=== PATIENT | female | born 1935 | race Caucasian/White ===

== ENCOUNTER → 2016-08-29 | Outpatient (CLI) | payer MEDICARE, MEDICAID ==
[2016-08-29 11:18] LABS: APPEARANCE,URINE CLEAR; BILIRUBIN,URINE NEGATIVE (NEGATIVE); GLUCOSE, URINE NEGATIVE (NEGATIVE); KETONES,URINE NEGATIVE (NEGATIVE); LEUKOCYTE ESTERASE,URINE SMALL (NEGATIVE); NITRITE,URINE NEGATIVE (NEGATIVE); PROTEIN,URINE NEGATIVE (NEGATIVE); UROBILINOGEN,URINE NEGATIVE mg/dL (<2.0)
[2016-08-29 11:24] LABS: ABSOLUTE EOSINOPHILS # (AUTO) 0.2 10^3/uL (0.0-0.6); ABSOLUTE LYMPHOCYTES (AUTO) 1.3 10^3/uL (0.5-4.7); ABSOLUTE MONOCYTES (AUTO) 0.6 10^3/uL (0.1-1.4); ABSOLUTE NEUT (AUTO) 4.8 10^3/uL (1.7-8.2); BASOPHILS % (AUTO) 0.7 % (0-2); EOSINOPHILS % (AUTO) 3.4 % (0-6); HEMOGLOBIN 12.9 g/dL (12.0-15.5); HGB HCT DIFFERENCE -1.3; LYMPHOCYTES % (AUTO) 18.9 % (13-45); MEAN CORPUSCULAR HEMOGLOBIN 29.6 pg (27.0-33.4); MEAN CORPUSCULAR HGB CONC 32.3 g/dL (32.0-36.0); MEAN CORPUSCULAR VOLUME 92 fl (80-97); RED BLOOD COUNT 4.36 10^6/uL (3.72-5.28); RED CELL DISTRIBUTION WIDTH 14.8 % (11.5-14.0)
[2016-08-29 11:52] LABS: ALANINE AMINOTRANSFERASE 32 U/L (9-52); ALBUMIN 3.5 g/dL (3.5-5.0); ALKALINE PHOSPHATASE 89 U/L (38-126); ANION GAP 10 (5-19); ASPARTATE AMINO TRANSFERASE 29 U/L (14-36); BILIRUBIN,TOTAL 0.5 mg/dL (0.2-1.3); BLOOD UREA NITROGEN 26 mg/dL (7-20); CALCIUM 10.7 mg/dL (8.4-10.2); CARBON DIOXIDE 25 mmol/L (22-30); CHLORIDE 109 mmol/L (98-107); CHOLESTEROL 181.67 mg/dL (0-200); CREATININE RESULT 1.09 mg/dL (0.52-1.25); Direct HDL 44 mg/dL (>40); GLUCOSE 88 mg/dL (75-110); POTASSIUM 5.4 mmol/L (3.6-5.0); SODIUM 144.3 mmol/L (137-145); TOTAL PROTEIN 6.8 g/dL (6.3-8.2); TRIGLYCERIDES 89 mg/dL (<150)
[2016-08-29 12:03] LABS: DIRECT LDL 112 mg/dL (<100)
== END ==
LOC: OD 10:23
DX: J44.9 Chronic obstructive pulmonary disease, unspecified (principal); G89.29 Other chronic pain; F41.9 Anxiety disorder, unspecified; I48.91 Unspecified atrial fibrillation; K21.9 Gastro-esophageal reflux disease without esophagitis; R53.83 Other fatigue; Z79.899 Other long term (current) drug therapy
CPT/HCPCS: 36415; 71020; 80053; 80061; 81001; 83036; 84443; 85025

== ENCOUNTER → 2016-09-01 | Outpatient (CLI) | payer MEDICARE, MEDICAID ==
--- NOTE | 2016-09-01 13:47 | WOMENS IMAGING REPORT ---
EXAM DESCRIPTION: BONE DENSITY HIP/SPINE COMPLETED DATE/TIME: 09/01/2016 1:33 pm REASON FOR STUDY: Z78.0 Z79.899 OTHER GROUP HOME (CURRENT) DRUG THERAPY COMPARISON: December 2014 TECHNIQUE: Dual-Energy X-ray Absorptiometry (DEXA) of the AP Spine and Hip. LIMITATIONS: None. FINDINGS: LUMBAR SPINE: The bone mineral density (BMD) measured from L1-L4 in the AP projection correlates with a T-score of -0.7, which is normal as defined by the World Health Organization. 0.9% increase as compared to the previous HIP: The bone mineral density (BMD) measured in the left hip correlates with a T-score of -1.8, which is o steopenia as defined by the World Health Organization. 3.9% increase as compared to the previous liza dy COMMENT: The World Health Organization defines low BMD as follows: T-score: Normal: Greater than -1.0 Osteopenia: Between -1.0 and -2.5 Osteoporosis: Less than -2.5 without fractures Established osteoporosis: Less than -2.5 with fractures In general, you may wish to consider: Diagnosis Treatment Follow-up DEXA Normal BMD Prevention 2-3 years Osteopenia Prevention/Therapy 1-2 years Osteoporosis Therapy Yearly TECHNICAL DOCUMENTATION: JOB ID: [id number] [employer]- All Rights Reserved
== END ==
LOC: WI 09:48
DX: J44.9 Chronic obstructive pulmonary disease, unspecified (principal); G89.29 Other chronic pain; F41.9 Anxiety disorder, unspecified; I48.91 Unspecified atrial fibrillation; K21.9 Gastro-esophageal reflux disease without esophagitis; Z78.0 Asymptomatic menopausal state; R53.83 Other fatigue; Z79.899 Other long term (current) drug therapy
CPT/HCPCS: 77080

== ENCOUNTER → 2016-10-10 | Outpatient (CLI) | payer MEDICARE, MEDICAID | LOC: OD 10:18 | DX: S83.512A Sprain of anterior cruciate ligament of left knee, initial encounter (principal); X58.XXXA Exposure to other specified factors, initial encounter; R05 Cough | CPT/HCPCS: 87205 ==

== ENCOUNTER → 2016-10-10 | Outpatient (CLI) | payer MEDICARE, MEDICAID | LOC: WI 10:52 | DX: Z12.31 Encounter for screening mammogram for malignant neoplasm of breast (principal) | CPT/HCPCS: 77063; G0202; 77067 ==

== ENCOUNTER → 2016-10-13 | Outpatient (CLI) | payer MEDICARE, MEDICAID ==
[2016-10-13 15:18] LABS: CALCIUM 11.2 mg/dL (8.4-10.2); PHOSPHORUS 4.3 mg/dL (2.5-4.5); POTASSIUM 4.9 mmol/L (3.6-5.0)
== END ==
LOC: OD 14:24
DX: E87.5 Hyperkalemia (principal)
CPT/HCPCS: 36415; 82310; 83970; 84100; 84132

== ENCOUNTER → 2016-11-21 | Outpatient (CLI) | payer MEDICARE, MEDICAID | LOC: OD 12:02 | DX: E55.9 Vitamin D deficiency, unspecified (principal); E83.52 Hypercalcemia | CPT/HCPCS: 36415; 82310 ==

== ENCOUNTER 2016-12-04 12:06 | Emergency (ER) | payer MEDICARE, MEDICAID ==
--- NOTE | 2016-12-04 13:01 | ER Document Report ---
ED Medical Screen (RME) - General Chief Complaint: Weakness Stated Complaint: WEAKNESS Mode of Arrival: Wheelchair Information source: Patient, Relative TRAVEL OUTSIDE OF THE [place] IN LAST 30 DAYS: No - HPI Onset: Other - 2 WEEKS Onset/Duration: Gradual Quality of pain: Achy, Dull Severity: Moderate Associated Symptoms: Weakness. denies: Chills, Dizzy/lightheaded, Fever, Shortness of breath Exacerbated by: Other - ANY ACTIVITY Relieved by: Denies Similar symptoms previously: No Recently seen / treated by doctor: Yes - PCP 11/20, SCHEDULED FOR F/U TODAY BUT WAS CANCELLED - Related Data Smoking: Non-smoker Frequency of alcohol use: None Drug Abuse: None Allergies/Adverse Reactions: ampicillin [Ampicillin] Allergy (Verified 12/04/16 12:30) codeine [Codeine] Allergy (Verified 12/04/16 12:30) Sulfa (Sulfonamide Antibiotics) Allergy (Verified 12/04/16 12:30) Past Medical History - General Information source: Patient, Relative - Social History Cigarette use (# per day): No Chew tobacco use (# tins/day): No Frequency of alcohol use: None Drug Abuse: None Lives with: Family Family history: Reviewed & Not Pertinent - Past Medical History Cardiac Medical History: Reports: Hx Atrial Fibrillation, Hx DVT, Hx Heart Attack, Hx Hypertension, Hx Pulmonary Embolism Pulmonary Medical History: Reports: Hx Bronchitis, Hx COPD, Hx Pneumonia Denies: Hx Tuberculosis Endocrine Medical History: Reports: Hx Hypothyroidism. Denies: Hx Diabetes Mellitus Type 1 Renal/ Medical History: Denies: Hx Peritoneal Dialysis GI Medical History: Reports: Hx Gastroesophageal Reflux Disease Musculoskeltal Medical History: Reports Hx Arthritis Psychiatric Medical History: Denies: Hx Depression Past Surgical History: Reports: Hx Appendectomy, Hx Cholecystectomy - Immunizations Hx Diphtheria, Pertussis, Tetanus Vaccination: Yes - unknown Review of Systems - Review of Systems Constitutional: Malaise, Weakness, Weight loss. denies: Chills, Fever EENT: No symptoms reported Cardiovascular: No symptoms reported Respiratory: No symptoms reported Gastrointestinal: Poor appetite Genitourinary: No symptoms reported Female Genitourinary: No symptoms reported Musculoskeletal: Back pain Neurological/Psychological: No symptoms reported Physical Exam - Vital signs Vitals: Pulse Resp BP Pulse Ox 73 20 169/92 H 97 12/04/16 12:31 12/04/16 12:31 12/04/16 12:31 12/04/16 12:31 Interpretation: Hypertensive - General General appearance: Appears well - HEENT Head: Normocephalic Eyes: Normal - Respiratory Respiratory status: No respiratory distress - Cardiovascular Rhythm: Regular - Extremities General upper extremity: Normal inspection General lower extremity: Normal inspection. No: Edema - Skin Skin Temperature: Warm Skin Moisture: Dry Skin Color: Normal Skin Turgor: Elastic Course - Vital Signs Vital signs: Temp Pulse Resp BP Pulse Ox 73 20 169/92 H 97 12/04/16 12:31 12/04/16 12:31 12/04/16 12:31 12/04/16 12:31
[2016-12-04 13:28] LABS: ABSOLUTE BASOPHILS # (AUTO) 0.1 10^3/uL (0.0-0.2); ABSOLUTE EOSINOPHILS # (AUTO) 0.4 10^3/uL (0.0-0.6); ABSOLUTE LYMPHOCYTES (AUTO) 1.5 10^3/uL (0.5-4.7); ABSOLUTE MONOCYTES (AUTO) 0.6 10^3/uL (0.1-1.4); ABSOLUTE NEUT (AUTO) 3.2 10^3/uL (1.7-8.2); EOSINOPHILS % (AUTO) 6.4 % (0-6); HEMATOCRIT 37.4 % (36.0-47.0); HEMOGLOBIN 12.6 g/dL (12.0-15.5); HGB HCT DIFFERENCE 0.4; MEAN CORPUSCULAR HEMOGLOBIN 30.5 pg (27.0-33.4); MEAN CORPUSCULAR HGB CONC 33.5 g/dL (32.0-36.0); MEAN CORPUSCULAR VOLUME 91 fl (80-97); MONOCYTES % (AUTO) 9.9 % (3-13); RED BLOOD COUNT 4.12 10^6/uL (3.72-5.28); RED CELL DISTRIBUTION WIDTH 13.9 % (11.5-14.0); SEGMENTED NEUTROPHILS % (AUTO) 56.7 % (42-78); WHITE BLOOD COUNT 5.7 10^3/uL (4.0-10.5)
--- NOTE | 2016-12-04 13:32 | EKG REPORT ---
SEVERITY:- ABNORMAL ECG - SINUS OR ECTOPIC ATRIAL RHYTHM RBBB AND LAFB : Confirmed by: Cyril Magdaleno MD 04-Dec-2016 13:31:26
[2016-12-04 13:59] LABS: ALANINE AMINOTRANSFERASE 29 U/L (9-52); ALBUMIN 3.6 g/dL (3.5-5.0); ALKALINE PHOSPHATASE 97 U/L (38-126); ANION GAP 11 (5-19); ASPARTATE AMINO TRANSFERASE 27 U/L (14-36); BILIRUBIN,DIRECT 0.2 mg/dL (0.0-0.4); BILIRUBIN,TOTAL 0.4 mg/dL (0.2-1.3); BLOOD UREA NITROGEN 21 mg/dL (7-20); CALCIUM 10.8 mg/dL (8.4-10.2); CARBON DIOXIDE 27 mmol/L (22-30); CHLORIDE 107 mmol/L (98-107); CREATININE RESULT 0.93 mg/dL (0.52-1.25); GLUCOSE 84 mg/dL (75-110); SODIUM 144.6 mmol/L (137-145); TOTAL PROTEIN 6.8 g/dL (6.3-8.2); URIC ACID 5.1 mg/dL (2.5-7.5)
[2016-12-04 14:10] LABS: APPEARANCE,URINE CLEAR; BILIRUBIN,URINE NEGATIVE (NEGATIVE); GLUCOSE, URINE NEGATIVE (NEGATIVE); KETONES,URINE NEGATIVE (NEGATIVE); LEUKOCYTE ESTERASE,URINE LARGE (NEGATIVE); NITRITE,URINE NEGATIVE (NEGATIVE); PROTEIN,URINE 30 mg/dL (NEGATIVE); URINE SPECIFIC GRAVITY 1.011; UROBILINOGEN,URINE NEGATIVE mg/dL (<2.0)
[2016-12-04 14:16] LABS: ERYTHROCYTE SEDIMENTATION RATE 39 mm/hr (0-30)
[2016-12-04 15:31] VITALS: BP 180/99
== END 2016-12-04 15:40 | disposition home or self-care (01) ==
LOC: ER 12:06
DX: E83.52 Hypercalcemia (principal); N39.0 Urinary tract infection, site not specified; R53.1 Weakness; M54.9 Dorsalgia, unspecified; I25.2 Old myocardial infarction; I10 Essential (primary) hypertension; J44.9 Chronic obstructive pulmonary disease, unspecified; R63.0 Anorexia; R63.4 Abnormal weight loss; Z68.26 Body mass index [BMI] 26.0-26.9, adult; Z88.0 Allergy status to penicillin; Z88.5 Allergy status to narcotic agent; Z88.2 Allergy status to sulfonamides; Z86.718 Personal history of other venous thrombosis and embolism; Z86.711 Personal history of pulmonary embolism; R53.81 Other malaise
CPT/HCPCS: 36415; 80053; 81001; 84443; 84550; 85025; 85652; 93005; 93010; 99285

== ENCOUNTER 2016-12-29 12:56 | Outpatient (CLI) | payer MEDICARE, MEDICAID ==
[~2016-12-29 12:56] MED LIST: FERUMOXYTOL (NON-ESRD) 510 MG/NS 100 ML IV PRN; NORMAL SALINE 250 ML IV PRN
== END 2016-12-29 14:14 | disposition home or self-care (01) ==
LOC: II 12:56 → 5TH 12:57 → II 14:14
PROVIDERS: ATTEND Internal Medicine
PROC: 3E033GC Introduction of Other Therapeutic Substance into Peripheral Vein, Percutaneous Approach (ICD-10-PCS; principal; 2016-12-29)
DX: D50.9 Iron deficiency anemia, unspecified (principal); N18.2 Chronic kidney disease, stage 2 (mild)
CPT/HCPCS: 96365; Q0138

== ENCOUNTER → 2017-01-03 | Outpatient (CLI) | payer MEDICARE, MEDICAID ==
--- NOTE | 2017-01-03 12:52 | RADIOLOGY REPORT (SQ) ---
EXAM DESCRIPTION: CHEST PA/LATERAL COMPLETED DATE/TIME: 01/03/2017 12:35 pm REASON FOR STUDY: COUGH R05 COUGH COMPARISON: 08/29/2016. NUMBER OF VIEWS: Two view. TECHNIQUE: Frontal and lateral radiographic views of the chest acquired. LIMITATIONS: None. FINDINGS: LUNGS AND PLEURA: Chronic interstitial changes and pleural thickening in the apices. Few calcified granulomas. No infiltrates, masses or pneumothorax. No pleural effusion. Attenuated blood vessels and flattened sung-diaphragms. MEDIASTINUM AND HILAR STRUCTURES: No masses. No contour abnormalities. HEART AND VASCULAR STRUCTURES: Heart normal in size and contour. No evidence for failure. BONES: No acute findings. HARDWARE: None in the chest. OTHER: No other significant finding. IMPRESSION: COPD. CHRONIC SCARRING. NO ACUTE RADIOGRAPHIC FINDING IN THE CHEST. TECHNICAL DOCUMENTATION: JOB ID: [id number] [employer]- All Rights Reserved
== END ==
LOC: OD 12:25
PROVIDERS: ATTEND Physician Assistant
DX: R05 Cough (principal); J44.9 Chronic obstructive pulmonary disease, unspecified
CPT/HCPCS: 71020

== ENCOUNTER 2017-01-05 09:52 | Outpatient (CLI) | payer MEDICARE, MEDICAID ==
[2017-01-05 11:09] VITALS: BP 183/80
== END 2017-01-05 11:10 | disposition home or self-care (01) ==
LOC: II 09:52 → 5TH 09:53 → II 11:10
PROVIDERS: ATTEND Internal Medicine
PROC: 3E033GC Introduction of Other Therapeutic Substance into Peripheral Vein, Percutaneous Approach (ICD-10-PCS; principal; 2017-01-05)
DX: D50.9 Iron deficiency anemia, unspecified (principal); N18.2 Chronic kidney disease, stage 2 (mild)
CPT/HCPCS: 96365; Q0138

== ENCOUNTER → 2017-04-23 | Outpatient (CLI) | payer MEDICARE, MEDICAID ==
--- NOTE | 2017-04-23 12:54 | RADIOLOGY REPORT (SQ) ---
EXAM DESCRIPTION: LUMBAR SPINE COMPLETE COMPLETED DATE/TIME: 04/23/2017 12:38 pm REASON FOR STUDY: LOW BACK PAIN M54.5 LOW BACK PAIN COMPARISON: 02/26/2014 NUMBER OF VIEWS: Five views including obliques. TECHNIQUE: AP, lateral, oblique, and sacral radiographic images acquired of the lumbar spine. LIMITATIONS: None. FINDINGS: MINERALIZATION: Normal. SEGMENTATION: Normal. No transitional anatomy. ALIGNMENT: There is a rotatory levoscoliosis centered at L3. There is lateral listhesis of L4 relati on to L5. VERTEBRAE: Maintained height. No fracture or worrisome bone lesion. DISCS: Degenerative disc disease is present at L3-4, L4-5, and L5-S1 to lesser degree. Marginal oste ophytes are present. POSTERIOR ELEMENTS: Hypertrophic facet changes are present from L3-S1. HARDWARE: None in the spine. PARASPINAL SOFT TISSUES: Normal. PELVIS: Intact as visualized. No fractures or worrisome bone lesions. SI joints intact. OTHER: No other significant finding. IMPRESSION: 1. Scoliosis with left lateral listhesis of L4 on L5. 2. 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
== END ==
LOC: OD 12:05
PROVIDERS: ATTEND Physician Assistant
DX: M54.5 Low back pain (principal)
CPT/HCPCS: 72110

== ENCOUNTER → 2017-05-25 | Outpatient (CLI) | payer MEDICARE, MEDICAID ==
--- NOTE | 2017-05-25 12:23 | RADIOLOGY REPORT (SQ) ---
EXAM DESCRIPTION: CHEST PA/LATERAL COMPLETED DATE/TIME: 05/25/2017 11:36 am REASON FOR STUDY: COUGH COMPARISON: 01/03/2017 EXAM PARAMETERS: NUMBER OF VIEWS: two views TECHNIQUE: Digital Frontal and Lateral radiographic views of the chest acquired. RADIATION DOSE: NA LIMITATIONS: none FINDINGS: LUNGS AND PLEURA: No opacities, masses or pneumothorax. No pleural effusion. Chronic appe aring changes are again identified. Calcified granuloma appears stable. Again there is evidence for obstructive lung disease. MEDIASTINUM AND HILAR STRUCTURES: No masses or contour abnormalities. HEART AND VASCULAR STRUCTURES: Heart normal size. No evidence for failure. BONES: Bony structures are osteopenic with an exaggerated thoracic kyphosis. There is mild compressi on of 1 of the lower thoracic vertebra unchanged from the previous study. HARDWARE: None in the chest. OTHER: No other significant finding. IMPRESSION: No significant interval change. No acute findings. Other findings as noted above TECHNICAL DOCUMENTATION: JOB ID: [id number] [employer]- All Rights Reserved
== END ==
LOC: OD 11:06
PROVIDERS: ATTEND Physician Assistant
DX: R05 Cough (principal)
CPT/HCPCS: 71020

== ENCOUNTER → 2017-10-23 | Outpatient (CLI) | payer MEDICARE, MEDICAID ==
--- NOTE | 2017-10-23 11:35 | RADIOLOGY REPORT (SQ) ---
EXAM DESCRIPTION: CHEST PA/LATERAL COMPLETED DATE/TIME: 10/23/2017 11:09 am REASON FOR STUDY: WHEEZING COMPARISON: Chest films 08/24/2015, 08/29/2016, 01/03/2017, 05/25/2017 EXAM PARAMETERS: NUMBER OF VIEWS: two views TECHNIQUE: Digital Frontal and Lateral radiographic views of the chest acquired. RADIATION DOSE: NA LIMITATIONS: none FINDINGS: LUNGS AND PLEURA: Lungs are hyperlucent from obstructive disease. Stable biapical mild pl europarenchymal scarring. Old right mid lung calcified granuloma. No acute infiltrates. No pleural effusion. No pneumothorax. MEDIASTINUM AND HILAR STRUCTURES: No masses or contour abnormalities. HEART AND VASCULAR STRUCTURES: Heart normal size. No evidence for failure. BONES: Osteoporotic HARDWARE: Clips right upper quadrant post cholecystectomy OTHER: No other significant finding. IMPRESSION: Obstructive lung disease No acute changes TECHNICAL DOCUMENTATION: JOB ID: [id number] [employer]- All Rights Reserved Reading location - IP/workstation name: [email or web address]
== END ==
LOC: OD 10:47
PROVIDERS: ATTEND Physician Assistant
DX: J44.9 Chronic obstructive pulmonary disease, unspecified (principal); R06.2 Wheezing
CPT/HCPCS: 71046

== ENCOUNTER 2017-12-25 17:09 | Emergency (ER) | payer MEDICARE, MEDICAID ==
--- NOTE | 2017-12-25 17:43 | ER Document Report ---
ED Medical Screen (RME) - General Chief Complaint: Productive Cough Stated Complaint: COUGH, BLOOD IN SPUTUM Time Seen by Provider: 12/25/17 17:36 Notes: RAPID MEDICAL EVALUATION DISCLOSURE I have seen this patient as part of a Rapid Medical Evaluation and, if applicable, placed any initially appropriate orders. The patient will be seen and fully evaluated, including a full history and physical exam, by a provider ( in Main ED or Fast Track) when a room becomes available. 82-year-old female sent here by her PCP office for spitting up blood. She states that this morning she started to spit up some blood but has not had any new cough or vomiting. She has had some new midsternal nonradiating intermittent chest pain over the past few days but cannot tell me if this is worse with exertion because she reports that she does not walk much due to generalized weakness (chronic). She has shortness of breath at baseline and it is unchanged from her baseline. She does take Xarelto. EXAM CTAB RRR TRAVEL OUTSIDE OF THE [place] IN LAST 30 DAYS: No - Related Data Allergies/Adverse Reactions: ampicillin [Ampicillin] Allergy (Verified 12/04/16 12:30) codeine [Codeine] Allergy (Verified 12/04/16 12:30) Sulfa (Sulfonamide Antibiotics) Allergy (Verified 12/04/16 12:30) Past Medical History - Social History Family history: Reviewed & Not Pertinent - Past Medical History Cardiac Medical History: Reports: Hx Atrial Fibrillation, Hx DVT, Hx Heart Attack, Hx Hypertension, Hx Pulmonary Embolism Pulmonary Medical History: Reports: Hx Bronchitis, Hx COPD, Hx Pneumonia Denies: Hx Tuberculosis Endocrine Medical History: Reports: Hx Hypothyroidism. Denies: Hx Diabetes Mellitus Type 1 Renal/ Medical History: Denies: Hx Peritoneal Dialysis GI Medical History: Reports: Hx Gastroesophageal Reflux Disease Musculoskeltal Medical History: Reports Hx Arthritis Psychiatric Medical History: Denies: Hx Depression Past Surgical History: Reports: Hx Appendectomy, Hx Cholecystectomy - Immunizations Hx Diphtheria, Pertussis, Tetanus Vaccination: Yes - unknown Physical Exam - Vital signs Vitals: Temp Pulse Resp BP Pulse Ox 98.8 F 84 20 199/103 H 96 12/25/17 17:19 12/25/17 17:19 12/25/17 17:19 12/25/17 17:19 12/25/17 17:19 Course - Vital Signs Vital signs: Temp Pulse Resp BP Pulse Ox 98.8 F 84 20 199/103 H 96 12/25/17 17:19 12/25/17 17:19 12/25/17 17:19 12/25/17 17:19 12/25/17 17:19
--- NOTE | 2017-12-25 18:07 | RADIOLOGY REPORT (SQ) ---
EXAM DESCRIPTION: CHEST 2 VIEWS COMPLETED DATE/TIME: 12/25/2017 5:59 pm REASON FOR STUDY: 'spitting up blood' COMPARISON: 08/24/2015 EXAM PARAMETERS: NUMBER OF VIEWS: two views TECHNIQUE: Digital Frontal and Lateral radiographic views of the chest acquired. RADIATION DOSE: NA LIMITATIONS: none FINDINGS: LUNGS AND PLEURA: Stable chronic lung change without new opacities, masses or pneumothorax . No pleural effusion. MEDIASTINUM AND HILAR STRUCTURES: No masses or contour abnormalities. HEART AND VASCULAR STRUCTURES: Heart stable in size. No evidence for failure. BONES: No acute findings. HARDWARE: None in the chest. OTHER: No other significant finding. IMPRESSION: NO ACUTE RADIOGRAPHIC FINDING IN THE CHEST. NO SIGNIFICANT CHANGE FROM PRIOR STUDY. TECHNICAL DOCUMENTATION: JOB ID: [id number] [employer]- All Rights Reserved Reading location - IP/workstation name: [email or web address]
[2017-12-25 19:02] LABS: ABSOLUTE BASOPHILS # (AUTO) 0.1 10^3/uL (0.0-0.2); ABSOLUTE EOSINOPHILS # (AUTO) 0.3 10^3/uL (0.0-0.6); ABSOLUTE MONOCYTES (AUTO) 0.7 10^3/uL (0.1-1.4); ABSOLUTE NEUT (AUTO) 4.5 10^3/uL (1.7-8.2); BASOPHILS % (AUTO) 0.9 % (0-2); EOSINOPHILS % (AUTO) 3.3 % (0-6); HEMATOCRIT 40.8 % (36.0-47.0); HEMOGLOBIN 13.7 g/dL (12.0-15.5); LYMPHOCYTES % (AUTO) 26.8 % (13-45); MEAN CORPUSCULAR HEMOGLOBIN 31.3 pg (27.0-33.4); MEAN CORPUSCULAR HGB CONC 33.7 g/dL (32.0-36.0); MEAN CORPUSCULAR VOLUME 93 fl (80-97); MONOCYTES % (AUTO) 9.1 % (3-13); PLATELET COUNT 200 10^3/uL (150-450); RED BLOOD COUNT 4.38 10^6/uL (3.72-5.28); RED CELL DISTRIBUTION WIDTH 14.6 % (11.5-14.0); SEGMENTED NEUTROPHILS % (AUTO) 59.9 % (42-78); TOTAL CELLS COUNTED % (AUTO) 100 %; WHITE BLOOD COUNT 7.5 10^3/uL (4.0-10.5)
[2017-12-25 19:19] LABS: ALANINE AMINOTRANSFERASE 35 U/L (9-52); ALBUMIN 3.9 g/dL (3.5-5.0); ALKALINE PHOSPHATASE 76 U/L (38-126); ANION GAP 12 (5-19); ASPARTATE AMINO TRANSFERASE 31 U/L (14-36); BILIRUBIN,DIRECT 0.2 mg/dL (0.0-0.4); BILIRUBIN,TOTAL 0.2 mg/dL (0.2-1.3); BLOOD UREA NITROGEN 28 mg/dL (7-20); CALCIUM 10.7 mg/dL (8.4-10.2); CARBON DIOXIDE 25 mmol/L (22-30); CHLORIDE 108 mmol/L (98-107); GLUCOSE 92 mg/dL (75-110); POTASSIUM 4.5 mmol/L (3.6-5.0); SODIUM 144.6 mmol/L (137-145)
[2017-12-25 19:25] LABS: INTERNATIONAL RATION (INR) 0.95; PARTIAL THROMBOPLASTIN TIME 26.1 SEC (23.5-35.8); PROTHROMBIN TIME 13.2 SEC (11.4-15.4)
--- NOTE | 2017-12-25 20:28 | RADIOLOGY REPORT (SQ) ---
EXAM DESCRIPTION: CTA CHEST COMPLETED DATE/TIME: 12/25/2017 8:15 pm REASON FOR STUDY: spitting up blood, on xarelto COMPARISON: 05/14/2013 TECHNIQUE: CT scan of the chest performed using helical scanning technique with dynamic intravenous contrast injection. Images reviewed with lung, soft tissue and bone windows. Reconstructed coronal and sagittal MPR images reviewed. Additional 3 dimensional post-processing performed to develop Maximal Intensity Projection images (AR P). All images stored on PACS. All CT scanners at this facility use dose modulation, iterative reconstruction, and/or weight based d osing when appropriate to reduce radiation dose to as low as reasonably achievable (ALARA). [facility]: Dose Right [facility]: CareDose [facility]: Dose Right [facility]: Teradose 4D [facility]: Smart [employer] CONTRAST TYPE AND DOSE: contrast/concentration: Isovue 370.00 mg/ml; Total Contrast Delivered: 66.0 ml; Total Saline Delivered: 106.0 ml Contrast bolus optimized for the pulmonary arteries. Not diagnostic for the aorta. RENAL FUNCTION: GFR > 60. RADIATION DOSE: CT Rad equipment meets quality standard of care and radiation dose reduction techniq ues were employed. CTDIvol: 14.3 - 16.5 mGy. DLP: 537 mGy-cm. . LIMITATIONS: None. FINDINGS: LUNGS AND PLEURA: No consolidation or pleural effusion. Similar bronchiectasis and chroni c interstitial changes-nodularity. AORTA AND GREAT VESSELS: No aneurysm. Contrast bolus not optimized for the aorta. HEART: No pericardial effusion. Mild coronary artery calcifications. PULMONARY ARTERIES: No emboli visualized in the main pulmonary arteries or the segmental branches. HILAR AND MEDIASTINAL STRUCTURES: Similar mediastinal-hilar nodes. HARDWARE: None in the chest. UPPER ABDOMEN: No significant findings. Limited exam. THYROID AND OTHER SOFT TISSUES: No masses. No adenopathy. BONES: No acute finding. 3D MIPS: Confirm above findings. OTHER: No other significant finding. IMPRESSION: No emboli visualized in the main pulmonary arteries or the segmental branches. No consolidation or pleural effusion. Similar bronchiectasis and chronic interstitial changes-nodula rity. COMMENT: Quality ID # [id number]: Final reports with documentation of one or more dose reduction techniques (e.g., Automated exposure control, adjustment of the mA and/or kV according to patient size, use of iterative reconstruction technique) TECHNICAL DOCUMENTATION: JOB ID: [id number] [place]-72 2010 [employer]- All Rights Reserved Reading location - IP/workstation name: [email or web address]
--- NOTE | 2017-12-25 20:37 | EKG REPORT ---
SEVERITY:- ABNORMAL ECG - SINUS RHYTHM RBBB AND LAFB : Confirmed by: Cyril Magdaleno MD 25-Dec-2017 20:35:45
--- NOTE | 2017-12-25 21:25 | ER Document Report ---
ED General - General Chief Complaint: Productive Cough Stated Complaint: COUGH, BLOOD IN SPUTUM Time Seen by Provider: 12/25/17 17:36 Mode of Arrival: Ambulatory Information source: Patient Notes: 82-year-old female previous patient who presents the emergency department with complaint of coughing up blood this morning. Patient reports that she had an episode of coughing up bright red blood clots which she called her primary care doctor and had an appointment with at 430pm today. Patient reports that Dr. Padilla referred her to the emergency department for possible workup for a PE. Patient reports that while Dr. Padilla was assessing her he was able to elicit some chest pain that is only present with palpation to the right side of her chest. Patient denies any other symptoms or any other recent illness. Patient reports that she takes Xarelto for a history of DVTs, PEs as well as atrial fibrillation. TRAVEL OUTSIDE OF THE [place] IN LAST 30 DAYS: No - Related Data Allergies/Adverse Reactions: ampicillin [Ampicillin] Allergy (Verified 12/04/16 12:30) codeine [Codeine] Allergy (Verified 12/04/16 12:30) Sulfa (Sulfonamide Antibiotics) Allergy (Verified 12/04/16 12:30) Past Medical History - General Information source: Patient - Social History Smoking Status: Never Smoker Frequency of alcohol use: None Lives with: Alone Family History: Reviewed & Not Pertinent, Other Patient has suicidal ideation: No Patient has homicidal ideation: No - Past Medical History Cardiac Medical History: Reports: Hx Atrial Fibrillation, Hx DVT, Hx Heart Attack, Hx Hypertension, Hx Pulmonary Embolism Pulmonary Medical History: Reports: Hx Bronchitis, Hx COPD, Hx Pneumonia Denies: Hx Tuberculosis Endocrine Medical History: Reports: Hx Hypothyroidism. Denies: Hx Diabetes Mellitus Type 1 Renal/ Medical History: Denies: Hx Peritoneal Dialysis GI Medical History: Reports: Hx Gastroesophageal Reflux Disease Musculoskeltal Medical History: Reports Hx Arthritis Psychiatric Medical History: Denies: Hx Depression Past Surgical History: Reports: Hx Appendectomy, Hx Cholecystectomy - Immunizations Hx Diphtheria, Pertussis, Tetanus Vaccination: Yes - unknown Hx Pneumococcal Vaccination: 08/06/06 Review of Systems - Review of Systems Constitutional: No symptoms reported EENT: No symptoms reported Cardiovascular: See HPI Respiratory: See HPI Gastrointestinal: No symptoms reported Genitourinary: No symptoms reported Female Genitourinary: No symptoms reported Musculoskeletal: No symptoms reported Skin: No symptoms reported Hematologic/Lymphatic: No symptoms reported Neurological/Psychological: No symptoms reported Physical Exam - Vital signs Vitals: Temp Pulse Resp BP Pulse Ox 98.8 F 84 20 199/103 H 96 12/25/17 17:19 12/25/17 17:19 12/25/17 17:19 12/25/17 17:19 12/25/17 17:19 - Notes Notes: PHYSICAL EXAMINATION: GENERAL: Well-appearing, well-nourished and in no acute distress. HEAD: Atraumatic, normocephalic. EYES: Pupils equal round and reactive to light, extraocular movements intact, conjunctiva are normal. ENT: Nares patent, oropharynx clear without exudates. Moist mucous membranes. NECK: Normal range of motion, supple without lymphadenopathy LUNGS: Breath sounds clear to auscultation bilaterally and equal. No wheezes rales or rhonchi. HEART: Regular rate and rhythm without murmurs ABDOMEN: Soft, nontender, nondistended abdomen. No guarding, no rebound. No masses appreciated. Female : deferred Musculoskeletal: Normal range of motion, no pitting or edema. No cyanosis. NEUROLOGICAL: Cranial nerves grossly intact. Normal speech, normal gait. Normal sensory, motor exams PSYCH: Normal mood, normal affect. SKIN: Warm, Dry, normal turgor, no rashes or lesions noted. Course - Re-evaluation Re-evalutation: 82-year-old female patient presenting with hemoptysis and right-sided chest pain only with palpation. Patient has a history of pulmonary embolism and DVT. Patient was sent over by her primary care provider, Dr. Padilla for evaluation of possible pulmonary embolism. Patient was initially seen up from triage and orders were initiated. CBC, comprehensive metabolic panel and coagulation panel are all unremarkable. Chest x-ray is unremarkable. EKG is unchanged from previous, no ST segment elevations or depressions and no other acute findings. Currently pending CTA. Patient denies any chest pain or shortness of breath and denies any additional hemoptysis since her one episode this morning. Patient is hypertensive, however patient denies taking her blood pressure medications evening. Patient has no tachycardia, no shortness of breath and no dyspnea. CTA negative for any acute findings to include pulmonary embolism or pneumonia. Consult to Dr. Padilla via telephone who recommends patient to hold her Xarelto today and follow-up with him in his office first thing in the morning. Patient given strict ED return precautions. Patient does verbalize understanding and will see Dr. Padilla in the office in the morning. - Vital Signs Vital signs: Temp Pulse Resp BP Pulse Ox 98.2 F 84 17 178/88 H 100 12/25/17 21:15 12/25/17 17:19 12/25/17 21:15 12/25/17 21:20 12/25/17 21:15 - Laboratory Result Diagrams: 12/25/17 18:55 12/25/17 18:55 Laboratory results interpreted by me: 12/25/17 12/25/17 18:55 18:55 RDW 14.6 H Chloride 108 H BUN 28 H Est GFR (Non-Af Amer) 50 L Calcium 10.7 H Discharge - Discharge Clinical Impression: Hemoptysis Condition: Stable Disposition: HOME, SELF-CARE Admitting Provider: Hans Additional Instructions: Hemoptysis Hemoptysis (coughing up blood) can occur with many different diseases. The physician has evaluated you to see if there is evidence of an underlying problem requiring further evaluation. If he has recommended further tests, you should follow up as instructed. Hemoptysis without an identifiable cause can be due to tumors or hidden infections. The CT scan of your chest was normal. I spoke with Dr. Padilla who recommends to hold the dose of Xarelto for today if you have not taken it yet. Please follow up with him in the morning. Return for a recheck if the blood increases greatly in amount, or if you develop shortness of breath, high fever, severe chest pain, or other alarming new symptoms. Referrals: RALPH PADILLA MD [Primary Care Provider] - Follow up as needed
[2017-12-25 21:44] VITALS: BP 178/88
== END 2017-12-25 21:35 | disposition home or self-care (01) ==
LOC: ER 17:09
DX: R04.2 Hemoptysis (principal); I48.91 Unspecified atrial fibrillation; I10 Essential (primary) hypertension; Z86.718 Personal history of other venous thrombosis and embolism; I25.2 Old myocardial infarction; Z88.2 Allergy status to sulfonamides; Z88.6 Allergy status to analgesic agent; Z90.49 Acquired absence of other specified parts of digestive tract
CPT/HCPCS: 36415; 71046; 71275; 80053; 84484; 85025; 85610; 85730; 93005; 93010; 99284

== ENCOUNTER 2018-02-24 09:00 | Inpatient (IN) | payer MEDICARE, MEDICAID ==
[2018-02-24] MEDS ORDERED: ONDANSETRON 4 MG TAB.RAPDIS PO ONE (09:28)
[2018-02-24] MEDS ORDERED: IPRATROPIUM/ALBUTEROL 0.5-2.5 MG/3 ML AMPUL NEB ONE (09:29)
[2018-02-24] MEDS ORDERED: DILTIAZEM HCL 120 MG CAP.SR.24H PO ONE (09:29)
--- NOTE | 2018-02-24 09:31 | ER Document Report ---
ED Medical Screen (RME) - General Chief Complaint: Vomiting Stated Complaint: HEAD PAIN Time Seen by Provider: 02/24/18 09:21 TRAVEL OUTSIDE OF THE [place] IN LAST 30 DAYS: No - HPI Notes: 02/24/18 09:29 Patient coming in complaining of pain everywhere is ear pain and throat pain pain diffusely through her whole body specific area with nausea vomiting shortness of breath coughing yellow-green sputum history COPD. Patient also has history of atrial fibrillation on Xarelto. Patient requiring oxygen here in triage. - Related Data Allergies/Adverse Reactions: ampicillin [Ampicillin] Allergy (Verified 02/24/18 09:01) codeine [Codeine] Allergy (Verified 02/24/18 09:01) Sulfa (Sulfonamide Antibiotics) Allergy (Verified 02/24/18 09:01) Past Medical History - Social History Chew tobacco use (# tins/day): No Frequency of alcohol use: None Drug Abuse: None Family history: Reviewed & Not Pertinent - Past Medical History Cardiac Medical History: Reports: Hx Atrial Fibrillation, Hx DVT, Hx Heart Attack, Hx Hypertension, Hx Pulmonary Embolism Pulmonary Medical History: Reports: Hx Bronchitis, Hx COPD, Hx Pneumonia Denies: Hx Tuberculosis Endocrine Medical History: Reports: Hx Hypothyroidism. Denies: Hx Diabetes Mellitus Type 1 Renal/ Medical History: Denies: Hx Peritoneal Dialysis GI Medical History: Reports: Hx Gastroesophageal Reflux Disease Musculoskeltal Medical History: Reports Hx Arthritis Psychiatric Medical History: Denies: Hx Depression Past Surgical History: Reports: Hx Appendectomy, Hx Cholecystectomy - Immunizations Hx Diphtheria, Pertussis, Tetanus Vaccination: Yes - unknown Review of Systems - Review of Systems Respiratory: Cough, Sputum, Wheezing Gastrointestinal: Nausea, Vomiting Physical Exam - Vital signs Vitals: Temp Pulse Resp BP Pulse Ox 99.2 F 76 24 H 142/72 H 91 L 02/24/18 09:11 02/24/18 09:11 02/24/18 09:11 02/24/18 09:11 02/24/18 09:11 - Respiratory Respiratory status: No respiratory distress Chest status: Nontender Breath sounds: Wheezing Chest palpation: Other Course - Vital Signs Vital signs: Temp Pulse Resp BP Pulse Ox 99.2 F 76 24 H 142/72 H 91 L 02/24/18 09:11 02/24/18 09:11 02/24/18 09:11 02/24/18 09:11 02/24/18 09:11 Doctor's Discharge - Discharge Referrals: RALPH PADILLA MD [Primary Care Provider] - Follow up as needed
--- NOTE | 2018-02-24 10:13 | ER Document Report ---
ED Respiratory Problem - General Chief Complaint: Vomiting Stated Complaint: HEAD PAIN Time Seen by Provider: 02/24/18 09:21 Mode of Arrival: Ambulatory Information source: Patient Notes: 82-year-old female has been feeling ill since with body aches chills and cough. She is coughing up some mucus. Today she seemed more short of breath than yesterday. She does have a history of COPD. No chest pain. She did vomit but has no abdominal pain or dysuria. No flank pain. Her daughter is here with her. TRAVEL OUTSIDE OF THE [place] IN LAST 30 DAYS: No - Related Data Allergies/Adverse Reactions: ampicillin [Ampicillin] Allergy (Verified 02/24/18 09:01) codeine [Codeine] Allergy (Verified 02/24/18 09:01) Sulfa (Sulfonamide Antibiotics) Allergy (Verified 02/24/18 09:01) Past Medical History - General Information source: Patient - Social History Smoking Status: Former Smoker Chew tobacco use (# tins/day): No Frequency of alcohol use: None Drug Abuse: None Lives with: Family Family History: Reviewed & Not Pertinent, Other Patient has suicidal ideation: No Patient has homicidal ideation: No - Past Medical History Cardiac Medical History: Reports: Hx Atrial Fibrillation, Hx DVT, Hx Heart Attack, Hx Hypertension, Hx Pulmonary Embolism Pulmonary Medical History: Reports: Hx Bronchitis, Hx COPD, Hx Pneumonia Denies: Hx Tuberculosis Endocrine Medical History: Reports: Hx Hypothyroidism Renal/ Medical History: Denies: Hx Peritoneal Dialysis GI Medical History: Reports: Hx Gastroesophageal Reflux Disease Musculoskeletal Medical History: Reports Hx Arthritis Psychiatric Medical History: Denies: Hx Depression Past Surgical History: Reports: Hx Appendectomy, Hx Cholecystectomy - Immunizations Hx Diphtheria, Pertussis, Tetanus Vaccination: Yes - unknown Hx Pneumococcal Vaccination: 08/06/06 Review of Systems - Review of Systems Constitutional: See HPI EENT: See HPI Cardiovascular: No symptoms reported Respiratory: See HPI Gastrointestinal: No symptoms reported Genitourinary: No symptoms reported Female Genitourinary: No symptoms reported Musculoskeletal: No symptoms reported Skin: No symptoms reported Hematologic/Lymphatic: No symptoms reported Neurological/Psychological: No symptoms reported Physical Exam - Vital signs Vitals: Temp Pulse Resp BP Pulse Ox 99.2 F 76 24 H 142/72 H 91 L 02/24/18 09:11 02/24/18 09:11 02/24/18 09:11 02/24/18 09:11 02/24/18 09:11 Interpretation: Tachycardic, Hypoxic, Tachypneic - General General appearance: Alert, Other - HEENT Head: Normocephalic, Atraumatic Eyes: Normal Conjunctiva: Normal Pupils: PERRL Tympanic membrane: Normal Mucous membranes: Dry Pharynx: Normal Neck: Supple. No: Lymphadenopathy - Respiratory Respiratory status: No respiratory distress Chest status: Nontender Breath sounds: Rales - right, Wheezing - Inspiratory and expiratory bilaterally Chest palpation: Normal - Cardiovascular Rhythm: Regular Heart sounds: Normal auscultation Murmur: No - Abdominal Inspection: Normal Distension: No distension Bowel sounds: Normal Tenderness: Nontender Organomegaly: No organomegaly - Back Back: Normal, Nontender. No: CVA tenderness - Extremities General upper extremity: Normal inspection, Nontender, Normal color, Normal ROM , Normal temperature General lower extremity: Normal inspection, Nontender, Normal color, Normal ROM , Normal temperature, Normal weight bearing. No: Shreya's sign - Neurological Neuro grossly intact: Yes Cognition: Normal Orientation: AAOx4 Camelia Coma Scale Eye Opening: Spontaneous Camelia Coma Scale Verbal: Oriented Camelia Coma Scale Motor: Obeys Commands Camelia Coma Scale Total: 15 Speech: Normal Motor strength normal: LUE, RUE, LLE, RLE Sensory: Normal - Psychological Associated symptoms: Normal affect, Normal mood - Skin Skin Temperature: Warm Skin Moisture: Dry Skin Color: Normal Skin irregularity: negative: Rash Course - Re-evaluation Re-evalutation: 02/24/18 11:[address] aCrlisle give her Levaquin 750 mg IV, 500 mL bolus do not want to initiate more fluid than that since the chest x-ray shows possible edema per the radiologist. Her white count is 19,000. O2 is 4 L/min nasal cannula at this time. Her pulse initially was 120s-130s A. fib with RVR and she was given diltiazem 120 mg p.o. and it is trending down at this time. She is still mildly tachypneic. BMP is 3460. EKG shows atrial fibrillation with RVR and right bundle branch block. Signed by Dr. Carlisle who evaluated the EKG as well. 02/24/18 11:49 Lactic acid is 2.6. 02/24/18 11:[address] huff. 02/24/18 11:[address] Huff will admit for Dr. Maxwell to [facility] for pneumonia. I also added a d- dimer if she has a history of PE. Her pulse ox is 93 while getting a albuterol 5 mg.She is hungry so I will order a tray and she is willing to be admitted. - Vital Signs Vital signs: Temp Pulse Resp BP Pulse Ox 102.6 F H 46 L 19 124/94 H 95 02/24/18 14:55 02/24/18 09:12 02/24/18 14:00 02/24/18 12:00 02/24/18 14:00 - Laboratory Result Diagrams: 02/24/18 10:26 02/24/18 10:26 Laboratory results interpreted by me: 02/24/18 02/24/18 02/24/18 10:26 10:26 10:26 WBC 19.6 H Seg Neutrophils % 85.0 H Lymphocytes % 7.6 L Absolute Neutrophils 16.7 H D-Dimer Carbon Dioxide 21 L BUN 28 H Creatinine 1.42 H Est GFR ( Amer) 43 L Est GFR (Non-Af Amer) 35 L Lactic Acid 2.6 H Direct Bilirubin 0.5 H NT-Pro-B Natriuret Pep Urine Protein Urine Urobilinogen 02/24/18 02/24/18 02/24/18 10:26 10:26 11:22 WBC Seg Neutrophils % Lymphocytes % Absolute Neutrophils D-Dimer 0.60 H Carbon Dioxide BUN Creatinine Est GFR ( Amer) Est GFR (Non-Af Amer) Lactic Acid Direct Bilirubin NT-Pro-B Natriuret Pep 3180 H Urine Protein 100 H Urine Urobilinogen 2.0 H Discharge - Discharge Clinical Impression: Hypoxia Right lower lobe pneumonia Qualifiers: Pneumonia type: due to unspecified organism Qualified Code(s): J18.1 - Lobar pneumonia, unspecified organism Atrial fibrillation Qualifiers: Atrial fibrillation type: chronic Qualified Code(s): I48.2 - Chronic atrial fibrillation Condition: Stable Disposition: ADMITTED INPATIENT Admitting Provider: Hans Unit Admitted: [facility]
[2018-02-24] MEDS ORDERED: ALBUTEROL SULFATE 0.083% NEB 2.5 MG/3 ML AMPUL NEB ONE (10:24)
--- NOTE | 2018-02-24 10:31 | RADIOLOGY REPORT (SQ) ---
EXAM DESCRIPTION: CHEST SINGLE VIEW COMPLETED DATE/TIME: 02/24/2018 10:21 am REASON FOR STUDY: sob, PER ERICKA CHANGE TO PORTABLE COMPARISON: 12/25/2017 and 10/23/2017 EXAM PARAMETERS: NUMBER OF VIEWS: One view. TECHNIQUE: Single frontal radiographic view of the chest acquired. RADIATION DOSE: NA LIMITATIONS: None. FINDINGS: LUNGS AND PLEURA: Increasing airspace opacities in the right lung base. No pleural effusi on or pneumothorax appreciated MEDIASTINUM AND HILAR STRUCTURES: Unchanged HEART AND VASCULAR STRUCTURES: Unchanged BONES: No acute findings. HARDWARE: None in the chest. OTHER: No other significant finding. IMPRESSION: Increasing airspace opacities in the right lung base. This could be consistent with pne umonia in the correct clinical setting. Differential diagnosis includes early pulmonary edema. TECHNICAL DOCUMENTATION: JOB ID: [id number] [email or web address]- All Rights Reserved Reading location - IP/workstation name: [email or web address]
[2018-02-24 11:02] LABS: VENOUS BLOOD BASE EXCESS -1.7 mmol/L; VENOUS BLOOD HCO3 24.6 mmol/L (20-32); VENOUS BLOOD PCO2 47.2 mmHg (35-63); VENOUS BLOOD PH 7.33 (7.30-7.42)
[2018-02-24 11:04] LABS: ABSOLUTE LYMPHOCYTES (AUTO) 1.5 10^3/uL (0.5-4.7); ABSOLUTE MONOCYTES (AUTO) 1.4 10^3/uL (0.1-1.4); ABSOLUTE NEUT (AUTO) 16.7 10^3/uL (1.7-8.2); BASOPHILS % (AUTO) 0.2 % (0-2); EOSINOPHILS % (AUTO) 0.1 % (0-6); HEMOGLOBIN 14.3 g/dL (12.0-15.5); LYMPHOCYTES % (AUTO) 7.6 % (13-45); MEAN CORPUSCULAR HGB CONC 33.3 g/dL (32.0-36.0); MEAN CORPUSCULAR VOLUME 93 fl (80-97); MONOCYTES % (AUTO) 7.1 % (3-13); PLATELET COUNT 248 10^3/uL (150-450); RED BLOOD COUNT 4.61 10^6/uL (3.72-5.28); RED CELL DISTRIBUTION WIDTH 13.9 % (11.5-14.0); TOTAL CELLS COUNTED % (AUTO) 100 %; WHITE BLOOD COUNT 19.6 10^3/uL (4.0-10.5)
[2018-02-24 11:06] LABS: INTERNATIONAL RATION (INR) 1.14; PROTHROMBIN TIME 15.2 SEC (11.4-15.4)
[2018-02-24] MEDS ORDERED: NORMAL SALINE 1000 ML 500 ML IV ONE (11:11)
[2018-02-24 11:14] LABS: PARTIAL THROMBOPLASTIN TIME 30.8 SEC (23.5-35.8)
[2018-02-24] MEDS ORDERED: LEVOFLOXACIN 750 MG/D5W RTU 750 MG/150 ML RTUPB IV ONE (11:19)
[2018-02-24 11:26] LABS: ALANINE AMINOTRANSFERASE 18 U/L (9-52); ALBUMIN 3.7 g/dL (3.5-5.0); ALKALINE PHOSPHATASE 96 U/L (38-126); ANION GAP 17 (5-19); ASPARTATE AMINO TRANSFERASE 28 U/L (14-36); BILIRUBIN,DIRECT 0.5 mg/dL (0.0-0.4); BILIRUBIN,TOTAL 0.9 mg/dL (0.2-1.3); BLOOD UREA NITROGEN 28 mg/dL (7-20); CALCIUM 10.2 mg/dL (8.4-10.2); CARBON DIOXIDE 21 mmol/L (22-30); CHLORIDE 103 mmol/L (98-107); GLUCOSE 108 mg/dL (75-110); LIPASE 74.7 U/L (23-300); POTASSIUM 4.5 mmol/L (3.6-5.0); TOTAL PROTEIN 7.3 g/dL (6.3-8.2)
[2018-02-24 11:40] LABS: AMORPHOUS SEDIMENT,URINE TRACE /HPF; APPEARANCE,URINE SLIGHTLY-CLOUDY; BILIRUBIN,URINE NEGATIVE (NEGATIVE); COLOR,URINE YELLOW; GLUCOSE, URINE NEGATIVE (NEGATIVE); KETONES,URINE NEGATIVE (NEGATIVE); LEUKOCYTE ESTERASE,URINE NEGATIVE (NEGATIVE); NITRITE,URINE NEGATIVE (NEGATIVE); PROTEIN,URINE 100 mg/dL (NEGATIVE); URINE SPECIFIC GRAVITY 1.015
[2018-02-24] MEDS ORDERED: ACETAMINOPHEN 325 MG TABLET PO ONE (14:58)
[2018-02-24] MEDS ORDERED: NORMAL SALINE 1000 ML 1,000 ML IV ONE (14:59)
[2018-02-24] MEDS ORDERED: NORMAL SALINE 1000 ML 1,000 ML IV PRN (15:29)
--- NOTE | 2018-02-24 19:30 | PDOC H&P ---
History of Present Illness Admission Date/PCP: 02/24/18 12:26 KAYLA PADILLA MD Patient complains of: Difficulty with breathing History of Present Illness: SAADIA HORNER is a 82 year old female patient of Dr Kayla Padilla who presented to the ED with worsening difficulty with breathing and associated productive cough.There is associated chills, abdominal pain and vomiting prior to presentation to the ED. Her initial evaluation did revealed leukocytosis with air space disease process in the right lower lung zone, elevated renal indices suggestive of acute injury and marginal elevation of her D-Dimmer. Patient has history of COPD. 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 She was advised hospitalization for further evaluation and management. Past Medical History Cardiac Medical History: Reports: Atrial Fibrillation, DVT, Myocardial Infarction, Hypertension, Pulmonary Embolism Pulmonary Medical History: Reports: Bronchitis, Chronic Obstructive Pulmonary Disease (COPD), Pneumonia Denies: Tuberculosis Endocrine Medical History: Reports: Hypothyroidism Denies: Diabetes Mellitus Type 1 GI Medical History: Reports: Gastroesophageal Reflux Disease Musculoskeltal Medical History: Reports: Arthritis Psychiatric Medical History: Denies: Depression Past Surgical History Past Surgical History: Reports: Appendectomy, Cholecystectomy Social History Lives with: Family Smoking Status: Never Smoker Frequency of Alcohol Use: None Hx Recreational Drug Use: No Drugs: None Hx Prescription Drug Abuse: No - Advance Directive Resuscitation Status: Full Code Family History Family History: Reviewed & Not Pertinent, Other Parental Family History Reviewed: Yes Children Family History Reviewed: Yes Sibling(s) Family History Reviewed.: Yes Medication/Allergy Home Medications: Levothyroxine Sodium 75 mcg PO QPM 06/19/11 Metoprolol Succinate [Toprol Xl 50 mg Tab.sr] 75 mg PO DAILY 06/19/11 Rivaroxaban [Xarelto] 20 mg PO DAILY 08/05/13 Diltiazem HCl [Cardizem Cd 120 mg Capsule] 120 mg PO DAILY 10/07/13 Diazepam [Valium 5 mg Tablet] 5 mg PO DAILYP PRN 05/21/14 Acetaminophen [Tylenol Arthritis 650 mg Tablet] 650 mg PO Q12HP PRN 02/24/18 Acetylcysteine [Nac] 600 mg PO DAILY 02/24/18 Albuterol Sulfate [Ventolin Hfa] 1 puff IH DAILYP PRN 02/24/18 Alendronate Sodium [Fosamax] 70 mg PO Q7D 02/24/18 Cetirizine HCl [Zyrtec 10 mg Tablet] 10 mg PO DAILYP PRN 02/24/18 Cholecalciferol (Vitamin D3) [Vitamin D3 1000 Unit Tablet] 1,000 unit PO DAILY 02/24/18 Docusate Sodium [Colace 100 mg Capsule] 100 mg PO DAILYP PRN 02/24/18 Esomeprazole Magnesium [Nexium] 40 mg PO DAILY 02/24/18 Umeclidinium Brm/Vilanterol Tr [Anoro Ellipta 62.5-25 Mcg INH] 1 puff IH DAILY 02/24/18 Valsartan [Diovan 80 mg Tablet] 80 mg PO DAILY 02/24/18 Allergies/Adverse Reactions: ampicillin [Ampicillin] Allergy (Verified 02/24/18 17:00) codeine [Codeine] Allergy (Verified 02/24/18 17:00) Sulfa (Sulfonamide Antibiotics) Allergy (Verified 02/24/18 17:00) Review of Systems Constitutional: PRESENT: chills Eyes: ABSENT: visual disturbances Ears: ABSENT: hearing changes Nose, Mouth, and Throat: ABSENT: as per HPI, headache(s), mouth pain, sore throat, vertigo, other Cardiovascular: ABSENT: chest pain, dyspnea on exertion, edema, orthropnea, palpitations Respiratory: PRESENT: cough, dyspnea, sputum Gastrointestinal: PRESENT: abdominal pain, vomiting. ABSENT: as per HPI, bloating, coffee ground emesis, constipation, diarrhea, dysphagia, heartburn, hematemesis, hematochezia, melena, nausea, other Genitourinary: ABSENT: dysuria, hematuria Musculoskeletal: ABSENT: joint swelling Integumentary: ABSENT: rash, wounds Neurological: ABSENT: abnormal gait, abnormal speech, confusion, dizziness, focal weakness, syncope Psychiatric: ABSENT: anxiety, depression, homidical ideation, suicidal ideation Endocrine: ABSENT: cold intolerance, heat intolerance, polydipsia, polyuria Hematologic/Lymphatic: ABSENT: easy bleeding, easy bruising, lymphadenopathy Allergic/Immunologic: ABSENT: seasonal rhinorrhea Physical Exam Vital Signs: Temp Pulse Resp BP Pulse Ox 97.7 F 93 19 106/54 L 93 02/24/18 17:31 02/24/18 17:31 02/24/18 17:31 02/24/18 17:31 02/24/18 17:31 Intake & Output 02/23/18 02/24/18 02/25/18 06:59 06:59 06:59 Output Total 0 Balance 0 Weight 64.3 kg General appearance: PRESENT: no acute distress Head exam: PRESENT: atraumatic, normocephalic Eye exam: PRESENT: conjunctiva pink, EOMI, PERRLA. ABSENT: scleral icterus Mouth exam: PRESENT: moist, neck supple, tongue midline Neck exam: PRESENT: full ROM. ABSENT: carotid bruit, JVD, lymphadenopathy, thyromegaly Respiratory exam: PRESENT: clear to auscultation stephanie, decreased breath sounds - at lung bases Cardiovascular exam: PRESENT: RRR. ABSENT: diastolic murmur, rubs, systolic murmur Pulses: PRESENT: normal dorsalis pedis pul, +2 pedal pulses bilateral Vascular exam: PRESENT: normal capillary refill. ABSENT: pallor GI/Abdominal exam: PRESENT: normal bowel sounds, soft. ABSENT: distended, guarding, mass, organolmegaly, rebound, tenderness Rectal exam: PRESENT: deferred Extremities exam: ABSENT: pedal edema Musculoskeletal exam: PRESENT: normal inspection Neurological exam: PRESENT: alert, awake, oriented to person, oriented to place , oriented to time, oriented to situation, CN II-XII grossly intact. ABSENT: motor sensory deficit Psychiatric exam: PRESENT: appropriate affect, normal mood. ABSENT: homicidal ideation, suicidal ideation Skin exam: PRESENT: dry, intact, warm. ABSENT: cyanosis, rash Results Laboratory Results: I reviewed her laboratory report on [employer] and form significant part of my medical decision making. 02/24/18 15:28 Lactic Acid 2.7 H Impressions: Chest X-Ray 02/24/18 09:23 IMPRESSION: Increasing airspace opacities in the right lung base. This could be consistent with pneumonia in the correct clinical setting. Differential diagnosis includes early pulmonary edema. Assessment & Plan - Diagnosis (1) Right lower lobe pneumonia Qualifiers: Pneumonia type: due to unspecified organism Qualified Code(s): J18.1 - Lobar pneumonia, unspecified organism Is this a current diagnosis for this admission?: Yes Plan: See covering attending physician admission orders. (2) COPD exacerbation Is this a current diagnosis for this admission?: Yes Plan: See covering attending physician admission orders. (3) History of DVT (deep vein thrombosis) Is this a current diagnosis for this admission?: Yes Plan: See covering attending physician admission orders. (4) History of pulmonary embolism Is this a current diagnosis for this admission?: Yes Plan: See covering attending physician admission orders. (5) Chronic atrial fibrillation Is this a current diagnosis for this admission?: Yes Plan: See covering attending physician admission orders. (6) HTN (hypertension) Qualifiers: Hypertension type: essential hypertension Qualified Code(s): I10 - Essential (primary) hypertension Is this a current diagnosis for this admission?: Yes Plan: See covering attending physician admission orders. (7) Hypothyroidism Qualifiers: Hypothyroidism type: unspecified Qualified Code(s): E03.9 - Hypothyroidism , unspecified Is this a current diagnosis for this admission?: Yes Plan: See covering attending physician admission orders. - Time Time Spent: 50 to 70 Minutes Medications reviewed and adjusted accordingly: Yes Anticipated discharge: Home with Homehealth Within: Other - Inpatient Certification Based on my medical assessment, after consideration of the patient's comorbidities, presenting symptoms, or acuity I expect that the services needed warrant INPATIENT care.: Yes I certify that my determination is in accordance with my understanding of Medicare's requirements for reasonable and necessary INPATIENT services [42 CFR 412.3e].: Yes Medical Necessity: Need Close Monitoring Due to Risk of Patient Decompensation, Need For IV Fluids, Need For Continuous Telemetry Monitoring, Need for Nebulizer Therapy and Monitoring of Response, Need for IV Antibiotics, Risk of Complication if Not Cared For in Hospital 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
[2018-02-24] MEDS ORDERED: CETIRIZINE 10 MG TABLET PO PRN (19:33)
[2018-02-24] MEDS ORDERED: ALBUTEROL SULFATE HFA (90 MCG/PUFF) 8 GM MDI (1 MDI/ER DISP) IH PRN (19:33)
[2018-02-24] MEDS ORDERED: (PENDING PHARMACY ID) (Alendronate Sodium [Fosamax] 70 MG) PO SCH (19:45)
--- NOTE | 2018-02-24 22:59 | EKG REPORT ---
SEVERITY:- ABNORMAL ECG - ATRIAL FIBRILLATION VS MAT RIGHT BUNDLE BRANCH BLOCK : Confirmed by: Shirin Victor 24-Feb-2018 22:58:22
[2018-02-25] MEDS ORDERED: LANSOPRAZOLE 30 MG TAB.RAP.DR PO SCH (06:00)
[2018-02-25 07:26] LABS: ABSOLUTE BASOPHILS # (AUTO) 0.1 10^3/uL (0.0-0.2); ABSOLUTE EOSINOPHILS # (AUTO) 0.1 10^3/uL (0.0-0.6); ABSOLUTE LYMPHOCYTES (AUTO) 1.1 10^3/uL (0.5-4.7); ABSOLUTE MONOCYTES (AUTO) 1.1 10^3/uL (0.1-1.4); ABSOLUTE NEUT (AUTO) 13.8 10^3/uL (1.7-8.2); BASOPHILS % (AUTO) 0.3 % (0-2); EOSINOPHILS % (AUTO) 0.6 % (0-6); HEMATOCRIT 34.8 % (36.0-47.0); LYMPHOCYTES % (AUTO) 6.7 % (13-45); MEAN CORPUSCULAR HEMOGLOBIN 30.3 pg (27.0-33.4); MEAN CORPUSCULAR HGB CONC 32.8 g/dL (32.0-36.0); MEAN CORPUSCULAR VOLUME 92 fl (80-97); MONOCYTES % (AUTO) 7.1 % (3-13); PLATELET COUNT 177 10^3/uL (150-450); RED BLOOD COUNT 3.77 10^6/uL (3.72-5.28); SEGMENTED NEUTROPHILS % (AUTO) 85.3 % (42-78); TOTAL CELLS COUNTED % (AUTO) 100 %; WHITE BLOOD COUNT 16.1 10^3/uL (4.0-10.5)
[2018-02-25 07:50] LABS: HEMOGLOBIN 11.4 g/dL (12.0-15.5)
[2018-02-25] MEDS ORDERED: ALBUTEROL SULFATE HFA (90 MCG/PUFF) 200 PUFF/8.5 GM MDI IH PRN (07:58)
[2018-02-25 09:02] LABS: ALANINE AMINOTRANSFERASE 20 U/L (9-52); ALKALINE PHOSPHATASE 85 U/L (38-126); ANION GAP 10 (5-19); ASPARTATE AMINO TRANSFERASE 27 U/L (14-36); BILIRUBIN,DIRECT 0.3 mg/dL (0.0-0.4); BILIRUBIN,TOTAL 0.4 mg/dL (0.2-1.3); BLOOD UREA NITROGEN 31 mg/dL (7-20); CARBON DIOXIDE 24 mmol/L (22-30); CHLORIDE 111 mmol/L (98-107); GLUCOSE 89 mg/dL (75-110); POTASSIUM 4.4 mmol/L (3.6-5.0); SODIUM 144.5 mmol/L (137-145); TOTAL PROTEIN 6.4 g/dL (6.3-8.2)
[2018-02-25] MEDS ORDERED: LEVOFLOXACIN 500 MG/D5W RTU 500 MG/100 ML RTUPB IV SCH (10:00)
[2018-02-25] MEDS ORDERED: (PENDING PHARMACY ID) (Acetylcysteine [Nac 600 Mg Capsule] 600 MG) PO SCH (10:00)
[2018-02-25] MEDS ORDERED: (PENDING PHARMACY ID) (Umeclidinium Brm/Vilanterol Tr [Anoro Ellipta 62.5-25 Mcg Inh] 1 PU IH SCH (10:00)
[2018-02-25 10:33] LABS: CREATINE KINASE MB 3.51 ng/mL (<4.55); TROPONIN I 0.021 ng/mL
[2018-02-25] MEDS: CHOLECALCIFEROL (D3) 1,000 UNIT TABLET PO SCH (11:18)
[2018-02-25] MEDS: DILTIAZEM HCL 120 MG CAP.SR.24H PO SCH (11:18)
[2018-02-25] MEDS: VALSARTAN 80 MG TABLET PO SCH (11:19)
--- NOTE | 2018-02-25 13:08 | PDOC PROGRESS REPORT ---
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 Kennedy as outpatients pulmonary Reason For Visit: RIGHT LOBAR PNEUMONIA Physical Exam Vital Signs: Temp Pulse Resp BP Pulse Ox 102.2 F H 108 H 22 H 107/78 96 02/25/18 11:35 02/25/18 11:35 02/25/18 11:35 02/25/18 11:35 02/25/18 11:35 Intake & Output 02/24/18 02/25/18 02/26/18 06:59 06:59 06:59 Intake Total 1900 Output Total 150 Balance 1750 Weight 65 kg General appearance: PRESENT: no acute distress, well-developed, well-nourished Head exam: PRESENT: atraumatic, normocephalic Eye exam: PRESENT: conjunctiva pink, EOMI, PERRLA. ABSENT: scleral icterus Ear exam: PRESENT: normal external ear exam Mouth exam: PRESENT: moist, tongue midline Neck exam: PRESENT: full ROM. ABSENT: carotid bruit, JVD, lymphadenopathy, thyromegaly Respiratory exam: PRESENT: clear to auscultation stephanie Cardiovascular exam: PRESENT: RRR. ABSENT: diastolic murmur, rubs, systolic murmur Pulses: PRESENT: normal dorsalis pedis pul, +2 pedal pulses bilateral Vascular exam: PRESENT: normal capillary refill GI/Abdominal exam: PRESENT: normal bowel sounds, soft. ABSENT: distended, guarding, mass, organolmegaly, rebound, tenderness Rectal exam: PRESENT: deferred Neurological exam: PRESENT: alert, awake, oriented to person, oriented to place , oriented to time, oriented to situation, CN II-XII grossly intact. ABSENT: motor sensory deficit Psychiatric exam: PRESENT: appropriate affect, normal mood. ABSENT: homicidal ideation, suicidal ideation Skin exam: PRESENT: dry, intact, warm. ABSENT: cyanosis, rash Results Laboratory Results: 02/25/18 06:30 02/25/18 07:23 02/24/18 02/25/18 02/25/18 15:28 06:30 06:30 WBC 16.1 H RBC 3.77 Hgb 11.4 L D Hct 34.8 L MCV 92 MCH 30.3 MCHC 32.8 RDW 14.0 Plt Count 177 Seg Neutrophils % 85.3 H Lymphocytes % 6.7 L Monocytes % 7.1 Eosinophils % 0.6 Basophils % 0.3 Absolute Neutrophils 13.8 H Absolute Lymphocytes 1.1 Absolute Monocytes 1.1 Absolute Eosinophils 0.1 Absolute Basophils 0.1 Sodium Cancelled Potassium Cancelled Chloride Cancelled Carbon Dioxide Cancelled Anion Gap Cancelled BUN Cancelled Creatinine Cancelled Est GFR ( Amer) Cancelled Est GFR (Non-Af Amer) Cancelled Glucose Cancelled Lactic Acid 2.7 H Calcium Cancelled Total Bilirubin Cancelled AST Cancelled ALT Cancelled Alkaline Phosphatase Cancelled Total Protein Cancelled Albumin Cancelled 02/25/18 07:23 WBC RBC Hgb Hct MCV MCH MCHC RDW Plt Count Seg Neutrophils % Lymphocytes % Monocytes % Eosinophils % Basophils % Absolute Neutrophils Absolute Lymphocytes Absolute Monocytes Absolute Eosinophils Absolute Basophils Sodium 144.5 Potassium 4.4 Chloride 111 H Carbon Dioxide 24 Anion Gap 10 BUN 31 H Creatinine 1.40 H Est GFR ( Amer) 44 L Est GFR (Non-Af Amer) 36 L Glucose 89 Lactic Acid Calcium 9.0 Total Bilirubin 0.4 AST 27 ALT 20 Alkaline Phosphatase 85 Total Protein 6.4 Albumin 3.0 L 02/25/18 02/25/18 09:23 09:23 Creatine Kinase 297 H CK-MB (CK-2) 3.51 Troponin I 0.021 Impressions: Chest X-Ray 02/24/18 09:23 IMPRESSION: Increasing airspace opacities in the right lung base. This could be consistent with pneumonia in the correct clinical setting. Differential diagnosis includes early pulmonary edema. Assessment & Plan - Diagnosis (1) Right lower lobe pneumonia Qualifiers: Pneumonia type: due to unspecified organism Qualified Code(s): J18.1 - Lobar pneumonia, unspecified organism Is this a current diagnosis for this admission?: Yes Plan: Continues IV antibiotic We consult the pulmonary with the patient on a chronic bronchiectasis and COPD (2) Chronic atrial fibrillation Is this a current diagnosis for this admission?: Yes Plan: Continues on the Xarelto (3) History of pulmonary embolism Is this a current diagnosis for this admission?: Yes Plan: Patient had a lifelong Xarelto (4) COPD exacerbation Is this a current diagnosis for this admission?: Yes Plan: Continues to nebulizer treatments Denies some mild pleuritic chest pains will get the CT of the chest (5) HTN (hypertension) Qualifiers: Hypertension type: essential hypertension Qualified Code(s): I10 - Essential (primary) hypertension Is this a current diagnosis for this admission?: Yes Plan: Continues to current medications (6) Hypothyroidism Qualifiers: Hypothyroidism type: unspecified Qualified Code(s): E03.9 - Hypothyroidism , unspecified Is this a current diagnosis for this admission?: Yes Plan: Check a TSH (7) Chronic bronchiectasis not affecting current episode of care Is this a current diagnosis for this admission?: Yes Plan: Continues to nebulizer treatments - Time Time Spent with patient: 15-24 minutes Medications reviewed and adjusted accordingly: Yes Anticipated discharge: Other Within: Other - Inpatient Certification Medical Necessity: Need Close Monitoring Due to Risk of Patient Decompensation, Need for IV Antibiotics 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
[2018-02-25] MEDS: ACETAMINOPHEN 325 MG TABLET PO PRN (14:17)
[2018-02-25] MEDS ORDERED: DILTIAZEM HCL INJ 25 MG/5 ML VIAL ONE (14:42)
[2018-02-25] MEDS ORDERED: DIGOXIN INJ 0.5 MG/2 ML AMPULE ONE (14:42)
[2018-02-25] MEDS ORDERED: DIGOXIN 0.25 MG TABLET PO ONE (15:00)
[2018-02-25 16:40] LABS: CREATINE KINASE MB 1.97 ng/mL (<4.55)
[2018-02-25] MEDS: DILTIAZEM HCL/D5W 125 MG/125 ML RTUINJ IV PRN (16:50)
[2018-02-25 16:53] LABS: TROPONIN I 0.038 ng/mL
[2018-02-25] MEDS: RIVAROXABAN 10 MG TABLET PO SCH (18:10)
[2018-02-25] MEDS: NORMAL SALINE 1000 ML 1,000 ML IV PRN (18:16)
--- NOTE | 2018-02-25 20:29 | PDOC CONSULTATION ---
Consultation Consult Date: 02/25/18 Attending physician:: KAYLA MAXWELL Consult reason:: Atrial fibrillation History of Present Illness Admission Date/PCP: 02/24/18 12:26 KAYLA MAXWELL MD Patient complains of: Shortness of breath History of Present Illness: SAADIA HORNER is a 82 year old female patient of Dr Kayla Mxawell who presented to the ED with worsening difficulty with breathing and associated productive cough.There is associated chills, abdominal pain and vomiting prior to presentation to the ED. Her initial evaluation did revealed leukocytosis with air space disease process in the right lower lung zone, elevated renal indices suggestive of acute injury and marginal elevation of her D-Dimmer. Patient has history of COPD. 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 She was advised hospitalization for further evaluation and management. Patient was admitted with pneumonia however during hospitalization she was noted to go back into atrial fibrillation with rapid ventricular response with some worsening shortness of breath. Patient denies any chest pain. I was asked to evaluate patient because of atrial fibrillation. Past Medical History Cardiac Medical History: Reports: Atrial Fibrillation, DVT, Myocardial Infarction, Hypertension, Pulmonary Embolism Pulmonary Medical History: Reports: Bronchitis, Chronic Obstructive Pulmonary Disease (COPD), Pneumonia Denies: Tuberculosis Endocrine Medical History: Reports: Hypothyroidism Denies: Diabetes Mellitus Type 1 GI Medical History: Reports: Gastroesophageal Reflux Disease Musculoskeltal Medical History: Reports: Arthritis Psychiatric Medical History: Denies: Depression Past Surgical History Past Surgical History: Reports: Appendectomy, Cholecystectomy Social History Information Source: Patient Lives with: Family Smoking Status: Never Smoker Frequency of Alcohol Use: None Hx Recreational Drug Use: No Drugs: None Hx Prescription Drug Abuse: No - Advance Directive Resuscitation Status: Full Code Surrogate healthcare decision maker:: Julio Escobedo, phone #[phone] Family History Family History: Reviewed & Not Pertinent, Other Parental Family History Reviewed: Yes - Noted to be noncontributory Children Family History Reviewed: Yes Sibling(s) Family History Reviewed.: Yes Medication/Allergy Home Medications: Levothyroxine Sodium 75 mcg PO QPM 06/19/11 Metoprolol Succinate [Toprol Xl 50 mg Tab.sr] 75 mg PO DAILY 06/19/11 Rivaroxaban [Xarelto] 20 mg PO DAILY 08/05/13 Diltiazem HCl [Cardizem Cd 120 mg Capsule] 120 mg PO DAILY 10/07/13 Diazepam [Valium 5 mg Tablet] 5 mg PO DAILYP PRN 05/21/14 Acetaminophen [Tylenol Arthritis 650 mg Tablet] 650 mg PO Q12HP PRN 02/24/18 Acetylcysteine [Nac] 600 mg PO DAILY 02/24/18 Albuterol Sulfate [Ventolin Hfa] 1 puff IH DAILYP PRN 02/24/18 Alendronate Sodium [Fosamax] 70 mg PO Q7D 02/24/18 Cetirizine HCl [Zyrtec 10 mg Tablet] 10 mg PO DAILYP PRN 02/24/18 Cholecalciferol (Vitamin D3) [Vitamin D3 1000 Unit Tablet] 1,000 unit PO DAILY 02/24/18 Docusate Sodium [Colace 100 mg Capsule] 100 mg PO DAILYP PRN 02/24/18 Esomeprazole Magnesium [Nexium] 40 mg PO DAILY 02/24/18 Umeclidinium Brm/Vilanterol Tr [Anoro Ellipta 62.5-25 Mcg INH] 1 puff IH DAILY 02/24/18 Valsartan [Diovan 80 mg Tablet] 80 mg PO DAILY 02/24/18 Allergies/Adverse Reactions: ampicillin [Ampicillin] Allergy (Verified 02/24/18 17:00) codeine [Codeine] Allergy (Verified 02/24/18 17:00) Sulfa (Sulfonamide Antibiotics) Allergy (Verified 02/24/18 17:00) Review of Systems Review of Systems: Please see history of present illness and past medical history as wall. Constitutional: Mild grade fever or chills reported. Head : No recent chronic headaches, recent head injury. Eyes: No recent eye pain, diplopia, redness, discharge, acute visual changes. Ears: No recent chronic ear pain, acute hearing loss, ear discharge. Oral cavity: No recent ulcerations, bleeding, oral cavity discomfort. Neck: No recent acute neck pain reported. Hematologic: No recent easy bruising or bleeding. History of pulmonary embolism reported. Lymphatic: No recent lymph node enlargement reported. Cardiovascular system review: See history of present illness. Respiratory system review: No hemoptysis or blood clots in the lungs reported. Shortness of breath on exertion Gastrointestinal system review: Negative for any recent acute hematemesis, melena. History of reflux reported. Genitourinary system review: No recent acute or chronic hematuria, flank pain, UTI etc. reported. Skin system review: Negative for any recent abnormal bruising, no rash, no pruritus reported. Neurologic: No prior history of strokes, mini strokes, seizure disorder. Psychologic: No history of major psychosis or major depression reported. Musculoskeletal: Minor aches and pains reported. No acute joint swelling reported. Endocrine: No recent polyuria, polydipsia, recent heat or cold intolerance. Physical Exam Vital Signs: Temp Pulse Resp BP Pulse Ox 100.3 F 90 20 116/63 94 02/25/18 20:00 02/25/18 20:15 02/25/18 20:00 02/25/18 20:15 02/25/18 16:04 Intake & Output 02/24/18 02/25/18 02/26/18 06:59 06:59 06:59 Intake Total 1900 2216 Output Total 150 Balance 1750 2216 Weight 65 kg 65 kg Exam: GENERAL: well-nourished and in no acute distress. Alert and oriented x3 HEAD: Atraumatic, normocephalic. EYES: Pupils equal round and reactive to light, extraocular movements intact, sclera anicteric, conjunctiva are normal. ENT: TMs normal, nares patent, oropharynx clear without exudates. Moist mucous membranes. No oral ulcerations or bleeding gums noted NECK: supple without lymphadenopathy. Trachea is central. No cervical or axillary lymphadenopathy noted. Carotids are 2+, JVD WNL LUNGS: Respiration seems nonlabored, no significant accessory muscle action noted. Bilateral coarse crackles are noted.. No wheezes rales or rhonchi noted. No significant dullness noted on percussion. CHEST: Palpation of the chest wall shows no significant chest wall tenderness. 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 ABDOMEN: Soft, no significant tenderness appreciated, normoactive bowel sounds. No guarding, no rebound. No rigidity noted . No masses appreciated. EXTREMITIES: Pedal pulses are 1-2+, no calf tenderness noted. No clubbing or cyanosis. Trace to 1+ pedal edema noted NEUROLOGICAL: Focused neurological exam showed no significant neurologic deficit. Normal speech, no focal weakness appreciated. PSYCH: Normal mood, normal affect. Judgment and insight within normal limits. SKIN: No significant ecchymosis, skin is noted to be warm. MUSCULOSKELETAL EXAM: No significant acute joint swelling noted. Results Laboratory Results: 02/25/18 06:30 02/25/18 07:23 02/25/18 02/25/18 02/25/18 06:30 06:30 07:23 WBC 16.1 H RBC 3.77 Hgb 11.4 L D Hct 34.8 L MCV 92 MCH 30.3 MCHC 32.8 RDW 14.0 Plt Count 177 Seg Neutrophils % 85.3 H Lymphocytes % 6.7 L Monocytes % 7.1 Eosinophils % 0.6 Basophils % 0.3 Absolute Neutrophils 13.8 H Absolute Lymphocytes 1.1 Absolute Monocytes 1.1 Absolute Eosinophils 0.1 Absolute Basophils 0.1 Sodium Cancelled 144.5 Potassium Cancelled 4.4 Chloride Cancelled 111 H Carbon Dioxide Cancelled 24 Anion Gap Cancelled 10 BUN Cancelled 31 H Creatinine Cancelled 1.40 H Est GFR ( Amer) Cancelled 44 L Est GFR (Non-Af Amer) Cancelled 36 L Glucose Cancelled 89 Calcium Cancelled 9.0 Total Bilirubin Cancelled 0.4 AST Cancelled 27 ALT Cancelled 20 Alkaline Phosphatase Cancelled 85 Total Protein Cancelled 6.4 Albumin Cancelled 3.0 L 02/25/18 02/25/18 02/25/18 09:23 09:23 15:40 Creatine Kinase 297 H 70 CK-MB (CK-2) 3.51 Troponin I 0.021 02/25/18 15:40 Creatine Kinase CK-MB (CK-2) 1.97 Troponin I 0.038 EKG Comments: Initial EKG shows multifocal atrial tachycardia but cannot rule out atrial fibrillation with RVR. Subsequent EKG shows SVT Impressions: Chest X-Ray 02/24/18 09:23 IMPRESSION: Increasing airspace opacities in the right lung base. This could be consistent with pneumonia in the correct clinical setting. Differential diagnosis includes early pulmonary edema. Assessment & Plan - Diagnosis (1) Atrial fibrillation with rapid ventricular response Is this a current diagnosis for this admission?: Yes (2) History of pulmonary embolism Is this a current diagnosis for this admission?: Yes (3) Right lower lobe pneumonia Qualifiers: Pneumonia type: due to unspecified organism Qualified Code(s): J18.1 - Lobar pneumonia, unspecified organism Is this a current diagnosis for this admission?: Yes (4) COPD exacerbation Is this a current diagnosis for this admission?: Yes (5) HTN (hypertension) Qualifiers: Hypertension type: essential hypertension Qualified Code(s): I10 - Essential (primary) hypertension Is this a current diagnosis for this admission?: Yes - Notes Notes: Atrial fibrillation with rapid ventricular response: Recommend IV Cardizem bolus and drip protocol for atrial fibrillation with rapid ventricular response. Agree with digoxin. Will recommend obtaining a 2D echo if this has not been obtained recently. Continue concomitant management of pneumonia. Will discuss anticoagulation issue with primary care attending. History of pulmonary embolism: Patient currently on chronic anticoagulation. Right lower lobe pneumonia: Continue antibiotic therapy. COPD: Continue bronchodilator therapy, steroid therapy as needed for COPD exacerbation. Hypertension: Recommend liberal control for this patient at her age. - Time Time Spent: 30 to 50 Minutes Medications reviewed and adjusted accordingly: Yes
[2018-02-25] MEDS: LEVALBUTEROL HCL NEB 1.25 MG/3 ML AMPUL NEB SCH (21:14)
[2018-02-25 21:48] LABS: CREATINE KINASE MB 1.93 ng/mL (<4.55); TROPONIN I 0.043 ng/mL
--- NOTE | 2018-02-25 22:04 | EKG REPORT ---
SEVERITY:- ABNORMAL ECG - SUPRAVENTRICULAR TACHYCARDIA RIGHT AXIS DEVIATION INFERIOR INFARCT, AGE INDETERMINATE : Confirmed by: Tita Francis MD 25-Feb-2018 22:03:48
[2018-02-25 22:30] LABS: ABSOLUTE EOSINOPHILS # (AUTO) 0.1 10^3/uL (0.0-0.6); ABSOLUTE LYMPHOCYTES (AUTO) 1.2 10^3/uL (0.5-4.7); ABSOLUTE MONOCYTES (AUTO) 1.4 10^3/uL (0.1-1.4); ABSOLUTE NEUT (AUTO) 15.3 10^3/uL (1.7-8.2); BASOPHILS % (AUTO) 0.2 % (0-2); EOSINOPHILS % (AUTO) 0.7 % (0-6); HEMATOCRIT 34.8 % (36.0-47.0); HEMOGLOBIN 11.5 g/dL (12.0-15.5); LYMPHOCYTES % (AUTO) 6.8 % (13-45); MEAN CORPUSCULAR HEMOGLOBIN 30.6 pg (27.0-33.4); MEAN CORPUSCULAR VOLUME 93 fl (80-97); MONOCYTES % (AUTO) 7.6 % (3-13); PLATELET COUNT 206 10^3/uL (150-450); RED BLOOD COUNT 3.76 10^6/uL (3.72-5.28); RED CELL DISTRIBUTION WIDTH 14.2 % (11.5-14.0); SEGMENTED NEUTROPHILS % (AUTO) 84.7 % (42-78); TOTAL CELLS COUNTED % (AUTO) 100 %
[2018-02-25] MEDS ORDERED: IMIPENEM/CILASTATIN SODIUM INJ 500 MG VIAL IV PRN (23:04)
[2018-02-25] MEDS ORDERED: IMIPENEM/CILASTATIN SODIUM INJ 500 MG VIAL IV ONE (23:08)
[2018-02-25] MEDS: DIPHENHYDRAMINE HCL 25 MG CAPSULE PO SCH (23:42)
[2018-02-26] MEDS: IMIPENEM/CILASTATIN SODIUM INJ 500 MG VIAL IV SCH ×2 (00:44→06:42)
[2018-02-26] MEDS: ACETAMINOPHEN 325 MG TABLET PO PRN ×2 (00:56→17:49)
[2018-02-26] MEDS: LEVALBUTEROL HCL NEB 1.25 MG/3 ML AMPUL NEB SCH ×4 (02:18→20:37)
[2018-02-26] MEDS: DILTIAZEM HCL/D5W 125 MG/125 ML RTUINJ IV PRN (03:48)
[2018-02-26] MEDS ORDERED: IMIPENEM/CILASTATIN SODIUM INJ 500 MG VIAL IV ONE (05:21)
[2018-02-26] MEDS: DIPHENHYDRAMINE HCL 25 MG CAPSULE PO SCH ×4 (05:21→23:10)
[2018-02-26] MEDS: LANSOPRAZOLE 30 MG TAB.RAP.DR PO SCH (05:25)
[2018-02-26 06:06] LABS: HEMATOCRIT 36.6 % (36.0-47.0); HEMOGLOBIN 12.2 g/dL (12.0-15.5); MEAN CORPUSCULAR HEMOGLOBIN 30.8 pg (27.0-33.4); MEAN CORPUSCULAR HGB CONC 33.2 g/dL (32.0-36.0); MEAN CORPUSCULAR VOLUME 93 fl (80-97); RED BLOOD COUNT 3.94 10^6/uL (3.72-5.28); RED CELL DISTRIBUTION WIDTH 14.3 % (11.5-14.0); WHITE BLOOD COUNT 15.7 10^3/uL (4.0-10.5)
[2018-02-26 06:08] LABS: ANION GAP 9 (5-19); BLOOD UREA NITROGEN 21 mg/dL (7-20); CALCIUM 8.4 mg/dL (8.4-10.2); CARBON DIOXIDE 18 mmol/L (22-30); CHLORIDE 117 mmol/L (98-107); GLUCOSE 94 mg/dL (75-110)
[2018-02-26 07:04] LABS: ABSOLUTE LYMPHOCYTES# (MANUAL) 0.6 10^3/uL (0.5-4.7); ABSOLUTE MONOCYTES # (MANUAL) 0.5 10^3/uL (0.1-1.4); ABSOLUTE NEUTROPHILS# (MANUAL) 14.4 10^3/uL (1.7-8.2); BASOPHILS % (MANUAL) 0 % (0-2); EOSINOPHILS % (MANUAL) 1 % (0-6); LYMPHOCYTES % (MANUAL) 4 % (13-45); MONOCYTES % (MANUAL) 3 % (3-13); SEGMENTED NEUTROPHILS % (MAN) 92 % (42-78); TOTAL CELLS COUNTED 100
[2018-02-26 07:07] LABS: PLATELET CLUMPS PRESENT; POLYCHROMASIA SLIGHT; TOXIC GRANULATION 1+
[2018-02-26 07:08] LABS: PLATELET COUNT 177 10^3/uL (150-450)
[2018-02-26] MEDS: NORMAL SALINE 1000 ML 1,000 ML IV PRN (08:25)
--- NOTE | 2018-02-26 09:30 | PDOC PROGRESS REPORT ---
Subjective Progress Note for:: 02/26/18 Subjective:: Patient is currently doing same but currently denied any chest pain denied any shortness of the breath still coughing with the green sputum Patient's currently on IV imipenem and Levaquin Since currently on a Cardizem drip Reason For Visit: RIGHT LOBAR PNEUMONIA Physical Exam Vital Signs: Temp Pulse Resp BP Pulse Ox 98.9 F 82 22 H 108/64 97 02/26/18 07:23 02/26/18 08:20 02/26/18 07:23 02/26/18 08:20 02/26/18 07:23 Intake & Output 02/25/18 02/26/18 02/27/18 06:59 06:59 06:59 Intake Total 1900 2581 1000 Output Total 150 0 Balance 1750 2581 1000 Weight 65 kg 72.1 kg General appearance: PRESENT: no acute distress, well-developed, well-nourished Head exam: PRESENT: atraumatic, normocephalic Eye exam: PRESENT: conjunctiva pink, EOMI, PERRLA. ABSENT: scleral icterus Ear exam: PRESENT: normal external ear exam Mouth exam: PRESENT: moist, tongue midline Neck exam: PRESENT: full ROM. ABSENT: carotid bruit, JVD, lymphadenopathy, thyromegaly Respiratory exam: PRESENT: clear to auscultation stephanie Cardiovascular exam: PRESENT: irregular rhythm. ABSENT: diastolic murmur, rubs , systolic murmur Pulses: PRESENT: normal dorsalis pedis pul, +2 pedal pulses bilateral Vascular exam: PRESENT: normal capillary refill GI/Abdominal exam: PRESENT: normal bowel sounds, soft. ABSENT: distended, guarding, mass, organolmegaly, rebound, tenderness Rectal exam: PRESENT: deferred Neurological exam: PRESENT: alert, awake, oriented to person, oriented to place , oriented to time, oriented to situation, CN II-XII grossly intact. ABSENT: motor sensory deficit Psychiatric exam: PRESENT: appropriate affect, normal mood. ABSENT: homicidal ideation, suicidal ideation Skin exam: PRESENT: dry, intact, warm. ABSENT: cyanosis, rash Results Laboratory Results: 02/26/18 05:35 02/26/18 05:35 02/25/18 02/26/18 02/26/18 22:19 05:35 05:35 WBC 18.0 H 15.7 H RBC 3.76 3.94 Hgb 11.5 L 12.2 Hct 34.8 L 36.6 MCV 93 93 MCH 30.6 30.8 MCHC 33.0 33.2 RDW 14.2 H 14.3 H Plt Count 206 177 Seg Neutrophils % 84.7 H Not Reportable Lymphocytes % 6.8 L Not Reportable Monocytes % 7.6 Not Reportable Eosinophils % 0.7 Not Reportable Basophils % 0.2 Not Reportable Absolute Neutrophils 15.3 H Not Reportable Absolute Lymphocytes 1.2 Not Reportable Absolute Monocytes 1.4 Not Reportable Absolute Eosinophils 0.1 Not Reportable Absolute Basophils 0.0 Not Reportable Sodium 144.0 Potassium 4.0 Chloride 117 H Carbon Dioxide 18 L Anion Gap 9 BUN 21 H Creatinine 1.09 Est GFR ( Amer) 58 L Est GFR (Non-Af Amer) 48 L Glucose 94 Calcium 8.4 02/25/18 02/25/18 02/25/18 09:23 09:23 15:40 Creatine Kinase 297 H 70 CK-MB (CK-2) 3.51 Troponin I 0.021 02/25/18 02/25/18 02/25/18 15:40 21:08 21:08 Creatine Kinase 60 CK-MB (CK-2) 1.97 1.93 Troponin I 0.038 0.043 Impressions: Chest X-Ray 02/24/18 09:23 IMPRESSION: Increasing airspace opacities in the right lung base. This could be consistent with pneumonia in the correct clinical setting. Differential diagnosis includes early pulmonary edema. Assessment & Plan - Diagnosis (1) Right lower lobe pneumonia Qualifiers: Pneumonia type: due to unspecified organism Qualified Code(s): J18.1 - Lobar pneumonia, unspecified organism Is this a current diagnosis for this admission?: Yes Plan: Continues IV antibiotic (2) Chronic atrial fibrillation Is this a current diagnosis for this admission?: Yes Plan: Continues to Xarelto Cardizem drip slowly wean off and adjust the Cardizem p.o. (3) History of pulmonary embolism Is this a current diagnosis for this admission?: Yes Plan: Patient had a lifelong Xarelto (4) COPD exacerbation Is this a current diagnosis for this admission?: Yes Plan: Continues to nebulizer treatments Denies some mild pleuritic chest pains will get the CT of the chest (5) HTN (hypertension) Qualifiers: Hypertension type: essential hypertension Qualified Code(s): I10 - Essential (primary) hypertension Is this a current diagnosis for this admission?: Yes Plan: Continues to current medications (6) Hypothyroidism Qualifiers: Hypothyroidism type: unspecified Qualified Code(s): E03.9 - Hypothyroidism , unspecified Is this a current diagnosis for this admission?: Yes Plan: Check a TSH (7) Chronic bronchiectasis not affecting current episode of care Is this a current diagnosis for this admission?: Yes Plan: Continues to nebulizer treatments - Time Time Spent with patient: 15-24 minutes Medications reviewed and adjusted accordingly: Yes Anticipated discharge: Home Within: Other - Inpatient Certification Medical Necessity: Need Close Monitoring Due to Risk of Patient Decompensation, Need for IV Antibiotics Post Hospital Care: D/C Supervisor Special Education Documentation - Plan Summary Plan Summary: Continues IV antibiotic
[2018-02-26] MEDS: DILTIAZEM HCL 120 MG CAP.SR.24H PO SCH ×2 (10:16→17:44)
[2018-02-26] MEDS: CHOLECALCIFEROL (D3) 1,000 UNIT TABLET PO SCH (10:16)
[2018-02-26] MEDS: VALSARTAN 80 MG TABLET PO SCH (10:17)
--- NOTE | 2018-02-26 12:41 | CONSULTATION REPORT E ---
Consultation Report NAME: SAADIA HORNER : 1935 AGE: 82Y DATE: 02/25/2018 334 A TO: INES HEBERT M.D. FROM: RALPH PADILLA M.D. Requesting Physician SUBJECTIVE: The patient is an 82-year-old female who came in with increased shortness of breath, coughing yellow/green phlegm, fever and chills. The patient was admitted yesterday because of severe dyspnea. The patient was started on IV Levaquin. The patient was spiking temperature to 102.2, decreased this morning at 11:35. The patient claims that she never had asthma and she doesn't smoke. She smoked about 1 pack a day for a very short period of time. PAST MEDICAL HISTORY: 1. History of atrial fibrillation. 2. Deep venous thrombosis. 3. Myocardial infarction. 4. Hypertension. 5. Pulmonary embolism. 6. History of chronic obstructive pulmonary disease. 7. Hypothyroidism. 8. Gastroesophageal reflux disease. 9. Arthritis. PAST SURGICAL HISTORY: 1. Appendectomy. 2. Cholecystectomy. SOCIAL HISTORY: Lives with family. Smoked for a few months 1 pack a day. Denies any alcohol abuse or illicit drug use. REVIEW OF SYSTEMS: CONSTITUTIONAL: Had fever and chills. Was ill at home a few days prior to admission. EYES: No jaundice or pallor. EARS, NOSE, THROAT: No ear drainage. No nasal discharge. CHEST AND LUNGS: No wheezing, no rhonchi. No coarse crackles. Fine rales bibasilar. CARDIOVASCULAR: S1, S2 distinct. No murmur. ABDOMEN: Flabby. Positive bowel sounds. Soft, nondistended, nontender. EXTREMITIES: No joint swelling or cellulitis. PHYSICAL EXAMINATION: GENERAL: Awake, coherent. Oriented, in respiratory distress. VITAL SIGNS: Temperature 100.3 degrees Fahrenheit, T-max 102.2. Heart rate 88, blood pressure 121/75. Breathing about 24-26. Saturation 94% on 2 liters nasal cannula. EYES: No jaundice or pallor. EARS, NOSE, THROAT: No ear drainage and no nasal discharge. CHEST AND LUNGS: No wheezing, no rhonchi. No coarse crackles. Fine rales bibasilar. CARDIAC: S1, S2 distant. No murmurs. ABDOMEN: Flabby. Active bowel sounds. Soft, nondistended. EXTREMITIES: No joint swelling, no cellulitis. LABORATORY: CBC done today shows white count 15.1, down from 19.6 yesterday. Hemoglobin 11.4, hematocrit 34.8, platelets 85.3. Chemistry done today shows sodium 124, potassium 4.4, chloride 111, CO2 of 24, BUN 31, creatinine 1.4, glucose 89. Creatinine clearance was 31 based on her age, serum creatinine, and weight. Glucose 89. Calcium 9. Creatine kinase 297. Chest x-ray showed infiltrates bilaterally, more on the right side and moving to right lung base and right upper lobe. Infiltrate noted yesterday on the chest x-ray, was seen on chest x-ray on December 25. ASSESSMENT: 1. PNEUMONIA, MULTIPLE RIGHT SIDE. 2. HISTORY OF PULMONARY . 3. HISTORY OF ATRIAL FIBRILLATION AND DEEP VENOUS THROMBOSIS. Question mild chronic obstructive pulmonary disease. PLAN/RECOMMENDATIONS: Continue on Levaquin 750 mg . I am uncertain that Levaquin . The patient came in yesterday morning, 02/24/2018, and was started on IV Levaquin. However, the patient seemed to be tachypneic and . The patient may require a broader spectrum intravenous antibiotic coverage. Will hold intravenous vancomycin. I do not think the patient has Methicillin resistant staphylococcus aureus, but it is not impossible. Will start the patient on intravenous Primaxin 250 mg IV, every 6 hours. Will continue the intravenous Levaquin. Will repeat the sputum culture. DICTATING PHYSICIAN: INES HEBERT M.D. [id number] PHY#: [id number] ID: [id number] JOB#: [id number] ACCT: [id number] cc:INES HEBERT M.D. >
[2018-02-26] MEDS: IMIPENEM/CILASTATIN SODIUM 250 MG in NORMAL SALINE 100 ML IV SCH ×2 (13:00→18:36)
--- NOTE | 2018-02-26 16:01 | RADIOLOGY REPORT (SQ) ---
EXAM DESCRIPTION: CT CHEST WITHOUT COMPLETED DATE/TIME: 02/26/2018 3:43 pm REASON FOR STUDY: SOB COMPARISON: 12/25/2017 TECHNIQUE: CT scan performed of the chest without intravenous contrast. Images reviewed with lung, soft tissue and bone windows. Reconstructed coronal and sagittal MPR images reviewed. All images st ored on PACS. All CT scanners at this facility use dose modulation, iterative reconstruction, and/or weight based d osing when appropriate to reduce radiation dose to as low as reasonably achievable (ALARA). [facility]: Dose Right [facility]: CareDose [facility]: Dose Right [facility]: Teradose 4D [facility]: [employer] RADIATION DOSE: CT Rad equipment meets quality standard of care and radiation dose reduction techniq ues were employed. CTDIvol: 15.0 mGy. DLP: 538 mGy-cm. mGy. LIMITATIONS: Motion. Positioning. FINDINGS: LUNGS AND PLEURA: Small right pleural effusion. Diffuse patchy airspace disease in with m ore focal consolidation in the right lower lobe. Pleural-based nodular density anterior cardiophreni c angle measuring about 2.4 cm. This may be due to infection versus underlying nodule. Stable areas of bronchiectasis in the middle lobe. HILAR AND MEDIASTINAL STRUCTURES: Enlarged mediastinal and hilar nodes. Largest node is subcarinal 2 .5 x 3.5 cm. HEART AND VASCULAR STRUCTURES: No aneurysm. No pericardial effusion. UPPER ABDOMEN: No significant findings. Limited exam. THYROID AND OTHER SOFT TISSUES: Small cardiophrenic nodes measuring up to about 1 cm. BONES: No acute findings. HARDWARE: None in the chest. OTHER: No other significant findings. IMPRESSION: Multifocal pneumonia with more focal consolidation in the right lower lobe. Questionabl e pulmonary nodule in the left upper lobe. Mediastinal adenopathy. Clinical correlation and follow- up is recommended. TECHNICAL DOCUMENTATION: JOB ID: [id number] Quality ID # [id number]: Final reports with documentation of one or more dose reduction techniques (e.g., Au tomated exposure control, adjustment of the mA and/or kV according to patient size, use of iterative reconstruction technique) 2010 [employer]- All Rights Reserved Reading location - IP/workstation name: [email or web address]
[2018-02-26] MEDS: RIVAROXABAN 10 MG TABLET PO SCH (17:44)
--- NOTE | 2018-02-26 19:22 | PDOC PROGRESS REPORT ---
Subjective Progress Note for:: 02/26/18 Subjective:: Patient seems to be doing better with gradual improvement. Pt is denying any chest arm or neck discomfort. Patient denying any PND, orthopnea. Patient denied any sustained palpitations, dizziness, syncope, near syncope. Patient denying any fever chills. Patient denying any other significant discomfort. Review of systems: Rest review of systems negative. Medications: Medications have been reviewed. Reason For Visit: RIGHT LOBAR PNEUMONIA Physical Exam Vital Signs: Temp Pulse Resp BP Pulse Ox 99.2 F 118 H 22 H 125/72 96 02/26/18 15:11 02/26/18 15:11 02/26/18 15:11 02/26/18 15:11 02/26/18 15:11 Intake & Output 02/25/18 02/26/18 02/27/18 06:59 06:59 06:59 Intake Total 1900 2581 3066 Output Total 150 0 Balance 1750 2581 3066 Weight 65 kg 72.1 kg Exam: GENERAL: well-nourished and in no acute distress. Alert and oriented x3 HEAD: Atraumatic, normocephalic. EYES: Pupils equal round and reactive to light, extraocular movements intact, sclera anicteric, conjunctiva are normal. ENT: TMs normal, nares patent, oropharynx clear without exudates. Moist mucous membranes. No oral ulcerations or bleeding gums noted NECK: supple without lymphadenopathy. Trachea is central. No cervical or axillary lymphadenopathy noted. Carotids are 2+, JVD WNL LUNGS: Respiration seems nonlabored, no significant accessory muscle action noted. Bibasilar coarse crackles and few a scattered wheezes rales or rhonchi noted. No significant dullness noted on percussion. CHEST: Palpation of the chest wall shows no significant chest wall tenderness. 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 ABDOMEN: Soft, no significant tenderness appreciated, normoactive bowel sounds. No guarding, no rebound. No rigidity noted . No masses appreciated. EXTREMITIES: Pedal pulses are 1-2+, no calf tenderness noted. No clubbing or cyanosis. Trace to 1+ pedal edema noted NEUROLOGICAL: Focused neurological exam showed no significant neurologic deficit. Normal speech, no focal weakness appreciated. PSYCH: Normal mood, normal affect. Judgment and insight within normal limits. SKIN: No significant ecchymosis, skin is noted to be warm. MUSCULOSKELETAL EXAM: No significant acute joint swelling noted. Results Laboratory Results: 02/26/18 05:35 02/26/18 05:35 02/25/18 02/26/18 02/26/18 22:19 05:35 05:35 WBC 18.0 H 15.7 H RBC 3.76 3.94 Hgb 11.5 L 12.2 Hct 34.8 L 36.6 MCV 93 93 MCH 30.6 30.8 MCHC 33.0 33.2 RDW 14.2 H 14.3 H Plt Count 206 177 Seg Neutrophils % 84.7 H Not Reportable Lymphocytes % 6.8 L Not Reportable Monocytes % 7.6 Not Reportable Eosinophils % 0.7 Not Reportable Basophils % 0.2 Not Reportable Absolute Neutrophils 15.3 H Not Reportable Absolute Lymphocytes 1.2 Not Reportable Absolute Monocytes 1.4 Not Reportable Absolute Eosinophils 0.1 Not Reportable Absolute Basophils 0.0 Not Reportable Sodium 144.0 Potassium 4.0 Chloride 117 H Carbon Dioxide 18 L Anion Gap 9 BUN 21 H Creatinine 1.09 Est GFR ( Amer) 58 L Est GFR (Non-Af Amer) 48 L Glucose 94 Calcium 8.4 02/25/18 02/25/18 02/25/18 09:23 09:23 15:40 Creatine Kinase 297 H 70 CK-MB (CK-2) 3.51 Troponin I 0.021 02/25/18 02/25/18 02/25/18 15:40 21:08 21:08 Creatine Kinase 60 CK-MB (CK-2) 1.97 1.93 Troponin I 0.038 0.043 Impressions: Chest X-Ray 02/24/18 09:23 IMPRESSION: Increasing airspace opacities in the right lung base. This could be consistent with pneumonia in the correct clinical setting. Differential diagnosis includes early pulmonary edema. Chest CT 02/25/18 00:00 IMPRESSION: Multifocal pneumonia with more focal consolidation in the right lower lobe. Questionable pulmonary nodule in the left upper lobe. Mediastinal adenopathy. Clinical correlation and follow-up is recommended. Assessment & Plan - Diagnosis (1) Atrial fibrillation with rapid ventricular response Is this a current diagnosis for this admission?: Yes (2) History of pulmonary embolism Is this a current diagnosis for this admission?: Yes (3) Right lower lobe pneumonia Qualifiers: Pneumonia type: due to unspecified organism Qualified Code(s): J18.1 - Lobar pneumonia, unspecified organism Is this a current diagnosis for this admission?: Yes (4) COPD exacerbation Is this a current diagnosis for this admission?: Yes (5) HTN (hypertension) Qualifiers: Hypertension type: essential hypertension Qualified Code(s): I10 - Essential (primary) hypertension Is this a current diagnosis for this admission?: Yes - Notes Notes: Patient switch to p.o. Cardizem at 120 p.o. twice daily. Patient however remains in atrial fibrillation. Atrial fibrillation with rapid ventricular response: Currently remains in atrial fibrillation, may be trying to convert to sinus. Agree with digoxin. Will recommend obtaining a 2D echo if this has not been obtained recently. Continue concomitant management of pneumonia. Will discuss anticoagulation issue with primary care attending. History of pulmonary embolism: Patient currently on chronic anticoagulation. Right lower lobe pneumonia: Continue antibiotic therapy. COPD: Continue bronchodilator therapy, steroid therapy as needed for COPD exacerbation. Hypertension: Recommend liberal controlled for this patient at her age. - Time Time with patient: 15-25 minutes - More than 50% of the time spent coordinating care, discussing management plans with involved caregivers. Management plans discussed with involved personnels. Medical decision making was of moderate to high complexity, patient's has multiple comorbidities. Medications reviewed and adjusted accordingly: Yes
[2018-02-27] MEDS: IMIPENEM/CILASTATIN SODIUM 250 MG in NORMAL SALINE 100 ML IV SCH ×3 (00:06→13:37)
[2018-02-27] MEDS: LEVALBUTEROL HCL NEB 1.25 MG/3 ML AMPUL NEB SCH ×4 (01:24→20:06)
[2018-02-27] MEDS: DOCUSATE SODIUM 100 MG CAPSULE PO PRN (02:27)
[2018-02-27] MEDS: NORMAL SALINE 1000 ML 1,000 ML IV PRN ×2 (02:34→23:55)
[2018-02-27] MEDS: DIPHENHYDRAMINE HCL 25 MG CAPSULE PO SCH ×5 (05:08→23:10)
[2018-02-27] MEDS: DILTIAZEM HCL 120 MG CAP.SR.24H PO SCH ×2 (05:08→18:04)
[2018-02-27] MEDS: LANSOPRAZOLE 30 MG TAB.RAP.DR PO SCH (05:09)
[2018-02-27 06:23] LABS: ANION GAP 9 (5-19); BLOOD UREA NITROGEN 17 mg/dL (7-20); CALCIUM 8.6 mg/dL (8.4-10.2); CARBON DIOXIDE 19 mmol/L (22-30); CHLORIDE 118 mmol/L (98-107); GLUCOSE 95 mg/dL (75-110); POTASSIUM 4.5 mmol/L (3.6-5.0); SODIUM 146.1 mmol/L (137-145)
--- NOTE | 2018-02-27 10:32 | PDOC PROGRESS REPORT ---
Subjective Progress Note for:: 02/27/18 Subjective:: Patient is currently doing same but currently denied any chest pain denied any shortness of the breath still coughing with the green sputum Patient's currently on IV imipenem and Levaquin Since currently on a Cardizem drip Reason For Visit: RIGHT LOBAR PNEUMONIA Physical Exam Vital Signs: Temp Pulse Resp BP Pulse Ox 99.6 F 93 16 134/65 H 92 02/27/18 03:41 02/27/18 07:47 02/27/18 07:47 02/27/18 03:41 02/27/18 07:47 Intake & Output 02/26/18 02/27/18 02/28/18 06:59 06:59 06:59 Intake Total 2581 4911 95 Output Total 0 Balance 2581 4911 95 Weight 72.1 kg 70.2 kg General appearance: PRESENT: no acute distress, well-developed, well-nourished Head exam: PRESENT: atraumatic, normocephalic Eye exam: PRESENT: conjunctiva pink, EOMI, PERRLA. ABSENT: scleral icterus Ear exam: PRESENT: normal external ear exam Mouth exam: PRESENT: moist, tongue midline Neck exam: PRESENT: full ROM. ABSENT: carotid bruit, JVD, lymphadenopathy, thyromegaly Respiratory exam: PRESENT: clear to auscultation stephanie Cardiovascular exam: PRESENT: RRR. ABSENT: diastolic murmur, rubs, systolic murmur Pulses: PRESENT: normal dorsalis pedis pul, +2 pedal pulses bilateral Vascular exam: PRESENT: normal capillary refill GI/Abdominal exam: PRESENT: normal bowel sounds, soft. ABSENT: distended, guarding, mass, organolmegaly, rebound, tenderness Rectal exam: PRESENT: deferred Extremities exam: ABSENT: pedal edema Musculoskeletal exam: PRESENT: ambulatory Neurological exam: PRESENT: alert, awake, oriented to person, oriented to place , oriented to time, oriented to situation, CN II-XII grossly intact. ABSENT: motor sensory deficit Psychiatric exam: PRESENT: appropriate affect, normal mood. ABSENT: homicidal ideation, suicidal ideation Skin exam: PRESENT: dry, intact, warm. ABSENT: cyanosis, rash Results Laboratory Results: 02/26/18 05:35 02/27/18 05:19 02/27/18 05:19 Sodium 146.1 H Potassium 4.5 Chloride 118 H Carbon Dioxide 19 L Anion Gap 9 BUN 17 Creatinine 0.90 Est GFR ( Amer) > 60 Est GFR (Non-Af Amer) > 60 Glucose 95 Calcium 8.6 02/25/18 02/25/18 02/25/18 09:23 09:23 15:40 Creatine Kinase 297 H 70 CK-MB (CK-2) 3.51 Troponin I 0.021 02/25/18 02/25/18 02/25/18 15:40 21:08 21:08 Creatine Kinase 60 CK-MB (CK-2) 1.97 1.93 Troponin I 0.038 0.043 Impressions: Chest X-Ray 02/24/18 09:23 IMPRESSION: Increasing airspace opacities in the right lung base. This could be consistent with pneumonia in the correct clinical setting. Differential diagnosis includes early pulmonary edema. Chest CT 02/25/18 00:00 IMPRESSION: Multifocal pneumonia with more focal consolidation in the right lower lobe. Questionable pulmonary nodule in the left upper lobe. Mediastinal adenopathy. Clinical correlation and follow-up is recommended. Assessment & Plan - Diagnosis (1) Right lower lobe pneumonia Qualifiers: Pneumonia type: due to unspecified organism Qualified Code(s): J18.1 - Lobar pneumonia, unspecified organism Is this a current diagnosis for this admission?: Yes Plan: As per discussed with the pulmonary continues to IV antibiotic (2) Chronic atrial fibrillation Is this a current diagnosis for this admission?: Yes Plan: Currently all stable with the p.o. Cardizem's and Xarelto (3) History of pulmonary embolism Is this a current diagnosis for this admission?: Yes Plan: Patient had a lifelong Xarelto (4) COPD exacerbation Is this a current diagnosis for this admission?: Yes Plan: Continues to nebulizer treatments Denies some mild pleuritic chest pains will get the CT of the chest (5) HTN (hypertension) Qualifiers: Hypertension type: essential hypertension Qualified Code(s): I10 - Essential (primary) hypertension Is this a current diagnosis for this admission?: Yes Plan: Continues to current medications (6) Hypothyroidism Qualifiers: Hypothyroidism type: unspecified Qualified Code(s): E03.9 - Hypothyroidism , unspecified Is this a current diagnosis for this admission?: Yes Plan: Check a TSH (7) Chronic bronchiectasis not affecting current episode of care Is this a current diagnosis for this admission?: Yes Plan: Continues to nebulizer treatments - Time Time Spent with patient: 15-24 minutes Medications reviewed and adjusted accordingly: Yes Anticipated discharge: Home Within: Other - Inpatient Certification Medical Necessity: Need Close Monitoring Due to Risk of Patient Decompensation, Need for IV Antibiotics 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
[2018-02-27] MEDS: CHOLECALCIFEROL (D3) 1,000 UNIT TABLET PO SCH (10:55)
[2018-02-27] MEDS: VALSARTAN 80 MG TABLET PO SCH (10:55)
[2018-02-27] MEDS: LEVOFLOXACIN 750 MG/D5W RTU 750 MG/150 ML RTUPB IV SCH (10:56)
[2018-02-27] MEDS: ACETAMINOPHEN 325 MG TABLET PO PRN ×2 (16:15→21:04)
[2018-02-27] MEDS: RIVAROXABAN 10 MG TABLET PO SCH (18:04)
[2018-02-27] MEDS: IMIPENEM/CILASTATIN SODIUM 500 MG in NORMAL SALINE 100 ML IV SCH ×2 (18:42→23:53)
--- NOTE | 2018-02-27 19:58 | PDOC PROGRESS REPORT ---
Subjective Progress Note for:: 02/27/18 Subjective:: Patient noted to have converted to sinus rhythm. Patient seems to be doing better with gradual improvement. Pt is denying any chest arm or neck discomfort. Patient denying any PND, orthopnea. Patient denied any sustained palpitations, dizziness, syncope, near syncope. Patient denying any fever chills. Patient denying any other significant discomfort. Review of systems: Rest review of systems negative. Medications: Medications have been reviewed. Reason For Visit: RIGHT LOBAR PNEUMONIA Physical Exam Vital Signs: Temp Pulse Resp BP Pulse Ox 100.4 F 108 H 24 H 135/69 H 100 02/27/18 15:18 02/27/18 15:18 02/27/18 15:18 02/27/18 15:18 02/27/18 15:18 Intake & Output 02/26/18 02/27/18 02/28/18 06:59 06:59 06:59 Intake Total 2581 4911 1568 Output Total 0 Balance 2581 4911 1568 Weight 72.1 kg 70.2 kg Exam: GENERAL: well-nourished and in no acute distress. Alert and oriented x3 HEAD: Atraumatic, normocephalic. EYES: Pupils equal round and reactive to light, extraocular movements intact, sclera anicteric, conjunctiva are normal. ENT: TMs normal, nares patent, oropharynx clear without exudates. Moist mucous membranes. No oral ulcerations or bleeding gums noted NECK: supple without lymphadenopathy. Trachea is central. No cervical or axillary lymphadenopathy noted. Carotids are 2+, JVD WNL LUNGS: Respiration seems nonlabored, no significant accessory muscle action noted. Bibasilar fine crackles noted. Occasional scattered wheezing noted. Mild right basal dullness noted. CHEST: Palpation of the chest wall shows no significant chest wall tenderness. 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 ABDOMEN: Soft, no significant tenderness appreciated, normoactive bowel sounds. No guarding, no rebound. No rigidity noted . No masses appreciated. EXTREMITIES: Pedal pulses are 1-2+, no calf tenderness noted. No clubbing or cyanosis. negative pedal edema noted NEUROLOGICAL: Focused neurological exam showed no significant neurologic deficit. Normal speech, no focal weakness appreciated. PSYCH: Normal mood, normal affect. Judgment and insight within normal limits. SKIN: No significant ecchymosis, skin is noted to be warm. MUSCULOSKELETAL EXAM: No significant acute joint swelling noted. Results Laboratory Results: 02/26/18 05:35 02/27/18 05:19 02/27/18 05:19 Sodium 146.1 H Potassium 4.5 Chloride 118 H Carbon Dioxide 19 L Anion Gap 9 BUN 17 Creatinine 0.90 Est GFR ( Amer) > 60 Est GFR (Non-Af Amer) > 60 Glucose 95 Calcium 8.6 02/25/18 02/25/18 02/25/18 09:23 09:23 15:40 Creatine Kinase 297 H 70 CK-MB (CK-2) 3.51 Troponin I 0.021 02/25/18 02/25/18 02/25/18 15:40 21:08 21:08 Creatine Kinase 60 CK-MB (CK-2) 1.97 1.93 Troponin I 0.038 0.043 EKG Comments: Patient noted to have converted to sinus rhythm on telemetry monitoring. Impressions: Chest X-Ray 02/24/18 09:23 IMPRESSION: Increasing airspace opacities in the right lung base. This could be consistent with pneumonia in the correct clinical setting. Differential diagnosis includes early pulmonary edema. Chest CT 02/25/18 00:00 IMPRESSION: Multifocal pneumonia with more focal consolidation in the right lower lobe. Questionable pulmonary nodule in the left upper lobe. Mediastinal adenopathy. Clinical correlation and follow-up is recommended. Assessment & Plan - Diagnosis (1) Atrial fibrillation with rapid ventricular response Is this a current diagnosis for this admission?: Yes (2) History of pulmonary embolism Is this a current diagnosis for this admission?: Yes (3) Right lower lobe pneumonia Qualifiers: Pneumonia type: due to unspecified organism Qualified Code(s): J18.1 - Lobar pneumonia, unspecified organism Is this a current diagnosis for this admission?: Yes (4) COPD exacerbation Is this a current diagnosis for this admission?: Yes (5) HTN (hypertension) Qualifiers: Hypertension type: essential hypertension Qualified Code(s): I10 - Essential (primary) hypertension Is this a current diagnosis for this admission?: Yes - Notes Notes: Now converted to sinus rhythm. Follow for any rhythm changes. Atrial fibrillation with rapid ventricular response: Now in sinus rhythm. Atrial fibrillation possibly related to pneumonia therefore no chronic anticoagulation needed for this purpose but continue chronic anticoagulation for pulmonary embolism. History of pulmonary embolism: Patient currently on chronic anticoagulation. Right lower lobe pneumonia: Continue antibiotic therapy. COPD: Continue bronchodilator therapy, steroid therapy as needed for COPD exacerbation. Hypertension: Recommend liberal controlled for this patient at her age. - Time Time with patient: 15-25 minutes - More than 50% of the time spent coordinating care, discussing management plans with involved caregivers. Management plans discussed with involved personnels. Medical decision making was of moderate to high complexity, patient's has multiple comorbidities. Medications reviewed and adjusted accordingly: Yes
[2018-02-28] MEDS: LEVALBUTEROL HCL NEB 1.25 MG/3 ML AMPUL NEB SCH ×4 (01:44→20:33)
[2018-02-28] MEDS: DILTIAZEM HCL 120 MG CAP.SR.24H PO SCH ×2 (05:22→17:21)
[2018-02-28] MEDS: LANSOPRAZOLE 30 MG TAB.RAP.DR PO SCH (05:23)
[2018-02-28] MEDS: DIPHENHYDRAMINE HCL 25 MG CAPSULE PO SCH ×4 (05:23→23:15)
[2018-02-28 05:54] LABS: HEMATOCRIT 34.8 % (36.0-47.0); HEMOGLOBIN 11.5 g/dL (12.0-15.5); MEAN CORPUSCULAR HEMOGLOBIN 30.6 pg (27.0-33.4); MEAN CORPUSCULAR HGB CONC 33.2 g/dL (32.0-36.0); MEAN CORPUSCULAR VOLUME 92 fl (80-97); PLATELET COUNT 232 10^3/uL (150-450); RED BLOOD COUNT 3.77 10^6/uL (3.72-5.28); RED CELL DISTRIBUTION WIDTH 14.8 % (11.5-14.0)
[2018-02-28 06:14] LABS: ABSOLUTE LYMPHOCYTES# (MANUAL) 1.5 10^3/uL (0.5-4.7); ABSOLUTE NEUTROPHILS# (MANUAL) 14.5 10^3/uL (1.7-8.2); BASOPHILS % (MANUAL) 0 % (0-2); EOSINOPHILS % (MANUAL) 0 % (0-6); LYMPHOCYTES % (MANUAL) 9 % (13-45); MONOCYTES % (MANUAL) 6 % (3-13); RBC MORPHOLOGY COMMENT NORMO-CYTIC/CHROMIC; SEGMENTED NEUTROPHILS % (MAN) 85 % (42-78); TOTAL CELLS COUNTED 100
[2018-02-28 06:15] LABS: PLATELET COMMENT ADEQUATE
[2018-02-28 06:19] LABS: ANION GAP 10 (5-19); BLOOD UREA NITROGEN 16 mg/dL (7-20); CALCIUM 8.9 mg/dL (8.4-10.2); CARBON DIOXIDE 19 mmol/L (22-30); CHLORIDE 117 mmol/L (98-107); GLUCOSE 95 mg/dL (75-110); POTASSIUM 4.5 mmol/L (3.6-5.0); SODIUM 146.3 mmol/L (137-145)
[2018-02-28] MEDS: IMIPENEM/CILASTATIN SODIUM 500 MG in NORMAL SALINE 100 ML IV SCH ×3 (06:29→18:19)
[2018-02-28] MEDS ORDERED: NORMAL SALINE 1000 ML 1,000 ML IV PRN (08:08)
[2018-02-28] MEDS: VALSARTAN 80 MG TABLET PO SCH (10:53)
[2018-02-28] MEDS: CHOLECALCIFEROL (D3) 1,000 UNIT TABLET PO SCH (10:53)
[2018-02-28] MEDS: GUAIFENESIN SYRP 200 MG/10 ML UDC PO PRN ×2 (12:44→23:15)
--- NOTE | 2018-02-28 13:45 | PDOC PROGRESS REPORT ---
Subjective Progress Note for:: 02/28/18 Reason For Visit: RIGHT LOBAR PNEUMONIA Patient is currently doing same feeling little bit better but still coughing She has denied any chest pain denied any shortness of the breath Patient's white count is slightly elevated compared to yesterday but patients remain afebrile currently on Levaquin and imipenem Physical Exam Vital Signs: Temp Pulse Resp BP Pulse Ox 99.5 F 96 16 160/76 H 98 02/28/18 08:08 02/28/18 08:09 02/28/18 08:09 02/28/18 08:08 02/28/18 08:09 Intake & Output 02/27/18 02/28/18 03/01/18 06:59 06:59 06:59 Intake Total 4911 2007 100 Balance 4911 2007 100 Weight 70.2 kg 69.6 kg General appearance: PRESENT: no acute distress, well-developed, well-nourished Head exam: PRESENT: atraumatic, normocephalic Eye exam: PRESENT: conjunctiva pink, EOMI, PERRLA. ABSENT: scleral icterus Ear exam: PRESENT: normal external ear exam Mouth exam: PRESENT: moist, tongue midline Neck exam: PRESENT: full ROM. ABSENT: carotid bruit, JVD, lymphadenopathy, thyromegaly Respiratory exam: PRESENT: clear to auscultation stephanie Cardiovascular exam: PRESENT: RRR. ABSENT: diastolic murmur, rubs, systolic murmur Pulses: PRESENT: normal dorsalis pedis pul, +2 pedal pulses bilateral Vascular exam: PRESENT: normal capillary refill GI/Abdominal exam: PRESENT: normal bowel sounds, soft. ABSENT: distended, guarding, mass, organolmegaly, rebound, tenderness Rectal exam: PRESENT: deferred Extremities exam: ABSENT: pedal edema Musculoskeletal exam: PRESENT: ambulatory Neurological exam: PRESENT: alert, awake, oriented to person, oriented to place , oriented to time, oriented to situation, CN II-XII grossly intact. ABSENT: motor sensory deficit Psychiatric exam: PRESENT: appropriate affect, normal mood. ABSENT: homicidal ideation, suicidal ideation Skin exam: PRESENT: dry, intact, warm. ABSENT: cyanosis, rash Results Laboratory Results: 02/28/18 05:33 02/28/18 05:33 02/28/18 02/28/18 05:33 05:33 WBC 17.0 H RBC 3.77 Hgb 11.5 L Hct 34.8 L MCV 92 MCH 30.6 MCHC 33.2 RDW 14.8 H Plt Count 232 Seg Neutrophils % Not Reportable Lymphocytes % Not Reportable Monocytes % Not Reportable Eosinophils % Not Reportable Basophils % Not Reportable Absolute Neutrophils Not Reportable Absolute Lymphocytes Not Reportable Absolute Monocytes Not Reportable Absolute Eosinophils Not Reportable Absolute Basophils Not Reportable Sodium 146.3 H Potassium 4.5 Chloride 117 H Carbon Dioxide 19 L Anion Gap 10 BUN 16 Creatinine 0.87 Est GFR ( Amer) > 60 Est GFR (Non-Af Amer) > 60 Glucose 95 Calcium 8.9 02/25/18 02/25/18 02/25/18 09:23 09:23 15:40 Creatine Kinase 297 H 70 CK-MB (CK-2) 3.51 Troponin I 0.021 02/25/18 02/25/18 02/25/18 15:40 21:08 21:08 Creatine Kinase 60 CK-MB (CK-2) 1.97 1.93 Troponin I 0.038 0.043 Impressions: Chest X-Ray 02/24/18 09:23 IMPRESSION: Increasing airspace opacities in the right lung base. This could be consistent with pneumonia in the correct clinical setting. Differential diagnosis includes early pulmonary edema. Chest CT 02/25/18 00:00 IMPRESSION: Multifocal pneumonia with more focal consolidation in the right lower lobe. Questionable pulmonary nodule in the left upper lobe. Mediastinal adenopathy. Clinical correlation and follow-up is recommended. Assessment & Plan - Diagnosis (1) Right lower lobe pneumonia Qualifiers: Pneumonia type: due to unspecified organism Qualified Code(s): J18.1 - Lobar pneumonia, unspecified organism Is this a current diagnosis for this admission?: Yes Plan: Continues to IV antibiotic will repeat the sputum culture and repeat the chest x -ray if his white count score elevated consider add the vancomycin's to cover the MRSA (2) Chronic atrial fibrillation Is this a current diagnosis for this admission?: Yes Plan: Currently all stable with the p.o. Cardizem's and Xarelto (3) History of pulmonary embolism Is this a current diagnosis for this admission?: Yes Plan: Patient had a lifelong Xarelto (4) COPD exacerbation Is this a current diagnosis for this admission?: Yes Plan: Continues to nebulizer treatments Denies some mild pleuritic chest pains will get the CT of the chest (5) HTN (hypertension) Qualifiers: Hypertension type: essential hypertension Qualified Code(s): I10 - Essential (primary) hypertension Is this a current diagnosis for this admission?: Yes Plan: Continues to current medications (6) Hypothyroidism Qualifiers: Hypothyroidism type: unspecified Qualified Code(s): E03.9 - Hypothyroidism , unspecified Is this a current diagnosis for this admission?: Yes Plan: Check a TSH (7) Chronic bronchiectasis not affecting current episode of care Is this a current diagnosis for this admission?: Yes Plan: Continues to nebulizer treatments - Time Time Spent with patient: 15-24 minutes Medications reviewed and adjusted accordingly: Yes Anticipated discharge: Other Within: Other - Inpatient Certification Medical Necessity: Need Close Monitoring Due to Risk of Patient Decompensation, Need for IV Antibiotics 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
--- NOTE | 2018-02-28 15:32 | RADIOLOGY REPORT (SQ) ---
EXAM DESCRIPTION: CHEST 2 VIEWS COMPLETED DATE/TIME: 02/28/2018 3:21 pm REASON FOR STUDY: Pneumonia COMPARISON: CT dated 02/26/2018. Chest x-ray dated 02/24/2018. EXAM PARAMETERS: NUMBER OF VIEWS: two views TECHNIQUE: Digital Frontal and Lateral radiographic views of the chest acquired. RADIATION DOSE: NA LIMITATIONS: none FINDINGS: LUNGS AND PLEURA: Extensive patchy airspace disease throughout the right lung and in the l eft lung base. Small pleural effusions. MEDIASTINUM AND HILAR STRUCTURES: No masses or contour abnormalities. HEART AND VASCULAR STRUCTURES: Heart normal size. No evidence for failure. BONES: No acute findings. HARDWARE: None in the chest. OTHER: No other significant finding. IMPRESSION: EXTENSIVE PATCHY AIRSPACE DISEASE, RIGHT GREATER THAN LEFT, WELL SMALL PLEURAL EFF USIONS. COMPARED TO RECENT CT, THERE IS PROBABLY NO SIGNIFICANT INTERVAL CHANGE. TECHNICAL DOCUMENTATION: JOB ID: [id number] [employer]- All Rights Reserved Reading location - IP/workstation name: [email or web address]
[2018-02-28] MEDS: RIVAROXABAN 10 MG TABLET PO SCH (17:20)
--- NOTE | 2018-02-28 20:28 | PDOC PROGRESS REPORT ---
Subjective Progress Note for:: 02/28/18 Subjective:: Patient noted to have converted to sinus rhythm yesterday. Patient is maintaining sinus rhythm this morning. Patient seems to be doing better with gradual improvement. Pt is denying any chest arm or neck discomfort. Patient denying any PND, orthopnea. Patient denied any sustained palpitations, dizziness, syncope, near syncope. Patient denying any fever chills. Patient denying any other significant discomfort. Review of systems: Rest review of systems negative. Medications: Medications have been reviewed. Reason For Visit: RIGHT LOBAR PNEUMONIA Physical Exam Vital Signs: Temp Pulse Resp BP Pulse Ox 98.0 F 104 H 24 H 137/51 H 100 02/28/18 15:51 02/28/18 15:51 02/28/18 15:51 02/28/18 15:51 02/28/18 15:51 Intake & Output 02/27/18 02/28/18 03/01/18 06:59 06:59 06:59 Intake Total 4911 2007 1199 Balance 4911 2007 119 Weight 70.2 kg 69.6 kg Exam: GENERAL: well-nourished and in no acute distress. Alert and oriented x3 HEAD: Atraumatic, normocephalic. EYES: Pupils equal round and reactive to light, extraocular movements intact, sclera anicteric, conjunctiva are normal. ENT: TMs normal, nares patent, oropharynx clear without exudates. Moist mucous membranes. No oral ulcerations or bleeding gums noted NECK: supple without lymphadenopathy. Trachea is central. No cervical or axillary lymphadenopathy noted. Carotids are 2+, JVD WNL LUNGS: Respiration seems nonlabored, no significant accessory muscle action noted. Bibasilar fine crackles right more than left with occasional scattered wheezing noted. CHEST: Palpation of the chest wall shows no significant chest wall tenderness. HEART: [place] [employer], No PSH, 1/6 EYAD aortic area, 1/6 luu systolic murmur mitral area, no rubs, no gallops. ABDOMEN: Soft, no significant tenderness appreciated, normoactive bowel sounds. No guarding, no rebound. No rigidity noted . No masses appreciated. EXTREMITIES: Pedal pulses are 1-2+, no calf tenderness noted. No clubbing or cyanosis. negative pedal edema noted NEUROLOGICAL: Focused neurological exam showed no significant neurologic deficit. Normal speech, no focal weakness appreciated. PSYCH: Normal mood, normal affect. Judgment and insight within normal limits. SKIN: No significant ecchymosis, skin is noted to be warm. MUSCULOSKELETAL EXAM: No significant acute joint swelling noted. Results Laboratory Results: 02/28/18 05:33 02/28/18 05:33 02/28/18 02/28/18 05:33 05:33 WBC 17.0 H RBC 3.77 Hgb 11.5 L Hct 34.8 L MCV 92 MCH 30.6 MCHC 33.2 RDW 14.8 H Plt Count 232 Seg Neutrophils % Not Reportable Lymphocytes % Not Reportable Monocytes % Not Reportable Eosinophils % Not Reportable Basophils % Not Reportable Absolute Neutrophils Not Reportable Absolute Lymphocytes Not Reportable Absolute Monocytes Not Reportable Absolute Eosinophils Not Reportable Absolute Basophils Not Reportable Sodium 146.3 H Potassium 4.5 Chloride 117 H Carbon Dioxide 19 L Anion Gap 10 BUN 16 Creatinine 0.87 Est GFR ( Amer) > 60 Est GFR (Non-Af Amer) > 60 Glucose 95 Calcium 8.9 02/25/18 22:40 Sputum Gram Stain - Final 02/25/18 22:40 Sputum Sputum Culture - Final NORMAL MARICEL 02/25/18 02/25/18 02/25/18 09:23 09:23 15:40 Creatine Kinase 297 H 70 CK-MB (CK-2) 3.51 Troponin I 0.021 02/25/18 02/25/18 02/25/18 15:40 21:08 21:08 Creatine Kinase 60 CK-MB (CK-2) 1.97 1.93 Troponin I 0.038 0.043 EKG Comments: Telemetry shows patient maintaining sinus rhythm. Impressions: Chest CT 02/25/18 00:00 IMPRESSION: Multifocal pneumonia with more focal consolidation in the right lower lobe. Questionable pulmonary nodule in the left upper lobe. Mediastinal adenopathy. Clinical correlation and follow-up is recommended. Chest X-Ray 02/28/18 00:00 IMPRESSION: EXTENSIVE PATCHY AIRSPACE DISEASE, RIGHT GREATER THAN LEFT, WELL SMALL PLEURAL EFFUSIONS. COMPARED TO RECENT CT, THERE IS PROBABLY NO SIGNIFICANT INTERVAL CHANGE. Assessment & Plan - Diagnosis (1) Atrial fibrillation with rapid ventricular response Is this a current diagnosis for this admission?: Yes (2) History of pulmonary embolism Is this a current diagnosis for this admission?: Yes (3) Right lower lobe pneumonia Qualifiers: Pneumonia type: due to unspecified organism Qualified Code(s): J18.1 - Lobar pneumonia, unspecified organism Is this a current diagnosis for this admission?: Yes (4) COPD exacerbation Is this a current diagnosis for this admission?: Yes (5) HTN (hypertension) Qualifiers: Hypertension type: essential hypertension Qualified Code(s): I10 - Essential (primary) hypertension Is this a current diagnosis for this admission?: Yes - Notes Notes: Now converted to sinus rhythm. Follow for any rhythm changes. Atrial fibrillation with rapid ventricular response: Now in sinus rhythm. Atrial fibrillation possibly related to pneumonia therefore no chronic anticoagulation needed for this purpose but continue chronic anticoagulation for pulmonary embolism. 2D echocardiogram was still pending to be reviewed. History of pulmonary embolism: Patient currently on chronic anticoagulation. Right lower lobe pneumonia: Continue antibiotic therapy. COPD: Continue bronchodilator therapy, steroid therapy as needed for COPD exacerbation. Hypertension: Recommend liberal controlled for this patient at her age. - Time Time with patient: 15-25 minutes - More than 50% of the time spent coordinating care, discussing management plans with involved caregivers. Management plans discussed with involved personnels. Medical decision making was of moderate to high complexity, patient's has multiple comorbidities. Medications reviewed and adjusted accordingly: Yes
[2018-02-28] MEDS: DOCUSATE SODIUM 100 MG CAPSULE PO PRN (23:15)
[2018-02-28] MEDS: ACETAMINOPHEN 325 MG TABLET PO PRN (23:15)
[2018-03-01] MEDS: IMIPENEM/CILASTATIN SODIUM 500 MG in NORMAL SALINE 100 ML IV SCH ×4 (00:07→17:55)
[2018-03-01] MEDS: LEVALBUTEROL HCL NEB 1.25 MG/3 ML AMPUL NEB SCH ×4 (01:57→20:17)
[2018-03-01] MEDS: DIPHENHYDRAMINE HCL 25 MG CAPSULE PO SCH ×4 (05:19→22:52)
[2018-03-01] MEDS: DILTIAZEM HCL 120 MG CAP.SR.24H PO SCH ×2 (05:21→17:03)
[2018-03-01] MEDS: LANSOPRAZOLE 30 MG TAB.RAP.DR PO SCH (05:22)
[2018-03-01 05:58] LABS: HEMATOCRIT 34.9 % (36.0-47.0); HEMOGLOBIN 11.7 g/dL (12.0-15.5); MEAN CORPUSCULAR HEMOGLOBIN 30.9 pg (27.0-33.4); MEAN CORPUSCULAR HGB CONC 33.4 g/dL (32.0-36.0); MEAN CORPUSCULAR VOLUME 93 fl (80-97); PLATELET COUNT 269 10^3/uL (150-450); RED BLOOD COUNT 3.77 10^6/uL (3.72-5.28); RED CELL DISTRIBUTION WIDTH 14.9 % (11.5-14.0)
[2018-03-01 06:22] LABS: BASOPHILS % (MANUAL) 0 % (0-2); METAMYELOCYTES % (MANUAL) 2 % (0); TOTAL CELLS COUNTED 100; TOXIC GRANULATION 2+
[2018-03-01 06:23] LABS: ANISOCYTOSIS SLIGHT; PLATELET COMMENT ADEQUATE
[2018-03-01] MEDS ORDERED: POLYETHYLENE GLYCOL 3350 POWDER 17 GM/1 PACKET PO PRN (07:43)
[2018-03-01] MEDS ORDERED: VANCOMYCIN HCL 0 MG in DEXTROSE 5%-WATER 250 ML IV NR (07:45)
--- NOTE | 2018-03-01 09:31 | PDOC PROGRESS REPORT ---
Subjective Progress Note for:: 03/01/18 Subjective:: Patient is currently doing same but currently denied any chest pain denied any shortness of the breath still coughing with the green sputum Patient's currently on IV imipenem and Levaquin Since currently on a Cardizem drip Reason For Visit: RIGHT LOBAR PNEUMONIA Physical Exam Vital Signs: Temp Pulse Resp BP Pulse Ox 98.1 F 78 16 146/68 H 99 03/01/18 07:31 03/01/18 07:31 03/01/18 07:31 03/01/18 07:31 03/01/18 07:31 Intake & Output 02/28/18 03/01/18 03/02/18 06:59 06:59 06:59 Intake Total 2007 1399 100 Balance 2007 1399 100 Weight 69.6 kg 72 kg General appearance: PRESENT: no acute distress, well-developed, well-nourished Head exam: PRESENT: atraumatic, normocephalic Eye exam: PRESENT: conjunctiva pink, EOMI, PERRLA. ABSENT: scleral icterus Ear exam: PRESENT: normal external ear exam Mouth exam: PRESENT: moist, tongue midline Neck exam: PRESENT: full ROM. ABSENT: carotid bruit, JVD, lymphadenopathy, thyromegaly Respiratory exam: PRESENT: clear to auscultation stephanie Cardiovascular exam: PRESENT: RRR. ABSENT: diastolic murmur, rubs, systolic murmur Pulses: PRESENT: normal dorsalis pedis pul, +2 pedal pulses bilateral Vascular exam: PRESENT: normal capillary refill GI/Abdominal exam: PRESENT: normal bowel sounds, soft. ABSENT: distended, guarding, mass, organolmegaly, rebound, tenderness Rectal exam: PRESENT: deferred Extremities exam: ABSENT: pedal edema Musculoskeletal exam: PRESENT: ambulatory Neurological exam: PRESENT: alert, awake, oriented to person, oriented to place , oriented to time, oriented to situation, CN II-XII grossly intact. ABSENT: motor sensory deficit Psychiatric exam: PRESENT: appropriate affect, normal mood. ABSENT: homicidal ideation, suicidal ideation Skin exam: PRESENT: dry, intact, warm. ABSENT: cyanosis, rash Results Laboratory Results: 03/01/18 05:39 02/28/18 05:33 03/01/18 05:39 WBC 17.0 H RBC 3.77 Hgb 11.7 L Hct 34.9 L MCV 93 MCH 30.9 MCHC 33.4 RDW 14.9 H Plt Count 269 Seg Neutrophils % Not Reportable Lymphocytes % Not Reportable Monocytes % Not Reportable Eosinophils % Not Reportable Basophils % Not Reportable Absolute Neutrophils Not Reportable Absolute Lymphocytes Not Reportable Absolute Monocytes Not Reportable Absolute Eosinophils Not Reportable Absolute Basophils Not Reportable 02/25/18 22:40 Sputum Gram Stain - Final 02/25/18 22:40 Sputum Sputum Culture - Final NORMAL MARICEL 02/25/18 02/25/18 02/25/18 09:23 09:23 15:40 Creatine Kinase 297 H 70 CK-MB (CK-2) 3.51 Troponin I 0.021 02/25/18 02/25/18 02/25/18 15:40 21:08 21:08 Creatine Kinase 60 CK-MB (CK-2) 1.97 1.93 Troponin I 0.038 0.043 Impressions: Chest CT 02/25/18 00:00 IMPRESSION: Multifocal pneumonia with more focal consolidation in the right lower lobe. Questionable pulmonary nodule in the left upper lobe. Mediastinal adenopathy. Clinical correlation and follow-up is recommended. Chest X-Ray 02/28/18 00:00 IMPRESSION: EXTENSIVE PATCHY AIRSPACE DISEASE, RIGHT GREATER THAN LEFT, WELL SMALL PLEURAL EFFUSIONS. COMPARED TO RECENT CT, THERE IS PROBABLY NO SIGNIFICANT INTERVAL CHANGE. Assessment & Plan - Diagnosis (1) Right lower lobe pneumonia Qualifiers: Pneumonia type: due to unspecified organism Qualified Code(s): J18.1 - Lobar pneumonia, unspecified organism Is this a current diagnosis for this admission?: Yes Plan: With the persistent pneumonia and persistent elevated white count with some low- grade fever we will add the vancomycin with the current antibiotic (2) Chronic atrial fibrillation Is this a current diagnosis for this admission?: Yes Plan: Currently all stable with the p.o. Cardizem's and Xarelto (3) History of pulmonary embolism Is this a current diagnosis for this admission?: Yes Plan: Patient had a lifelong Xarelto (4) COPD exacerbation Is this a current diagnosis for this admission?: Yes Plan: Continues to nebulizer treatments Denies some mild pleuritic chest pains will get the CT of the chest (5) HTN (hypertension) Qualifiers: Hypertension type: essential hypertension Qualified Code(s): I10 - Essential (primary) hypertension Is this a current diagnosis for this admission?: Yes Plan: Continues to current medications (6) Hypothyroidism Qualifiers: Hypothyroidism type: unspecified Qualified Code(s): E03.9 - Hypothyroidism , unspecified Is this a current diagnosis for this admission?: Yes Plan: Check a TSH (7) Chronic bronchiectasis not affecting current episode of care Is this a current diagnosis for this admission?: Yes Plan: Continues to nebulizer treatments - Time Time Spent with patient: 15-24 minutes Medications reviewed and adjusted accordingly: Yes Anticipated discharge: Other Within: Other - Inpatient Certification Medical Necessity: Need Close Monitoring Due to Risk of Patient Decompensation, Need for IV Antibiotics Post Hospital Care: D/C Lpn Medical Assistant Documentation - Plan Summary Plan Summary: Add the vancomycin's with the other antibiotic
[2018-03-01] MEDS: CHOLECALCIFEROL (D3) 1,000 UNIT TABLET PO SCH (10:01)
[2018-03-01] MEDS: VALSARTAN 80 MG TABLET PO SCH (10:01)
[2018-03-01] MEDS: LEVOFLOXACIN 750 MG/D5W RTU 750 MG/150 ML RTUPB IV SCH (10:01)
--- NOTE | 2018-03-01 10:04 | XCELERA REPORT ---
[address] [address] Transthoracic Echocardiogram Report Name: SAADIA HORNER Age: 82 yrs Gender: Female : 1935 Patient Status: Inpatient Patient Location: [address] [place] [address] Study Date: 02/28/2018 08:52 AM Height: 62 in Weight: 158 lb BSA: 1.7 m2 Procedure: A complete two-dimensional transthoracic echocardiogram was performed (2D, M-mode, spectral and color flow Doppler). The study was technically adequate with some images being suboptimal in quality. Reason For Study: A. fib Ordering Physician: SHIRIN CURRAN Performed By: Cynthia Rodriguez Interpretation Summary The left ventricular ejection fraction is normal. There is borderline concentric left ventricular hypertrophy. The left ventricle is grossly normal size. Doppler measurements suggest pseudonormalized left ventricular relaxation, which is associated with grade II/IV or mild to moderate diastolic dysfunction Wall motion cannot be accurately commented on, but no definite regional wall motion abnormalities noted. The right ventricular systolic function is normal. The right ventricle is moderately dilated. The right ventricle appears to be hypertrophied The left atrial size is normal. Borderline right atrial enlargement. There is a mild amount of mitral regurgitation There is no mitral valve stenosis. No aortic regurgitation is present. There is no aortic valve stenosis There is a mild amount of tricuspid regurgitation There is moderate pulmonary hypertension by echo Right ventricular systolic pressure is estimated to be elevated at 40- 50mmHg. The aortic root is not well visualized but is probably normal size. The inferior vena cava appeared normal and decreased > 50% with respiration (RAP 5-10 mmHg) There is no pericardial effusion. MMode/2D Measurements & Calculations RVDd: 3.5 cm LVIDd: 4.3 cm FS: 33.5 % Ao root diam: 2.9 cm IVSd: 0.95 cm LVIDs: 2.8 cm EDV(Teich): 81.3 ml ESV(Teich): 30.5 ml Ao root area: 6.5 cm2 EF(Teich): 62.6 % LVOT diam: 1.9 cm LVOT area: 2.7 cm2 Doppler Measurements & Calculations MV E max flower: MV dec slope: Ao V2 max: LV V1 max P.4 cm/sec 466.9 cm/sec2 188.3 cm/sec 12.2 mmHg MV A max flower: MV dec time: Ao max PG: LV V1 max: 123.3 cm/sec 0.18 sec 14.2 mmHg 174.8 cm/sec MV E/A: 0.68 DESEAN(V,D): 2.5 cm2 PA V2 max: TR max flower: 135.6 cm/sec 264.4 cm/sec PA max P.4 mmHgTR max P.5 mmHg Left Ventricle The left ventricle is grossly normal size. There is borderline concentric left ventricular hypertrophy. The left ventricular ejection fraction is normal. Doppler measurements suggest pseudonormalized left ventricular relaxation, which is associated with grade II/IV or mild to moderate diastolic dysfunction. Wall motion cannot be accurately commented on, but no definite regional wall motion abnormalities noted. Right Ventricle The right ventricle is moderately dilated. The right ventricle appears to be hypertrophied. The right ventricular systolic function is normal. Atria Borderline right atrial enlargement. The left atrial size is normal. Interarterial septum not well visualized and not well dopplered. Cannot comment on ASD/PFO presence. Mitral Valve The mitral valve is grossly normal. There is no mitral valve stenosis. There is a mild amount of mitral regurgitation. Aortic Valve The aortic valve is not well visualized secondary to technical limitations. There is no aortic valve stenosis. No aortic regurgitation is present. Tricuspid Valve The tricuspid valve is not well visualized, but is grossly normal. There is no tricuspid stenosis. There is a mild amount of tricuspid regurgitation. There is moderate pulmonary hypertension by echo. Right ventricular systolic pressure is estimated to be elevated at 40-50mmHg. Pulmonic Valve The pulmonic valve is not well visualized. Great Vessels The aortic root is not well visualized but is probably normal size. The inferior vena cava appeared normal and decreased > 50% with respiration (RAP 5-10 mmHg). Effusions There is no pericardial effusion. : SHIRIN CURRAN > Shirin Curran
[2018-03-01] MEDS: GUAIFENESIN 600 MG TABLET.SA PO SCH ×2 (12:13→22:52)
[2018-03-01 13:45] LABS: BAND NEUTROPHILS % (MANUAL) 1 % (3-5)
[2018-03-01 13:48] LABS: MYELOCYTES % (MANUAL) 2 % (0)
[2018-03-01 13:57] LABS: LYMPHOCYTES % (MANUAL) 8 % (13-45); SEGMENTED NEUTROPHILS % (MAN) 74 % (42-78)
[2018-03-01 13:58] LABS: EOSINOPHILS % (MANUAL) 3 % (0-6); MONOCYTES % (MANUAL) 8 % (3-13)
[2018-03-01 13:59] LABS: ABSOLUTE LYMPHOCYTES# (MANUAL) 1.7 10^3/uL (0.5-4.7); ABSOLUTE MONOCYTES # (MANUAL) 1.4 10^3/uL (0.1-1.4)
[2018-03-01] MEDS ORDERED: VANCOMYCIN HCL 1,250 MG in DEXTROSE 5%-WATER 250 ML IV SCH (14:00)
[2018-03-01] MEDS: ACETAMINOPHEN 325 MG TABLET PO PRN (15:39)
--- NOTE | 2018-03-01 15:50 | RADIOLOGY REPORT (SQ) ---
EXAM DESCRIPTION: FOOT RIGHT COMPLETE COMPLETED DATE/TIME: 03/01/2018 3:26 pm REASON FOR STUDY: pain COMPARISON: None. NUMBER OF VIEWS: Three views. TECHNIQUE: AP, lateral and oblique without weight bearing radiographic images acquired of the right foot. LIMITATIONS: None. FINDINGS: MINERALIZATION: Osteopenia. BONES: No acute fracture or dislocation. No worrisome bone lesions. Hallux valgus. JOINTS: No erosions. No anahi-articular osteopenia. No chondrocalcinosis. SOFT TISSUES: No swelling. No calcifications. OTHER: No other significant finding. IMPRESSION: Hallux valgus. No fractures P TECHNICAL DOCUMENTATION: JOB ID: [id number] [facility]- All Rights Reserved Reading location - IP/workstation name: [email or web address]
--- NOTE | 2018-03-01 15:51 | RADIOLOGY REPORT (SQ) ---
EXAM DESCRIPTION: ANKLE RIGHT COMPLETE COMPLETED DATE/TIME: 03/01/2018 3:26 pm REASON FOR STUDY: pain COMPARISON: None. NUMBER OF VIEWS: Three views. TECHNIQUE: AP, lateral, and oblique without weight bearing radiographic images acquired of the right ankle. LIMITATIONS: None. FINDINGS: MINERALIZATION: Normal. BONES: No acute fracture or dislocation. No worrisome bone lesions. No significant osteophytes. JOINTS: No effusions. SOFT TISSUES: No soft tissue swelling. No foreign body. OTHER: No other significant finding. IMPRESSION: NO SIGNIFICANT FINDING IN THE RIGHT ANKLE. NO EXPLANATION FOR PAIN. TECHNICAL DOCUMENTATION: JOB ID: [id number] [employer]- All Rights Reserved Reading location - IP/workstation name: [email or web address]
[2018-03-01] MEDS: RIVAROXABAN 10 MG TABLET PO SCH (17:03)
--- NOTE | 2018-03-01 19:55 | PDOC PROGRESS REPORT ---
Subjective Progress Note for:: 03/01/18 Subjective:: Patient noted to be maintaining sinus rhythm this morning. Patient has noted some discomfort in the right ankle area. Continues to have some pleuritic chest pain especially on coughing. Patient seems to be doing better with gradual improvement. Pt is denying any chest arm or neck discomfort. Patient denying any PND, orthopnea. Patient denied any sustained palpitations, dizziness, syncope, near syncope. Patient denying any fever chills. Patient denying any other significant discomfort. Review of systems: Rest review of systems negative. Medications: Medications have been reviewed. Reason For Visit: RIGHT LOBAR PNEUMONIA Physical Exam Vital Signs: Temp Pulse Resp BP Pulse Ox 100.7 F H 103 H 16 141/68 H 99 03/01/18 15:36 03/01/18 15:36 03/01/18 15:36 03/01/18 15:36 03/01/18 15:36 Intake & Output 02/28/18 03/01/18 03/02/18 06:59 06:59 06:59 Intake Total 2007 1399 1648 Balance 2007 1399 1648 Weight 69.6 kg 72 kg Results Laboratory Results: 03/01/18 05:39 02/28/18 05:33 03/01/18 05:39 WBC 17.0 H RBC 3.77 Hgb 11.7 L Hct 34.9 L MCV 93 MCH 30.9 MCHC 33.4 RDW 14.9 H Plt Count 269 Seg Neutrophils % Not Reportable Lymphocytes % Not Reportable Monocytes % Not Reportable Eosinophils % Not Reportable Basophils % Not Reportable Absolute Neutrophils Not Reportable Absolute Lymphocytes Not Reportable Absolute Monocytes Not Reportable Absolute Eosinophils Not Reportable Absolute Basophils Not Reportable 02/28/18 15:35 Sputum Gram Stain - Final 02/28/18 15:35 Sputum Sputum Culture - Final Yeast, Not Lyn Albicans Normal Beth Absent 02/24/18 13:00 Blood Blood Culture - Final NO GROWTH IN 5 DAYS 02/25/18 02/25/18 02/25/18 09:23 09:23 15:40 Creatine Kinase 297 H 70 CK-MB (CK-2) 3.51 Troponin I 0.021 02/25/18 02/25/18 02/25/18 15:40 21:08 21:08 Creatine Kinase 60 CK-MB (CK-2) 1.97 1.93 Troponin I 0.038 0.043 Impressions: Chest CT 02/25/18 00:00 IMPRESSION: Multifocal pneumonia with more focal consolidation in the right lower lobe. Questionable pulmonary nodule in the left upper lobe. Mediastinal adenopathy. Clinical correlation and follow-up is recommended. Chest X-Ray 02/28/18 00:00 IMPRESSION: EXTENSIVE PATCHY AIRSPACE DISEASE, RIGHT GREATER THAN LEFT, WELL SMALL PLEURAL EFFUSIONS. COMPARED TO RECENT CT, THERE IS PROBABLY NO SIGNIFICANT INTERVAL CHANGE. Ankle X-Ray 03/01/18 00:00 IMPRESSION: NO SIGNIFICANT FINDING IN THE RIGHT ANKLE. NO EXPLANATION FOR PAIN. Foot X-Ray 03/01/18 00:00 IMPRESSION: Hallux valgus. No fractures P Assessment & Plan - Diagnosis (1) Atrial fibrillation with rapid ventricular response Is this a current diagnosis for this admission?: Yes (2) History of pulmonary embolism Is this a current diagnosis for this admission?: Yes (3) Right lower lobe pneumonia Qualifiers: Pneumonia type: due to unspecified organism Qualified Code(s): J18.1 - Lobar pneumonia, unspecified organism Is this a current diagnosis for this admission?: Yes (4) COPD exacerbation Is this a current diagnosis for this admission?: Yes (5) HTN (hypertension) Qualifiers: Hypertension type: essential hypertension Qualified Code(s): I10 - Essential (primary) hypertension Is this a current diagnosis for this admission?: Yes - Notes Notes: Patient maintaining sinus rhythm. Follow for any rhythm changes. 2D echo results reviewed. It shows normal LVEF. No mitral stenosis or other high-risk features noted. At this point do not think patient would need chronic anticoagulation as atrial fibrillation was transient and could have been just related to bilateral pneumonia. Atrial fibrillation with rapid ventricular response: Continues now in sinus rhythm. Atrial fibrillation possibly related to pneumonia therefore no chronic anticoagulation needed for this purpose but continue chronic anticoagulation for pulmonary embolism. History of pulmonary embolism: Patient currently on chronic anticoagulation. Right lower lobe pneumonia: Continue antibiotic therapy. COPD: Continue bronchodilator therapy, steroid therapy as needed for COPD exacerbation. Hypertension: Recommend liberal controlled for this patient at her age. Patient has been stable from cardiac standpoint for many days. Will therefore sign off. Please reconsult if needed. - Time Time with patient: 15-25 minutes - More than 50% of the time spent coordinating care, discussing management plans with involved caregivers. Management plans discussed with involved personnels. Medical decision making was of moderate to high complexity, patient's has multiple comorbidities. Medications reviewed and adjusted accordingly: Yes
[2018-03-02] MEDS: IMIPENEM/CILASTATIN SODIUM 500 MG in NORMAL SALINE 100 ML IV SCH ×5 (00:01→23:18)
[2018-03-02] MEDS: LEVALBUTEROL HCL NEB 1.25 MG/3 ML AMPUL NEB SCH ×4 (02:23→19:47)
[2018-03-02] MEDS: DIPHENHYDRAMINE HCL 25 MG CAPSULE PO SCH ×2 (05:33→18:39)
[2018-03-02] MEDS: LANSOPRAZOLE 30 MG TAB.RAP.DR PO SCH (05:35)
[2018-03-02] MEDS: DILTIAZEM HCL 120 MG CAP.SR.24H PO SCH ×2 (05:35→17:50)
[2018-03-02 06:53] LABS: HEMATOCRIT 32.3 % (36.0-47.0); HEMOGLOBIN 10.8 g/dL (12.0-15.5); MEAN CORPUSCULAR HEMOGLOBIN 30.9 pg (27.0-33.4); MEAN CORPUSCULAR HGB CONC 33.4 g/dL (32.0-36.0); MEAN CORPUSCULAR VOLUME 93 fl (80-97); PLATELET COUNT 275 10^3/uL (150-450); RED BLOOD COUNT 3.48 10^6/uL (3.72-5.28); RED CELL DISTRIBUTION WIDTH 14.7 % (11.5-14.0); WHITE BLOOD COUNT 15.4 10^3/uL (4.0-10.5)
[2018-03-02 07:08] LABS: ABSOLUTE LYMPHOCYTES# (MANUAL) 1.1 10^3/uL (0.5-4.7); ABSOLUTE MONOCYTES # (MANUAL) 0.6 10^3/uL (0.1-1.4); ABSOLUTE NEUTROPHILS# (MANUAL) 12.9 10^3/uL (1.7-8.2); BAND NEUTROPHILS % (MANUAL) 2 % (3-5); BASOPHILS % (MANUAL) 1 % (0-2); EOSINOPHILS % (MANUAL) 4 % (0-6); LYMPHOCYTES % (MANUAL) 7 % (13-45); MONOCYTES % (MANUAL) 4 % (3-13); SEGMENTED NEUTROPHILS % (MAN) 82 % (42-78); TOTAL CELLS COUNTED 100
[2018-03-02 07:09] LABS: PLATELET COMMENT ADEQUATE; RBC MORPHOLOGY COMMENT NORMO-CYTIC/CHROMIC; TOXIC GRANULATION 1+
[2018-03-02 07:31] LABS: ANION GAP 9 (5-19); BLOOD UREA NITROGEN 15 mg/dL (7-20); CALCIUM 9.1 mg/dL (8.4-10.2); CARBON DIOXIDE 22 mmol/L (22-30); CHLORIDE 112 mmol/L (98-107); GLUCOSE 84 mg/dL (75-110); POTASSIUM 4.7 mmol/L (3.6-5.0)
[2018-03-02] MEDS: GUAIFENESIN 600 MG TABLET.SA PO SCH ×2 (10:29→21:05)
[2018-03-02] MEDS: VALSARTAN 80 MG TABLET PO SCH (10:29)
[2018-03-02] MEDS: CHOLECALCIFEROL (D3) 1,000 UNIT TABLET PO SCH (10:29)
[2018-03-02] MEDS ORDERED: BISACODYL 5 MG TABEC PO PRN (13:02)
--- NOTE | 2018-03-02 13:02 | PDOC PROGRESS REPORT ---
Subjective Progress Note for:: 03/02/18 Subjective:: She was seen by the bedside, she was admitted for the management of severe multifocal bilateral pneumonia, sputum culture grew haemophilus influenza, she is on multiple antibiotic including Levaquin, imipenem, vancomycin, it is time to de-escalate the antibiotic, sputum culture grew only haemophilus there is no objective rationale to continue vancomycin and Levaquin imipenem should suffice. She does not want any Benadryl, she complained of constipation and also right ankle pain, x-ray of the ankle was done there was no fracture essentially negative x-ray. Reason For Visit: RIGHT LOBAR PNEUMONIA Physical Exam Vital Signs: Temp Pulse Resp BP Pulse Ox 97.5 F 96 16 132/60 H 99 03/02/18 08:31 03/02/18 08:31 03/02/18 08:31 03/02/18 08:31 03/02/18 08:31 Intake & Output 03/01/18 03/02/18 03/03/18 06:59 06:59 06:59 Intake Total 1399 2070 Balance 1399 2070 Weight 72 kg 71.3 kg General appearance: PRESENT: no acute distress Eye exam: PRESENT: PERRLA Respiratory exam: PRESENT: rhonchi Cardiovascular exam: PRESENT: +S1, +S2 GI/Abdominal exam: PRESENT: soft Neurological exam: PRESENT: alert Results Laboratory Results: 03/02/18 05:39 03/02/18 05:39 03/02/18 03/02/18 05:39 05:39 WBC 15.4 H RBC 3.48 L Hgb 10.8 L Hct 32.3 L MCV 93 MCH 30.9 MCHC 33.4 RDW 14.7 H Plt Count 275 Seg Neutrophils % Not Reportable Lymphocytes % Not Reportable Monocytes % Not Reportable Eosinophils % Not Reportable Basophils % Not Reportable Absolute Neutrophils Not Reportable Absolute Lymphocytes Not Reportable Absolute Monocytes Not Reportable Absolute Eosinophils Not Reportable Absolute Basophils Not Reportable Sodium 143.0 Potassium 4.7 Chloride 112 H Carbon Dioxide 22 Anion Gap 9 BUN 15 Creatinine 0.86 Est GFR ( Amer) > 60 Est GFR (Non-Af Amer) > 60 Glucose 84 Calcium 9.1 02/28/18 15:35 Sputum Gram Stain - Final 02/28/18 15:35 Sputum Sputum Culture - Final Yeast, Not Lyn Albicans Normal Beth Absent 02/24/18 13:00 Blood Blood Culture - Final NO GROWTH IN 5 DAYS 02/25/18 02/25/18 02/25/18 09:23 09:23 15:40 Creatine Kinase 297 H 70 CK-MB (CK-2) 3.51 Troponin I 0.021 02/25/18 02/25/18 02/25/18 15:40 21:08 21:08 Creatine Kinase 60 CK-MB (CK-2) 1.97 1.93 Troponin I 0.038 0.043 Impressions: Chest CT 02/25/18 00:00 IMPRESSION: Multifocal pneumonia with more focal consolidation in the right lower lobe. Questionable pulmonary nodule in the left upper lobe. Mediastinal adenopathy. Clinical correlation and follow-up is recommended. Chest X-Ray 02/28/18 00:00 IMPRESSION: EXTENSIVE PATCHY AIRSPACE DISEASE, RIGHT GREATER THAN LEFT, WELL SMALL PLEURAL EFFUSIONS. COMPARED TO RECENT CT, THERE IS PROBABLY NO SIGNIFICANT INTERVAL CHANGE. Ankle X-Ray 03/01/18 00:00 IMPRESSION: NO SIGNIFICANT FINDING IN THE RIGHT ANKLE. NO EXPLANATION FOR PAIN. Foot X-Ray 03/01/18 00:00 IMPRESSION: Hallux valgus. No fractures P Assessment & Plan - Diagnosis (1) Multifocal pneumonia Is this a current diagnosis for this admission?: Yes Plan: De-escalate antibiotic, discontinue vancomycin, discontinue Levaquin, continue imipenem (2) Constipation Is this a current diagnosis for this admission?: Yes Plan: Dulcolax (3) Chronic atrial fibrillation Is this a current diagnosis for this admission?: Yes
[2018-03-02] MEDS: RIVAROXABAN 10 MG TABLET PO SCH (17:50)
[2018-03-02] MEDS: ACETAMINOPHEN 325 MG TABLET PO PRN (21:05)
[2018-03-03] MEDS: LEVALBUTEROL HCL NEB 1.25 MG/3 ML AMPUL NEB SCH ×4 (01:50→19:56)
[2018-03-03] MEDS: DILTIAZEM HCL 120 MG CAP.SR.24H PO SCH ×2 (05:06→17:25)
[2018-03-03] MEDS: IMIPENEM/CILASTATIN SODIUM 500 MG in NORMAL SALINE 100 ML IV SCH ×4 (05:06→23:27)
[2018-03-03] MEDS: LANSOPRAZOLE 30 MG TAB.RAP.DR PO SCH (05:07)
[2018-03-03 06:30] LABS: HEMATOCRIT 32.3 % (36.0-47.0); HEMOGLOBIN 11.1 g/dL (12.0-15.5); MEAN CORPUSCULAR HEMOGLOBIN 31.6 pg (27.0-33.4); MEAN CORPUSCULAR HGB CONC 34.2 g/dL (32.0-36.0); MEAN CORPUSCULAR VOLUME 92 fl (80-97); PLATELET COUNT 221 10^3/uL (150-450); RED CELL DISTRIBUTION WIDTH 14.5 % (11.5-14.0); WHITE BLOOD COUNT 11.6 10^3/uL (4.0-10.5)
[2018-03-03 07:00] LABS: ABSOLUTE LYMPHOCYTES# (MANUAL) 1.5 10^3/uL (0.5-4.7); ABSOLUTE MONOCYTES # (MANUAL) 0.5 10^3/uL (0.1-1.4); BAND NEUTROPHILS % (MANUAL) 3 % (3-5); BASOPHILS % (MANUAL) 0 % (0-2); EOSINOPHILS % (MANUAL) 5 % (0-6); LYMPHOCYTES % (MANUAL) 13 % (13-45); METAMYELOCYTES % (MANUAL) 2 % (0); MONOCYTES % (MANUAL) 4 % (3-13); SEGMENTED NEUTROPHILS % (MAN) 72 % (42-78); TOTAL CELLS COUNTED 100
[2018-03-03 07:06] LABS: PLATELET COMMENT ADEQUATE; RBC MORPHOLOGY COMMENT NORMO-CYTIC/CHROMIC; TOXIC GRANULATION SLIGHT; TOXIC VACUOLATION PRESENT
[2018-03-03 07:11] LABS: MYELOCYTES % (MANUAL) 1 % (0)
[2018-03-03 07:21] LABS: ANION GAP 10 (5-19); BLOOD UREA NITROGEN 18 mg/dL (7-20); CALCIUM 9.3 mg/dL (8.4-10.2); CARBON DIOXIDE 21 mmol/L (22-30); CHLORIDE 112 mmol/L (98-107); GLUCOSE 87 mg/dL (75-110); POTASSIUM 4.6 mmol/L (3.6-5.0); SODIUM 142.9 mmol/L (137-145)
[2018-03-03] MEDS: GUAIFENESIN 600 MG TABLET.SA PO SCH ×2 (09:32→21:12)
[2018-03-03] MEDS: VALSARTAN 80 MG TABLET PO SCH (09:32)
[2018-03-03] MEDS: CHOLECALCIFEROL (D3) 1,000 UNIT TABLET PO SCH (09:32)
[2018-03-03] MEDS: NYSTATIN/DEXAMETH/DIPHEN SUSP 120 ML PO SCH ×3 (14:49→21:12)
--- NOTE | 2018-03-03 15:04 | PDOC PROGRESS REPORT ---
Subjective Progress Note for:: 03/03/18 Subjective:: Patient was seen by the bedside, she complained of sore throat, on inspection of the throat there is erythema of the pharynx, otherwise she is doing extremely well compared to yesterday, yesterday the antibiotic was de-escalated , she is presently only on imipenem ,does seem to be appropriate for her the white blood cell is is back to normal, she looks clinically well, on auscultation of her chest there is minimal basilar crackles, she is advised to do more ambulation hopefully discharge home sometime this week Reason For Visit: RIGHT LOBAR PNEUMONIA Physical Exam Vital Signs: Temp Pulse Resp BP Pulse Ox 98.7 F 89 16 138/72 H 96 03/03/18 12:25 03/03/18 14:08 03/03/18 14:08 03/03/18 12:25 03/03/18 12:25 Intake & Output 03/02/18 03/03/18 03/04/18 06:59 06:59 06:59 Intake Total 2069 2026 100 Balance 2069 2026 100 Weight 71.3 kg 71.1 kg General appearance: PRESENT: no acute distress Eye exam: PRESENT: PERRLA Respiratory exam: PRESENT: rales Cardiovascular exam: PRESENT: +S1, +S2 GI/Abdominal exam: PRESENT: soft Neurological exam: PRESENT: alert Results Laboratory Results: 03/03/18 05:53 03/03/18 05:53 03/03/18 03/03/18 05:53 05:53 WBC 11.6 H RBC 3.50 L Hgb 11.1 L Hct 32.3 L MCV 92 MCH 31.6 MCHC 34.2 RDW 14.5 H Plt Count 221 Seg Neutrophils % Not Reportable Lymphocytes % Not Reportable Monocytes % Not Reportable Eosinophils % Not Reportable Basophils % Not Reportable Absolute Neutrophils Not Reportable Absolute Lymphocytes Not Reportable Absolute Monocytes Not Reportable Absolute Eosinophils Not Reportable Absolute Basophils Not Reportable Sodium 142.9 Potassium 4.6 Chloride 112 H Carbon Dioxide 21 L Anion Gap 10 BUN 18 Creatinine 0.81 Est GFR ( Amer) > 60 Est GFR (Non-Af Amer) > 60 Glucose 87 Calcium 9.3 02/25/18 02/25/18 02/25/18 09:23 09:23 15:40 Creatine Kinase 297 H 70 CK-MB (CK-2) 3.51 Troponin I 0.021 02/25/18 02/25/18 02/25/18 15:40 21:08 21:08 Creatine Kinase 60 CK-MB (CK-2) 1.97 1.93 Troponin I 0.038 0.043 Impressions: Chest CT 02/25/18 00:00 IMPRESSION: Multifocal pneumonia with more focal consolidation in the right lower lobe. Questionable pulmonary nodule in the left upper lobe. Mediastinal adenopathy. Clinical correlation and follow-up is recommended. Chest X-Ray 02/28/18 00:00 IMPRESSION: EXTENSIVE PATCHY AIRSPACE DISEASE, RIGHT GREATER THAN LEFT, WELL SMALL PLEURAL EFFUSIONS. COMPARED TO RECENT CT, THERE IS PROBABLY NO SIGNIFICANT INTERVAL CHANGE. Ankle X-Ray 03/01/18 00:00 IMPRESSION: NO SIGNIFICANT FINDING IN THE RIGHT ANKLE. NO EXPLANATION FOR PAIN. Foot X-Ray 03/01/18 00:00 IMPRESSION: Hallux valgus. No fractures P Assessment & Plan - Diagnosis (1) Multifocal pneumonia Is this a current diagnosis for this admission?: Yes Plan: Continue IV antibiotic, continue other treatment (2) Constipation Is this a current diagnosis for this admission?: Yes (3) Chronic atrial fibrillation Is this a current diagnosis for this admission?: Yes (4) Sore throat Is this a current diagnosis for this admission?: Yes Plan: Use Magic wash swish and spit
[2018-03-03] MEDS: RIVAROXABAN 10 MG TABLET PO SCH (17:26)
[2018-03-04] MEDS: LEVALBUTEROL HCL NEB 1.25 MG/3 ML AMPUL NEB SCH ×4 (02:53→20:24)
[2018-03-04] MEDS: DILTIAZEM HCL 120 MG CAP.SR.24H PO SCH ×2 (05:57→18:32)
[2018-03-04] MEDS: LANSOPRAZOLE 30 MG TAB.RAP.DR PO SCH (05:58)
[2018-03-04] MEDS: IMIPENEM/CILASTATIN SODIUM 500 MG in NORMAL SALINE 100 ML IV SCH ×4 (05:58→23:42)
[2018-03-04 06:34] LABS: HEMATOCRIT 33.5 % (36.0-47.0); HEMOGLOBIN 11.1 g/dL (12.0-15.5); MEAN CORPUSCULAR HEMOGLOBIN 30.6 pg (27.0-33.4); MEAN CORPUSCULAR VOLUME 93 fl (80-97); PLATELET COUNT 288 10^3/uL (150-450); RED BLOOD COUNT 3.61 10^6/uL (3.72-5.28); RED CELL DISTRIBUTION WIDTH 14.7 % (11.5-14.0); WHITE BLOOD COUNT 11.7 10^3/uL (4.0-10.5)
[2018-03-04 06:47] LABS: ANION GAP 8 (5-19); BLOOD UREA NITROGEN 16 mg/dL (7-20); CALCIUM 9.7 mg/dL (8.4-10.2); CARBON DIOXIDE 27 mmol/L (22-30); CHLORIDE 107 mmol/L (98-107); GLUCOSE 86 mg/dL (75-110); POTASSIUM 5.1 mmol/L (3.6-5.0); SODIUM 141.8 mmol/L (137-145)
[2018-03-04 07:39] LABS: ABSOLUTE LYMPHOCYTES# (MANUAL) 0.9 10^3/uL (0.5-4.7); ABSOLUTE MONOCYTES # (MANUAL) 0.8 10^3/uL (0.1-1.4); ABSOLUTE NEUTROPHILS# (MANUAL) 9.1 10^3/uL (1.7-8.2); BAND NEUTROPHILS % (MANUAL) 4 % (3-5); BASOPHILS % (MANUAL) 0 % (0-2); EOSINOPHILS % (MANUAL) 7 % (0-6); LYMPHOCYTES % (MANUAL) 8 % (13-45); METAMYELOCYTES % (MANUAL) 2 % (0); MONOCYTES % (MANUAL) 7 % (3-13); SEGMENTED NEUTROPHILS % (MAN) 72 % (42-78); TOTAL CELLS COUNTED 100
[2018-03-04 07:40] LABS: PLATELET COMMENT ADEQUATE; RBC MORPHOLOGY COMMENT NORMO-CYTIC/CHROMIC; TOXIC GRANULATION SLIGHT
[2018-03-04] MEDS: GUAIFENESIN 600 MG TABLET.SA PO SCH ×2 (09:34→21:19)
[2018-03-04] MEDS: VALSARTAN 80 MG TABLET PO SCH (09:35)
[2018-03-04] MEDS: CHOLECALCIFEROL (D3) 1,000 UNIT TABLET PO SCH (09:35)
[2018-03-04] MEDS: NYSTATIN/DEXAMETH/DIPHEN SUSP 120 ML PO SCH ×4 (09:36→21:20)
--- NOTE | 2018-03-04 13:26 | PDOC PROGRESS REPORT ---
Subjective Progress Note for:: 03/04/18 Subjective:: Patient is currently doing well Denied any fever no chills Patient's white count is also getting better Reason For Visit: RIGHT LOBAR PNEUMONIA Physical Exam Vital Signs: Temp Pulse Resp BP Pulse Ox 99.1 F 80 20 128/72 H 94 03/04/18 11:42 03/04/18 11:42 03/04/18 11:42 03/04/18 11:42 03/04/18 11:42 Intake & Output 03/03/18 03/04/18 03/05/18 06:59 06:59 06:59 Intake Total 2026 1273 Balance 2026 1273 Weight 71.1 kg 68.6 kg General appearance: PRESENT: no acute distress, well-developed, well-nourished Head exam: PRESENT: atraumatic, normocephalic Eye exam: PRESENT: conjunctiva pink, EOMI, PERRLA. ABSENT: scleral icterus Ear exam: PRESENT: normal external ear exam Mouth exam: PRESENT: moist, tongue midline Neck exam: PRESENT: full ROM. ABSENT: carotid bruit, JVD, lymphadenopathy, thyromegaly Respiratory exam: PRESENT: clear to auscultation stephanie Cardiovascular exam: PRESENT: RRR. ABSENT: diastolic murmur, rubs, systolic murmur Pulses: PRESENT: normal dorsalis pedis pul, +2 pedal pulses bilateral Vascular exam: PRESENT: normal capillary refill GI/Abdominal exam: PRESENT: normal bowel sounds, soft. ABSENT: distended, guarding, mass, organolmegaly, rebound, tenderness Rectal exam: PRESENT: deferred Musculoskeletal exam: PRESENT: ambulatory Neurological exam: PRESENT: alert, awake, oriented to person, oriented to place , oriented to time, oriented to situation, CN II-XII grossly intact. ABSENT: motor sensory deficit Psychiatric exam: PRESENT: appropriate affect, normal mood. ABSENT: homicidal ideation, suicidal ideation Skin exam: PRESENT: dry, intact, warm. ABSENT: cyanosis, rash Results Laboratory Results: 03/04/18 05:58 03/04/18 05:58 03/04/18 03/04/18 05:58 05:58 WBC 11.7 H RBC 3.61 L Hgb 11.1 L Hct 33.5 L MCV 93 MCH 30.6 MCHC 33.0 RDW 14.7 H Plt Count 288 Seg Neutrophils % Not Reportable Lymphocytes % Not Reportable Monocytes % Not Reportable Eosinophils % Not Reportable Basophils % Not Reportable Absolute Neutrophils Not Reportable Absolute Lymphocytes Not Reportable Absolute Monocytes Not Reportable Absolute Eosinophils Not Reportable Absolute Basophils Not Reportable Sodium 141.8 Potassium 5.1 H Chloride 107 Carbon Dioxide 27 Anion Gap 8 BUN 16 Creatinine 0.83 Est GFR ( Amer) > 60 Est GFR (Non-Af Amer) > 60 Glucose 86 Calcium 9.7 02/25/18 02/25/18 02/25/18 09:23 09:23 15:40 Creatine Kinase 297 H 70 CK-MB (CK-2) 3.51 Troponin I 0.021 02/25/18 02/25/18 02/25/18 15:40 21:08 21:08 Creatine Kinase 60 CK-MB (CK-2) 1.97 1.93 Troponin I 0.038 0.043 Impressions: Chest CT 02/25/18 00:00 IMPRESSION: Multifocal pneumonia with more focal consolidation in the right lower lobe. Questionable pulmonary nodule in the left upper lobe. Mediastinal adenopathy. Clinical correlation and follow-up is recommended. Chest X-Ray 02/28/18 00:00 IMPRESSION: EXTENSIVE PATCHY AIRSPACE DISEASE, RIGHT GREATER THAN LEFT, WELL SMALL PLEURAL EFFUSIONS. COMPARED TO RECENT CT, THERE IS PROBABLY NO SIGNIFICANT INTERVAL CHANGE. Ankle X-Ray 03/01/18 00:00 IMPRESSION: NO SIGNIFICANT FINDING IN THE RIGHT ANKLE. NO EXPLANATION FOR PAIN. Foot X-Ray 03/01/18 00:00 IMPRESSION: Hallux valgus. No fractures P Assessment & Plan - Diagnosis (1) Right lower lobe pneumonia Qualifiers: Pneumonia type: due to unspecified organism Qualified Code(s): J18.1 - Lobar pneumonia, unspecified organism Is this a current diagnosis for this admission?: Yes Plan: Continues to IV antibiotic (2) Chronic atrial fibrillation Is this a current diagnosis for this admission?: Yes Plan: Currently all stable with the p.o. Cardizem's and Xarelto (3) History of pulmonary embolism Is this a current diagnosis for this admission?: Yes Plan: Patient had a lifelong Xarelto (4) COPD exacerbation Is this a current diagnosis for this admission?: Yes Plan: Continues to nebulizer treatments Denies some mild pleuritic chest pains will get the CT of the chest (5) HTN (hypertension) Qualifiers: Hypertension type: essential hypertension Qualified Code(s): I10 - Essential (primary) hypertension Is this a current diagnosis for this admission?: Yes Plan: Continues to current medications (6) Hypothyroidism Qualifiers: Hypothyroidism type: unspecified Qualified Code(s): E03.9 - Hypothyroidism , unspecified Is this a current diagnosis for this admission?: Yes Plan: Check a TSH (7) Chronic bronchiectasis not affecting current episode of care Is this a current diagnosis for this admission?: Yes Plan: Continues to nebulizer treatments - Time Time Spent with patient: 15-24 minutes Medications reviewed and adjusted accordingly: Yes Anticipated discharge: Home Within: Other - Inpatient Certification Medical Necessity: Need Close Monitoring Due to Risk of Patient Decompensation, Need for IV Antibiotics Post Hospital Care: D/C Sound Engineer Audio Control Documentation - Plan Summary Plan Summary: See other MD order
[2018-03-04 15:21] LABS: PATH REVIEW PATHOLOGIST REVIEWED
[2018-03-04] MEDS: RIVAROXABAN 10 MG TABLET PO SCH (18:31)
--- NOTE | 2018-03-04 18:48 | RADIOLOGY REPORT (SQ) ---
EXAM DESCRIPTION: CHEST 2 VIEWS COMPLETED DATE/TIME: 03/04/2018 6:32 pm REASON FOR STUDY: Pneumonia COMPARISON: 02/28/2018 EXAM PARAMETERS: NUMBER OF VIEWS: two views TECHNIQUE: Digital Frontal and Lateral radiographic views of the chest acquired. RADIATION DOSE: NA LIMITATIONS: none FINDINGS: LUNGS AND PLEURA: Minimal pleural effusions are suggested. Patchy opacification in both l ower lobes, right more than left. MEDIASTINUM AND HILAR STRUCTURES: No masses or contour abnormalities. HEART AND VASCULAR STRUCTURES: Heart normal size. No evidence for failure. BONES: No acute findings. HARDWARE: None in the chest. OTHER: No other significant finding. IMPRESSION: Right lower lobe pneumonia. Cannot exclude a minimal left lower lobe pneumonia. No sig nificant interval change. Small pleural effusions are suggested. TECHNICAL DOCUMENTATION: JOB ID: [id number] [employer]- All Rights Reserved Reading location - IP/workstation name: [email or web address]
[2018-03-05] MEDS: LEVALBUTEROL HCL NEB 1.25 MG/3 ML AMPUL NEB SCH ×4 (01:54→19:49)
[2018-03-05] MEDS: IMIPENEM/CILASTATIN SODIUM 500 MG in NORMAL SALINE 100 ML IV SCH ×2 (06:00→13:40)
[2018-03-05] MEDS: DILTIAZEM HCL 120 MG CAP.SR.24H PO SCH ×2 (06:01→17:19)
[2018-03-05] MEDS: LANSOPRAZOLE 30 MG TAB.RAP.DR PO SCH (06:01)
[2018-03-05 06:12] LABS: ABSOLUTE BASOPHILS # (AUTO) 0.1 10^3/uL (0.0-0.2); ABSOLUTE EOSINOPHILS # (AUTO) 0.4 10^3/uL (0.0-0.6); ABSOLUTE LYMPHOCYTES (AUTO) 1.2 10^3/uL (0.5-4.7); ABSOLUTE MONOCYTES (AUTO) 0.6 10^3/uL (0.1-1.4); ABSOLUTE NEUT (AUTO) 9.6 10^3/uL (1.7-8.2); BASOPHILS % (AUTO) 0.5 % (0-2); EOSINOPHILS % (AUTO) 3.7 % (0-6); HEMATOCRIT 35.6 % (36.0-47.0); MEAN CORPUSCULAR HEMOGLOBIN 30.9 pg (27.0-33.4); MEAN CORPUSCULAR HGB CONC 33.7 g/dL (32.0-36.0); MEAN CORPUSCULAR VOLUME 92 fl (80-97); MONOCYTES % (AUTO) 5.3 % (3-13); PLATELET COUNT 363 10^3/uL (150-450); RED BLOOD COUNT 3.89 10^6/uL (3.72-5.28); RED CELL DISTRIBUTION WIDTH 14.5 % (11.5-14.0); SEGMENTED NEUTROPHILS % (AUTO) 80.5 % (42-78); TOTAL CELLS COUNTED % (AUTO) 100 %; WHITE BLOOD COUNT 11.9 10^3/uL (4.0-10.5)
[2018-03-05 06:42] LABS: ANION GAP 6 (5-19); BLOOD UREA NITROGEN 20 mg/dL (7-20); CALCIUM 10.2 mg/dL (8.4-10.2); CARBON DIOXIDE 28 mmol/L (22-30); CHLORIDE 107 mmol/L (98-107); GLUCOSE 110 mg/dL (75-110); POTASSIUM 4.5 mmol/L (3.6-5.0); SODIUM 141.1 mmol/L (137-145)
[2018-03-05] MEDS: CHOLECALCIFEROL (D3) 1,000 UNIT TABLET PO SCH (10:01)
[2018-03-05] MEDS: VALSARTAN 80 MG TABLET PO SCH (10:01)
[2018-03-05] MEDS: DOXYCYCLINE HYCLATE 100 MG TABLET PO SCH ×2 (10:01→21:21)
[2018-03-05] MEDS: GUAIFENESIN 600 MG TABLET.SA PO SCH ×2 (10:01→21:22)
[2018-03-05] MEDS: NYSTATIN/DEXAMETH/DIPHEN SUSP 120 ML PO SCH ×4 (10:02→21:24)
--- NOTE | 2018-03-05 11:51 | PDOC PROGRESS REPORT ---
Subjective Progress Note for:: 03/05/18 Subjective:: Patient is currently doing well Denied any fever no chills Patient's white count is also getting better Reason For Visit: RIGHT LOBAR PNEUMONIA Physical Exam Vital Signs: Temp Pulse Resp BP Pulse Ox 98.6 F 96 14 132/83 H 93 03/05/18 07:28 03/05/18 09:07 03/05/18 09:07 03/05/18 07:28 03/05/18 09:07 Intake & Output 03/04/18 03/05/18 03/06/18 06:59 06:59 06:59 Intake Total 1273 1721 100 Balance 1273 1721 100 Weight 68.6 kg 67.7 kg General appearance: PRESENT: no acute distress, well-developed, well-nourished Head exam: PRESENT: atraumatic, normocephalic Eye exam: PRESENT: conjunctiva pink, EOMI, PERRLA. ABSENT: scleral icterus Ear exam: PRESENT: normal external ear exam Mouth exam: PRESENT: moist, tongue midline Neck exam: PRESENT: full ROM. ABSENT: carotid bruit, JVD, lymphadenopathy, thyromegaly Respiratory exam: PRESENT: clear to auscultation stephanie Cardiovascular exam: PRESENT: RRR. ABSENT: diastolic murmur, rubs, systolic murmur Pulses: PRESENT: normal dorsalis pedis pul, +2 pedal pulses bilateral Vascular exam: PRESENT: normal capillary refill GI/Abdominal exam: PRESENT: normal bowel sounds, soft. ABSENT: distended, guarding, mass, organolmegaly, rebound, tenderness Rectal exam: PRESENT: deferred Extremities exam: ABSENT: pedal edema Musculoskeletal exam: PRESENT: ambulatory Neurological exam: PRESENT: alert, awake, oriented to person, oriented to place , oriented to time, oriented to situation, CN II-XII grossly intact. ABSENT: motor sensory deficit Psychiatric exam: PRESENT: appropriate affect, normal mood. ABSENT: homicidal ideation, suicidal ideation Skin exam: PRESENT: dry, intact, warm. ABSENT: cyanosis, rash Results Laboratory Results: 03/05/18 06:02 03/05/18 06:02 03/05/18 03/05/18 06:02 06:02 WBC 11.9 H RBC 3.89 Hgb 12.0 Hct 35.6 L MCV 92 MCH 30.9 MCHC 33.7 RDW 14.5 H Plt Count 363 Seg Neutrophils % 80.5 H Lymphocytes % 10.0 L Monocytes % 5.3 Eosinophils % 3.7 Basophils % 0.5 Absolute Neutrophils 9.6 H Absolute Lymphocytes 1.2 Absolute Monocytes 0.6 Absolute Eosinophils 0.4 Absolute Basophils 0.1 Sodium 141.1 Potassium 4.5 Chloride 107 Carbon Dioxide 28 Anion Gap 6 BUN 20 Creatinine 0.92 Est GFR ( Amer) > 60 Est GFR (Non-Af Amer) 58 L Glucose 110 Calcium 10.2 02/25/18 02/25/18 02/25/18 09:23 09:23 15:40 Creatine Kinase 297 H 70 CK-MB (CK-2) 3.51 Troponin I 0.021 02/25/18 02/25/18 02/25/18 15:40 21:08 21:08 Creatine Kinase 60 CK-MB (CK-2) 1.97 1.93 Troponin I 0.038 0.043 Impressions: Chest CT 02/25/18 00:00 IMPRESSION: Multifocal pneumonia with more focal consolidation in the right lower lobe. Questionable pulmonary nodule in the left upper lobe. Mediastinal adenopathy. Clinical correlation and follow-up is recommended. Ankle X-Ray 03/01/18 00:00 IMPRESSION: NO SIGNIFICANT FINDING IN THE RIGHT ANKLE. NO EXPLANATION FOR PAIN. Foot X-Ray 03/01/18 00:00 IMPRESSION: Hallux valgus. No fractures P Chest X-Ray 03/04/18 00:00 IMPRESSION: Right lower lobe pneumonia. Cannot exclude a minimal left lower lobe pneumonia. No significant interval change. Small pleural effusions are suggested. Assessment & Plan - Diagnosis (1) Right lower lobe pneumonia Qualifiers: Pneumonia type: due to unspecified organism Qualified Code(s): J18.1 - Lobar pneumonia, unspecified organism Is this a current diagnosis for this admission?: Yes Plan: Now we switched to the IV to the p.o. antibiotic (2) Chronic atrial fibrillation Is this a current diagnosis for this admission?: Yes Plan: Currently all stable with the p.o. Cardizem's and Xarelto (3) History of pulmonary embolism Is this a current diagnosis for this admission?: Yes Plan: Patient had a lifelong Xarelto (4) COPD exacerbation Is this a current diagnosis for this admission?: Yes Plan: Continues to nebulizer treatments Denies some mild pleuritic chest pains will get the CT of the chest (5) HTN (hypertension) Qualifiers: Hypertension type: essential hypertension Qualified Code(s): I10 - Essential (primary) hypertension Is this a current diagnosis for this admission?: Yes Plan: Continues to current medications (6) Hypothyroidism Qualifiers: Hypothyroidism type: unspecified Qualified Code(s): E03.9 - Hypothyroidism , unspecified Is this a current diagnosis for this admission?: Yes Plan: Check a TSH (7) Chronic bronchiectasis not affecting current episode of care Is this a current diagnosis for this admission?: Yes Plan: Continues to nebulizer treatments - Time Time Spent with patient: 15-24 minutes Medications reviewed and adjusted accordingly: Yes Anticipated discharge: Home Within: within 24 hours - Inpatient Certification Medical Necessity: Need Close Monitoring Due to Risk of Patient Decompensation Post Hospital Care: D/C Exercise Equipment Repair Technician Documentation - Plan Summary Plan Summary: If the patient's remained stable with the p.o. antibiotics and afebrile hopefully discharge within the next 48 hours
[2018-03-05] MEDS: RIVAROXABAN 10 MG TABLET PO SCH (17:19)
[2018-03-05] MEDS ORDERED: IMIPENEM/CILASTATIN SODIUM 500 MG in NORMAL SALINE 100 ML IV SCH (18:00)
[2018-03-05] MEDS ORDERED: LANSOPRAZOLE 30 MG TAB.RAP.DR PO ONE (22:45)
[2018-03-06] MEDS: LEVALBUTEROL HCL NEB 1.25 MG/3 ML AMPUL NEB SCH ×4 (01:39→20:51)
[2018-03-06] MEDS: LANSOPRAZOLE 30 MG TAB.RAP.DR PO SCH (05:50)
[2018-03-06] MEDS: DILTIAZEM HCL 120 MG CAP.SR.24H PO SCH ×2 (05:50→17:03)
[2018-03-06 05:56] LABS: ABSOLUTE EOSINOPHILS # (AUTO) 0.5 10^3/uL (0.0-0.6); ABSOLUTE LYMPHOCYTES (AUTO) 1.5 10^3/uL (0.5-4.7); ABSOLUTE MONOCYTES (AUTO) 0.5 10^3/uL (0.1-1.4); ABSOLUTE NEUT (AUTO) 7.6 10^3/uL (1.7-8.2); BASOPHILS % (AUTO) 0.4 % (0-2); EOSINOPHILS % (AUTO) 4.5 % (0-6); HEMATOCRIT 34.4 % (36.0-47.0); HEMOGLOBIN 11.6 g/dL (12.0-15.5); LYMPHOCYTES % (AUTO) 14.6 % (13-45); MEAN CORPUSCULAR HEMOGLOBIN 30.8 pg (27.0-33.4); MEAN CORPUSCULAR HGB CONC 33.8 g/dL (32.0-36.0); MEAN CORPUSCULAR VOLUME 91 fl (80-97); MONOCYTES % (AUTO) 5.3 % (3-13); PLATELET COUNT 395 10^3/uL (150-450); RED BLOOD COUNT 3.79 10^6/uL (3.72-5.28); RED CELL DISTRIBUTION WIDTH 14.3 % (11.5-14.0); SEGMENTED NEUTROPHILS % (AUTO) 75.2 % (42-78); TOTAL CELLS COUNTED % (AUTO) 100 %; WHITE BLOOD COUNT 10.2 10^3/uL (4.0-10.5)
[2018-03-06 06:20] LABS: ANION GAP 9 (5-19); BLOOD UREA NITROGEN 20 mg/dL (7-20); CARBON DIOXIDE 28 mmol/L (22-30); CHLORIDE 105 mmol/L (98-107); GLUCOSE 89 mg/dL (75-110); POTASSIUM 4.9 mmol/L (3.6-5.0); SODIUM 141.6 mmol/L (137-145)
[2018-03-06] MEDS ORDERED: MAG HYDROX/AL HYDROX/SIMETH SUSP 30 ML UDCUP PO PRN (08:09)
[2018-03-06] MEDS: GUAIFENESIN 600 MG TABLET.SA PO SCH ×2 (09:25→23:01)
[2018-03-06] MEDS: VALSARTAN 80 MG TABLET PO SCH (09:25)
[2018-03-06] MEDS: DOXYCYCLINE HYCLATE 100 MG TABLET PO SCH ×2 (09:26→23:01)
[2018-03-06] MEDS: CHOLECALCIFEROL (D3) 1,000 UNIT TABLET PO SCH (09:26)
[2018-03-06] MEDS: NYSTATIN/DEXAMETH/DIPHEN SUSP 120 ML PO SCH ×4 (09:28→23:02)
--- NOTE | 2018-03-06 10:17 | PDOC PROGRESS REPORT ---
Subjective Progress Note for:: 03/06/18 Subjective:: Patient is currently doing much better Patient's denied any cough or congestion is anymore Patient is complaining some heartburn No chest pain no short of breath Reason For Visit: RIGHT LOBAR PNEUMONIA Physical Exam Vital Signs: Temp Pulse Resp BP Pulse Ox 98.2 F 83 18 145/79 H 95 03/06/18 07:42 03/06/18 07:42 03/06/18 07:42 03/06/18 07:42 03/06/18 07:42 Intake & Output 03/05/18 03/06/18 03/07/18 06:59 06:59 06:59 Intake Total 1721 737 Balance 1721 737 Weight 67.7 kg 67.9 kg General appearance: PRESENT: no acute distress, well-developed, well-nourished Head exam: PRESENT: atraumatic, normocephalic Eye exam: PRESENT: conjunctiva pink, EOMI, PERRLA. ABSENT: scleral icterus Ear exam: PRESENT: normal external ear exam Mouth exam: PRESENT: moist, tongue midline Neck exam: PRESENT: full ROM. ABSENT: carotid bruit, JVD, lymphadenopathy, thyromegaly Respiratory exam: PRESENT: clear to auscultation stephanie Cardiovascular exam: PRESENT: RRR. ABSENT: diastolic murmur, rubs, systolic murmur Pulses: PRESENT: normal dorsalis pedis pul, +2 pedal pulses bilateral Vascular exam: PRESENT: normal capillary refill GI/Abdominal exam: PRESENT: normal bowel sounds, soft. ABSENT: distended, guarding, mass, organolmegaly, rebound, tenderness Rectal exam: PRESENT: deferred Extremities exam: ABSENT: pedal edema Musculoskeletal exam: PRESENT: ambulatory Neurological exam: PRESENT: alert, awake, oriented to person, oriented to place , oriented to time, oriented to situation, CN II-XII grossly intact. ABSENT: motor sensory deficit Psychiatric exam: PRESENT: appropriate affect, normal mood. ABSENT: homicidal ideation, suicidal ideation Skin exam: PRESENT: dry, intact, warm. ABSENT: cyanosis, rash Results Laboratory Results: 03/06/18 05:26 03/06/18 05:26 03/06/18 03/06/18 05:26 05:26 WBC 10.2 RBC 3.79 Hgb 11.6 L Hct 34.4 L MCV 91 MCH 30.8 MCHC 33.8 RDW 14.3 H Plt Count 395 Seg Neutrophils % 75.2 Lymphocytes % 14.6 Monocytes % 5.3 Eosinophils % 4.5 Basophils % 0.4 Absolute Neutrophils 7.6 Absolute Lymphocytes 1.5 Absolute Monocytes 0.5 Absolute Eosinophils 0.5 Absolute Basophils 0.0 Sodium 141.6 Potassium 4.9 Chloride 105 Carbon Dioxide 28 Anion Gap 9 BUN 20 Creatinine 0.89 Est GFR ( Amer) > 60 Est GFR (Non-Af Amer) > 60 Glucose 89 Calcium 10.0 02/25/18 02/25/18 02/25/18 09:23 09:23 15:40 Creatine Kinase 297 H 70 CK-MB (CK-2) 3.51 Troponin I 0.021 02/25/18 02/25/18 02/25/18 15:40 21:08 21:08 Creatine Kinase 60 CK-MB (CK-2) 1.97 1.93 Troponin I 0.038 0.043 Impressions: Chest CT 02/25/18 00:00 IMPRESSION: Multifocal pneumonia with more focal consolidation in the right lower lobe. Questionable pulmonary nodule in the left upper lobe. Mediastinal adenopathy. Clinical correlation and follow-up is recommended. Ankle X-Ray 03/01/18 00:00 IMPRESSION: NO SIGNIFICANT FINDING IN THE RIGHT ANKLE. NO EXPLANATION FOR PAIN. Foot X-Ray 03/01/18 00:00 IMPRESSION: Hallux valgus. No fractures P Chest X-Ray 03/04/18 00:00 IMPRESSION: Right lower lobe pneumonia. Cannot exclude a minimal left lower lobe pneumonia. No significant interval change. Small pleural effusions are suggested. Assessment & Plan - Diagnosis (1) Right lower lobe pneumonia Qualifiers: Pneumonia type: due to unspecified organism Qualified Code(s): J18.1 - Lobar pneumonia, unspecified organism Is this a current diagnosis for this admission?: Yes Plan: Continues to doxycycline p.o. (2) Chronic atrial fibrillation Is this a current diagnosis for this admission?: Yes Plan: Currently all stable with the p.o. Cardizem's and Xarelto (3) History of pulmonary embolism Is this a current diagnosis for this admission?: Yes Plan: Patient had a lifelong Xarelto (4) COPD exacerbation Is this a current diagnosis for this admission?: Yes Plan: Continues to nebulizer treatments Denies some mild pleuritic chest pains will get the CT of the chest (5) HTN (hypertension) Qualifiers: Hypertension type: essential hypertension Qualified Code(s): I10 - Essential (primary) hypertension Is this a current diagnosis for this admission?: Yes Plan: Continues to current medications (6) Hypothyroidism Qualifiers: Hypothyroidism type: unspecified Qualified Code(s): E03.9 - Hypothyroidism , unspecified Is this a current diagnosis for this admission?: Yes Plan: Check a TSH (7) Chronic bronchiectasis not affecting current episode of care Is this a current diagnosis for this admission?: Yes Plan: Continues to nebulizer treatments - Time Time Spent with patient: 15-24 minutes Medications reviewed and adjusted accordingly: Yes Anticipated discharge: Home, Home with Homehealth Within: within 24 hours - Inpatient Certification Medical Necessity: Need Close Monitoring Due to Risk of Patient Decompensation Post Hospital Care: D/C Senior Data Scientist Documentation - Plan Summary Plan Summary: Continues to Maalox as needed continues the PPI continues to p.o. antibiotic if the patient has remained afebrile plan to discharge tomorrow with home health
[2018-03-06] MEDS: RIVAROXABAN 10 MG TABLET PO SCH (17:03)
--- NOTE | 2018-03-06 19:42 | RADIOLOGY REPORT (SQ) ---
EXAM DESCRIPTION: CHEST 2 VIEWS COMPLETED DATE/TIME: 03/06/2018 6:57 pm REASON FOR STUDY: Pneumonia COMPARISON: 03/04/2018 EXAM PARAMETERS: NUMBER OF VIEWS: two views TECHNIQUE: Digital Frontal and Lateral radiographic views of the chest acquired. RADIATION DOSE: NA LIMITATIONS: none FINDINGS: LUNGS AND PLEURA: Persistent opacification in the right base. Mild, improved opacificatio n in the left base. MEDIASTINUM AND HILAR STRUCTURES: No masses or contour abnormalities. HEART AND VASCULAR STRUCTURES: Heart normal size. No evidence for failure. BONES: No acute findings. HARDWARE: None in the chest. OTHER: No other significant finding. IMPRESSION: Right lower lobe pneumonia shows no significant change. There appears to be improvement in the left base. TECHNICAL DOCUMENTATION: JOB ID: [id number] [employer]- All Rights Reserved Reading location - IP/workstation name: [email or web address]
[2018-03-07] MEDS: LEVALBUTEROL HCL NEB 1.25 MG/3 ML AMPUL NEB SCH ×2 (02:05→08:49)
[2018-03-07] MEDS: DILTIAZEM HCL 120 MG CAP.SR.24H PO SCH (05:32)
[2018-03-07] MEDS: LANSOPRAZOLE 30 MG TAB.RAP.DR PO SCH (05:32)
[2018-03-07] MEDS: VALSARTAN 80 MG TABLET PO SCH (09:23)
[2018-03-07] MEDS: NYSTATIN/DEXAMETH/DIPHEN SUSP 120 ML PO SCH (09:23)
[2018-03-07] MEDS: CHOLECALCIFEROL (D3) 1,000 UNIT TABLET PO SCH (09:25)
[2018-03-07] MEDS: DOXYCYCLINE HYCLATE 100 MG TABLET PO SCH (09:25)
[2018-03-07] MEDS: GUAIFENESIN 600 MG TABLET.SA PO SCH (09:25)
[2018-03-07 10:35] VITALS: BP 142/72
--- NOTE | 2018-03-07 13:08 | PDOC DISCHARGE SUMMARY ---
General - Admit/Disc Date/PCP Admission Date/Primary Care Provider: 02/24/18 12:26 RALPH PADILLA MD Discharge Date: 03/07/18 - Discharge Diagnosis (1) Right lower lobe pneumonia Is this a current diagnosis for this admission?: Yes Summary: Patient is currently afebrile white count is normal will continues to be on doxycycline for 7-10 days repeat the chest x-ray and follow with the pulmonary (2) Chronic atrial fibrillation Is this a current diagnosis for this admission?: Yes Summary: Currently continues to Cardizem to twice a day and continues Xarelto and currently DC'd the beta claritza (3) History of pulmonary embolism Is this a current diagnosis for this admission?: Yes Summary: Continues Xarelto once a day (4) COPD exacerbation Is this a current diagnosis for this admission?: Yes Summary: Some nebulizer treatments and inhalers (5) HTN (hypertension) Is this a current diagnosis for this admission?: Yes Summary: Currently all stable (6) Hypothyroidism Is this a current diagnosis for this admission?: Yes Summary: Continues to current medications (7) Chronic bronchiectasis not affecting current episode of care Is this a current diagnosis for this admission?: Yes Summary: Continues to Mucinex and nebulizer treatments - Additional Information Resuscitation Status: Full Code Discharge Diet: Cardiac Discharge Activity: Activity As Tolerated Prescriptions: Diltiazem HCl [Cardizem Cd 120 mg Capsule] 120 mg PO Q12A #60 cap.sr.24h Doxycycline Hyclate [Vibramycin 100 mg Tablet] 100 mg PO Q12 #20 tablet Guaifenesin [Mucinex Sr 600 mg Tablet.sa] 600 mg PO Q12 #60 tablet.sa Levalbuterol HCl [Xopenex Neb 1.25 mg/3 ml Ampul] 1.25 mg NEB RTQ6 #120 vial.neb Home Medications: Levothyroxine Sodium 75 mcg PO QPM 06/19/11 Rivaroxaban [Xarelto] 20 mg PO DAILY 08/05/13 Acetaminophen [Tylenol Arthritis 650 mg Tablet] 650 mg PO Q12HP PRN 02/24/18 Acetylcysteine [NAC 600 mg Capsule] 600 mg PO DAILY 02/24/18 Albuterol Sulfate [Ventolin Hfa] 1 puff IH DAILYP PRN 02/24/18 Alendronate Sodium [Fosamax] 70 mg PO Q7D 02/24/18 Cetirizine HCl [Zyrtec 10 mg Tablet] 10 mg PO DAILYP PRN 02/24/18 Cholecalciferol (Vitamin D3) [Vitamin D3 1000 Unit Tablet] 1,000 unit PO DAILY 02/24/18 Docusate Sodium [Colace 100 mg Capsule] 100 mg PO DAILYP PRN 02/24/18 Esomeprazole Magnesium [Nexium] 40 mg PO DAILY 02/24/18 Umeclidinium Brm/Vilanterol Tr [Anoro Ellipta 62.5-25 Mcg INH] 1 puff IH DAILY 02/24/18 Valsartan [Diovan 80 mg Tablet] 80 mg PO DAILY 02/24/18 Diltiazem HCl [Cardizem Cd 120 mg Capsule] 120 mg PO Q12A #60 cap.sr.24h Doxycycline Hyclate [Vibramycin 100 mg Tablet] 100 mg PO Q12 #20 tablet Guaifenesin [Mucinex Sr 600 mg Tablet.sa] 600 mg PO Q12 #60 tablet.sa 03/07/18 Levalbuterol HCl [Xopenex Neb 1.25 mg/3 ml Ampul] 1.25 mg NEB RTQ6 #120 vial.neb 03/07/18 History of Present Illness History of Present Illness: SAADIA HORNER is a 82 year old female This is an 82-year-old female admitting in the hospital because of shortness of the breath cough congestion and the fever and the patient was diagnosed with a bilateral pneumonia more on the right side Hospital Course Hospital Course: Patient was admitting to the hospital with a right-sided pneumonia and a left- sided pneumonia COPD and patients treated with IV Primaxin since in the aq ' and that pulmonary was consulted Patient also underwent for the atrial fibrillation with rapid ventricular response and has required a Cardizem drips and cardiology was consulted Patients was back to the p.o. Cardizem's and DC the beta-claritza continues Xarelto And underwent for the CT angiogram was from no PE but have a significant pneumonia in the both side more than the right Patient was switch to the p.o. antibiotic chest x-ray is also improving patient' s. Much better no fever no cough white count is also normal patient's mood with the physical therapy without any problems At this point patient is pretty much can a maximum benefit with the IV antibiotic which was finished a 10 day course and patient's discharge p.o. antibiotic for another 10 days Discussed with the patient and the family if there is increasing any short of breath any fever any chills any increasing any chest pains following the ER otherwise follow-up with pulmonary in 1 week and follow in my office and will repeat the chest x-ray Patient's currently doing much better no nursing concern patient's denied any other concerns and wants to go home Discussed with the daughter regarding the patient's current condition and follow outpatient Physical Exam Vital Signs: Temp Pulse Resp BP Pulse Ox 98.6 F 75 16 142/72 H 92 03/07/18 10:27 03/07/18 10:27 03/07/18 10:27 03/07/18 10:27 03/07/18 10:27 Intake & Output 03/06/18 03/07/18 03/08/18 06:59 06:59 06:59 Intake Total 737 1485 Balance 737 1485 Weight 67.9 kg 68 kg General appearance: PRESENT: no acute distress, well-developed, well-nourished Head exam: PRESENT: atraumatic, normocephalic Eye exam: PRESENT: conjunctiva pink, EOMI, PERRLA. ABSENT: scleral icterus Ear exam: PRESENT: normal external ear exam Mouth exam: PRESENT: moist, tongue midline Neck exam: PRESENT: full ROM. ABSENT: carotid bruit, JVD, lymphadenopathy, thyromegaly Respiratory exam: PRESENT: clear to auscultation stephanie Cardiovascular exam: PRESENT: RRR. ABSENT: diastolic murmur, rubs, systolic murmur Pulses: PRESENT: normal dorsalis pedis pul, +2 pedal pulses bilateral Vascular exam: PRESENT: normal capillary refill GI/Abdominal exam: PRESENT: normal bowel sounds, soft. ABSENT: distended, guarding, mass, organolmegaly, rebound, tenderness Rectal exam: PRESENT: deferred Extremities exam: ABSENT: pedal edema Musculoskeletal exam: PRESENT: ambulatory Neurological exam: PRESENT: alert, awake, oriented to person, oriented to place , oriented to time, oriented to situation, CN II-XII grossly intact. ABSENT: motor sensory deficit Psychiatric exam: PRESENT: appropriate affect, normal mood. ABSENT: homicidal ideation, suicidal ideation Skin exam: PRESENT: dry, intact, warm. ABSENT: cyanosis, rash Results Laboratory Results: 03/06/18 05:26 03/06/18 05:26 02/25/18 02/25/18 02/25/18 09:23 09:23 15:40 Creatine Kinase 297 H 70 CK-MB (CK-2) 3.51 Troponin I 0.021 02/25/18 02/25/18 02/25/18 15:40 21:08 21:08 Creatine Kinase 60 CK-MB (CK-2) 1.97 1.93 Troponin I 0.038 0.043 Impressions: Chest CT 02/25/18 00:00 IMPRESSION: Multifocal pneumonia with more focal consolidation in the right lower lobe. Questionable pulmonary nodule in the left upper lobe. Mediastinal adenopathy. Clinical correlation and follow-up is recommended. Ankle X-Ray 03/01/18 00:00 IMPRESSION: NO SIGNIFICANT FINDING IN THE RIGHT ANKLE. NO EXPLANATION FOR PAIN. Foot X-Ray 03/01/18 00:00 IMPRESSION: Hallux valgus. No fractures P Chest X-Ray 03/06/18 00:00 IMPRESSION: Right lower lobe pneumonia shows no significant change. There appears to be improvement in the left base. Qualifiers - * PATIENT BEING DISCHARGED WITH ANY OF THE FOLLOWING DIAGNOSIS: No VTE patient discharged on overlapping Therapy?: Yes Plan Time Spent: Greater than 30 Minutes - Following no office 1 week repeat the chest x-ray Follow with the pulmonary and cardiology
== END 2018-03-07 13:10 | disposition home health service (06) | DRG 194 ==
LOC: ER 09:00 → EH 12:26 → 3S 17:12
PROVIDERS: ADMIT Family Medicine; ATTEND Family Medicine
PROC: 3E0F73Z Introduction of Anti-inflammatory into Respiratory Tract, Via Natural or Artificial Opening (ICD-10-PCS; principal; 2018-02-24)
DX: J18.1 Lobar pneumonia, unspecified organism (principal); J44.1 Chronic obstructive pulmonary disease with (acute) exacerbation; J44.0 Chronic obstructive pulmonary disease with (acute) lower respiratory infection; I47.1 Supraventricular tachycardia; I48.2 Chronic atrial fibrillation; I10 Essential (primary) hypertension; E03.9 Hypothyroidism, unspecified; M20.10 Hallux valgus (acquired), unspecified foot; F17.210 Nicotine dependence, cigarettes, uncomplicated; K21.9 Gastro-esophageal reflux disease without esophagitis; M19.90 Unspecified osteoarthritis, unspecified site; I25.10 Atherosclerotic heart disease of native coronary artery without angina pectoris; R59.0 Localized enlarged lymph nodes; K59.00 Constipation, unspecified; J02.9 Acute pharyngitis, unspecified; I25.2 Old myocardial infarction; Z86.711 Personal history of pulmonary embolism; Z79.899 Other long term (current) drug therapy; Z90.49 Acquired absence of other specified parts of digestive tract; Z88.6 Allergy status to analgesic agent; Z88.1 Allergy status to other antibiotic agents; Z88.2 Allergy status to sulfonamides; Z86.718 Personal history of other venous thrombosis and embolism
CPT/HCPCS: 36415; 51701; 71045; 71046; 71250; 80048; 80053; 81001; 82550; 82553; 82803; 83605; 83690; 83880; 84484; 85025; 85379; 85610; 85730; 87040; 87070; 87077; 87086; 87205; 93005; 93010; 93306; 94640; 96365; 99285; G8978-GP; G8979-GP; J0743; J1160; J1956; J3370; J3490; J7030; J7060; J7620; S0119

== ENCOUNTER → 2018-03-13 | Outpatient (CLI) | payer MEDICARE, MEDICAID ==
--- NOTE | 2018-03-13 16:18 | RADIOLOGY REPORT (SQ) ---
EXAM DESCRIPTION: CHEST PA/LATERAL COMPLETED DATE/TIME: 03/13/2018 4:06 pm REASON FOR STUDY: PNEUMONIA DUE TO INFECTIOUS ORGANISM, UNSPECIFIED PART OF LUNG COMPARISON: 03/06/2018 EXAM PARAMETERS: NUMBER OF VIEWS: two views TECHNIQUE: Digital Frontal and Lateral radiographic views of the chest acquired. RADIATION DOSE: NA LIMITATIONS: none FINDINGS: LUNGS AND PLEURA: Marked chronic interstitial changes are present. Patchy opacification i s seen in the lung bases, left more than right on today's study. There is improvement in the appeara nce of the right lung base compared to the earlier study. MEDIASTINUM AND HILAR STRUCTURES: No masses or contour abnormalities. HEART AND VASCULAR STRUCTURES: Heart normal size. No evidence for failure. BONES: No acute findings. HARDWARE: None in the chest. OTHER: No other significant finding. IMPRESSION: Chronic lung changes. Improving right lower lobe pneumonia. Cannot exclude a limited l eft lower lobe pneumonia. TECHNICAL DOCUMENTATION: JOB ID: [id number] [employer]- All Rights Reserved Reading location - IP/workstation name: [email or web address]
--- NOTE | 2018-03-13 16:18 | RADIOLOGY REPORT (SQ) ---
EXAM DESCRIPTION: ABDOMEN 2 VIEWS COMPLETED DATE/TIME: 03/13/2018 4:06 pm REASON FOR STUDY: PNEUMONIA DUE TO INFECTIOUS ORGANISM, UNSPECIFIED LATERALITY, DISTENSION COMPARISON: None. NUMBER OF VIEWS: Two views. TECHNIQUE: Supine and erect/ radiographic images of the abdomen acquired. LIMITATIONS: None. FINDINGS: FREE AIR: None. No abnormal gas collections. LUNG BASES: Clear. BOWEL GAS PATTERN: Nonobstructive pattern. No dilated loops or air fluid levels. CALCIFICATIONS: No suspicious calcifications. SOFT TISSUES: No gross mass or suggestion of organomegaly. HARDWARE: None in the abdomen. BONES: No acute fracture. No worrisome bone lesions. OTHER: No other significant finding. IMPRESSION: NO RADIOGRAPHIC EVIDENCE FOR ACUTE ABDOMINAL DISEASE. TECHNICAL DOCUMENTATION: JOB ID: [id number] [employer]- All Rights Reserved Reading location - IP/workstation name: [email or web address]
== END ==
LOC: OD 15:40
PROVIDERS: ATTEND Family Medicine
DX: J18.9 Pneumonia, unspecified organism (principal); R14.0 Abdominal distension (gaseous)
CPT/HCPCS: 71046; 74019

== ENCOUNTER 2018-03-15 20:49 | Emergency (ER) | payer MEDICARE, MEDICAID ==
[2018-03-15 20:58] VITALS: BP 169/87
== END 2018-03-15 20:59 | disposition left against medical advice (07) ==
LOC: ER 20:49
DX: Z53.21 Procedure and treatment not carried out due to patient leaving prior to being seen by health care provider (principal)

== ENCOUNTER → 2018-05-01 | Outpatient (CLI) | payer MEDICARE, MEDICAID ==
--- NOTE | 2018-05-01 10:53 | RADIOLOGY REPORT (SQ) ---
EXAM DESCRIPTION: CT CHEST WITHOUT COMPLETED DATE/TIME: 05/01/2018 10:07 am REASON FOR STUDY: LOCALIZED ENLARGED LYMPH NODES R59.0 LOCALIZED ENLARGED LYMPH NODES COMPARISON: 02/26/2018 TECHNIQUE: CT scan performed of the chest without intravenous contrast. Images reviewed with lung, soft tissue and bone windows. Reconstructed coronal and sagittal MPR images reviewed. All images st ored on PACS. All CT scanners at this facility use dose modulation, iterative reconstruction, and/or weight based d osing when appropriate to reduce radiation dose to as low as reasonably achievable (ALARA). [facility]: Dose Right [facility]: CareDose [facility]: Dose Right [facility]: Teradose 4D [facility]: [employer] RADIATION DOSE: CT Rad equipment meets quality standard of care and radiation dose reduction techniq ues were employed. CTDIvol: 7.1 mGy. DLP: 252 mGy-cm. mGy. LIMITATIONS: No technical limitations. FINDINGS: LUNGS AND PLEURA: Overall since prior study there has been significant improvement in aera tion of both lung salas. There are persistent patchy areas of interstitial as well as ground-glass infiltrate. Changes are most prominent in the right middle lobe, lingula and right lung base. HILAR AND MEDIASTINAL STRUCTURES: Mediastinal nodes remain but overall have decreased in size when co mpared to prior study. HEART AND VASCULAR STRUCTURES: Stable in appearance. UPPER ABDOMEN: No significant findings. Limited exam. THYROID AND OTHER SOFT TISSUES: No masses. No adenopathy. BONES: No significant finding. HARDWARE: None in the chest. OTHER: No other significant findings. IMPRESSION: Persistent multifocal airspace disease. Overall there has been significant improvement since prior study. Mediastinal adenopathy remains but the nodes have decreased in size since prior e xam. TECHNICAL DOCUMENTATION: JOB ID: [id number] Quality ID # [id number]: Final reports with documentation of one or more dose reduction techniques (e.g., Au tomated exposure control, adjustment of the mA and/or kV according to patient size, use of iterative reconstruction technique) 2010 [employer]- All Rights Reserved Reading location - IP/workstation name: [email or web address]
== END ==
LOC: RAD 09:57
PROVIDERS: ATTEND Physician Assistant
DX: R59.0 Localized enlarged lymph nodes (principal)
CPT/HCPCS: 71250

== ENCOUNTER 2018-05-04 02:29 | Emergency (ER) | payer MEDICARE, MEDICAID ==
[2018-05-04] MEDS ORDERED: HYDROCODONE/ACETAMINOPHEN 5-325 MG TABLET PO ONE (03:38)
--- NOTE | 2018-05-04 03:38 | ER Document Report ---
ED General - General Chief Complaint: High Blood Pressure Stated Complaint: BLOOD PRESSURE ISSUE Time Seen by Provider: 05/04/18 03:18 Mode of Arrival: Ambulatory Information source: Patient Notes: Patient is an 82-year-old female who presents with chief complaint of elevated blood pressure and left-sided low back pain. Patient reports chronic low back pain, states that 2 days ago she twisted wrong and has had worsening pain since then. Patient reports that she used to take hydrocodone however she has been off of this for approximately 1 year. Patient's daughter is at bedside who reports that patient is very anxious about her health. Patient denies any fever , nausea, vomiting, diarrhea, chest pain or shortness of breath. TRAVEL OUTSIDE OF THE [place] IN LAST 30 DAYS: No - Related Data Allergies/Adverse Reactions: ampicillin [Ampicillin] Allergy (Verified 02/24/18 17:00) codeine [Codeine] Allergy (Verified 02/24/18 17:00) Sulfa (Sulfonamide Antibiotics) Allergy (Verified 02/24/18 17:00) Past Medical History - General Information source: Patient, Relative - Social History Smoking Status: Never Smoker Frequency of alcohol use: None Drug Abuse: None Family History: Reviewed & Not Pertinent, Other - Past Medical History Cardiac Medical History: Reports: Hx Atrial Fibrillation, Hx DVT, Hx Heart Attack, Hx Hypertension, Hx Pulmonary Embolism Pulmonary Medical History: Reports: Hx Bronchitis, Hx COPD, Hx Pneumonia Denies: Hx Tuberculosis Endocrine Medical History: Reports: Hx Hypothyroidism. Denies: Hx Diabetes Mellitus Type 1 Renal/ Medical History: Denies: Hx Peritoneal Dialysis GI Medical History: Reports: Hx Gastroesophageal Reflux Disease Musculoskeletal Medical History: Reports Hx Arthritis Psychiatric Medical History: Denies: Hx Depression Past Surgical History: Reports: Hx Appendectomy, Hx Cholecystectomy - Immunizations Hx Diphtheria, Pertussis, Tetanus Vaccination: Yes - unknown Hx Pneumococcal Vaccination: 08/06/06 Review of Systems - Review of Systems Musculoskeletal: See HPI -: Yes All other systems reviewed and negative Physical Exam - Vital signs Vitals: Temp Pulse Resp BP Pulse Ox 98.2 F 80 18 146/78 H 93 05/04/18 02:37 05/04/18 02:37 05/04/18 02:37 05/04/18 02:37 05/04/18 02:37 - Notes Notes: PHYSICAL EXAMINATION: GENERAL: Well-appearing, well-nourished and in no acute distress. HEAD: Atraumatic, normocephalic. EYES: Pupils equal round and reactive to light, extraocular movements intact, conjunctiva are normal. ENT: Nares patent, oropharynx clear without exudates. Moist mucous membranes. NECK: Normal range of motion, supple without lymphadenopathy LUNGS: Breath sounds clear to auscultation bilaterally and equal. No wheezes rales or rhonchi. HEART: Regular rate and rhythm without murmurs ABDOMEN: Soft, nontender, nondistended abdomen. No guarding, no rebound. No masses appreciated. Female : No CVA tenderness. Musculoskeletal: Normal range of motion, no pitting or edema. No cyanosis. Tenderness to palpation to left paraspinous muscles, tenderness into left buttock. NEUROLOGICAL: Cranial nerves grossly intact. Normal speech. Normal sensory, motor exams PSYCH: Normal mood, normal affect. SKIN: Warm, Dry, normal turgor, no rashes or lesions noted. Course - Re-evaluation Re-evalutation: Blood pressure is normal on arrival to the emergency department. Patient was given 1 dose of hydrocodone with significant relief of her pain. Patient will be discharged home in stable condition. Patient will be sent home with Vicodin dispense pack, instructions to take 1/2 tablet every 4 hours as needed for severe pain only. Close follow-up with primary care. - Vital Signs Vital signs: Temp Pulse Resp BP Pulse Ox 97.6 F 78 16 154/89 H 96 05/04/18 04:55 05/04/18 04:55 05/04/18 04:55 05/04/18 04:55 05/04/18 04:55 Discharge - Discharge Clinical Impression: Back pain Qualifiers: Back pain location: low back pain Chronicity: chronic Back pain laterality: left Sciatica presence: without sciatica Qualified Code(s): M54.5 - Low back pain Condition: Stable Disposition: HOME, SELF-CARE Additional Instructions: LOW BACK PAIN: Three out of every four people will have an episode of disabling back pain during their lifetime. Most commonly the pain is due to straining of the muscles and ligaments in the low back. Usual treatment includes: (1) Rest on a firm surface. Avoid lying on your stomach. (2) Ice pack the painful area. After a few days, gentle heat may be used intermittently to relax the area, or ice packs can be continued. (3) Medication may be needed -- muscle relaxers and antiinflammatory medicines are commonly used. (4) As the back improves, exercises are prescribed to strengthen the back and abdominal muscles. Your doctor will advise you on the proper care for your back at each stage in your recovery. You may be better in a few days -- or healing may take several weeks. If new symptoms of a "herniated disc" (radiation of pain, numbness, or tingling down the back of the leg or weakness in the leg) occur, you should be re-examined. Further testing may be necessary. ORAL NARCOTIC MEDICATION: You have been given a prescription for pain control. This medication is a narcotic. It's best taken with food, as nausea can result if taken on an empty stomach. Don't operate machinery or drive within six hours of taking this medication. Do not combine this medicine with alcohol, or with any medication which can cause sedation (such as cold tablets or sleeping pills) unless you get permission from the physician. Narcotics tend to cause constipation. If possible, drink plenty of fluids and eat a diet high in fiber and fruits. Please be aware that prescription narcotics also have the potential for abuse. People become addicted to these medications because of the general sense of wellbeing that they induce. This feeling along with a significant reduction in tension, anxiety, and aggression provides a stimulating seductive quality to these drugs. Once your pain is under control, we encourage you to discard your unused narcotics. ICE PACKS: Apply ice packs frequently against the painful area. Many different schedules are recommended, such as "20 minutes on, 20 minutes off" or "one hour ice, two hours rest." If you need to work, you may need to go longer between ice treatments. You should plan to have the area ice packed AT LEAST one fourth of the time. The ice should be applied over the wrap, tape, or splint, or over a layer of cloth -- not directly against the skin. Some ice bags have a built-in cloth and can be put directly on the skin. WARM PACKS: After approximately two days, apply gentle heat (such as a heating pad or hot water bottle) for about 20 to 30 minutes about every two hours -- at least four times daily. Warmth and elevation will help you make a more rapid recovery , and will ease the pain considerably. Do not use HOT heat, and never apply heat for longer than 30 minutes. The continuous heat can invisibly damage skin and muscles -- even when no burn is seen on the surface. Damaged muscles can make you MORE sore. FOLLOW-UP CARE: If you have been referred to a physician for follow-up care, call the physician s office for an appointment as you were instructed or within the next two days. If you experience worsening or a significant change in your symptoms, notify the physician immediately or return to the Emergency Department at any time for re-evaluation. Your blood pressure was normal today. Please take half a tablet of the hydrocodone as needed every 4 hours for sever back pain. Please follow up with Dr. Padilla this week. Return to the emergency department if you develop worsening pain, chest pain, shortness of breath or any other symptom that is concerning to you. Referrals: RALPH PADILLA MD [Primary Care Provider] - Follow up as needed
[2018-05-04] MEDS ORDERED: HYDROCODONE/ACETAMINOPHEN 5-325 MG (6 TAB/ER DISP) PO PRN (04:42)
[2018-05-04 04:56] VITALS: BP 154/89
== END 2018-05-04 04:59 | disposition home or self-care (01) ==
LOC: ER 02:29
DX: G89.29 Other chronic pain (principal); M54.5 Low back pain; I10 Essential (primary) hypertension; J44.9 Chronic obstructive pulmonary disease, unspecified; Z88.0 Allergy status to penicillin; Z88.5 Allergy status to narcotic agent; Z88.2 Allergy status to sulfonamides
CPT/HCPCS: 99283; A9270 ×2

== ENCOUNTER → 2018-10-23 | Outpatient (CLI) | payer MEDICARE, MEDICAID ==
[2018-10-23 14:18] LABS: ALANINE AMINOTRANSFERASE 75 U/L (9-52); ALKALINE PHOSPHATASE 69 U/L (38-126); ANION GAP 9 (5-19); ASPARTATE AMINO TRANSFERASE 68 U/L (14-36); BILIRUBIN,DIRECT 0.1 mg/dL (0.0-0.4); BILIRUBIN,TOTAL 0.4 mg/dL (0.2-1.3); BLOOD UREA NITROGEN 30 mg/dL (7-20); CALCIUM 10.8 mg/dL (8.4-10.2); CARBON DIOXIDE 26 mmol/L (22-30); CHLORIDE 105 mmol/L (98-107); GLUCOSE 84 mg/dL (75-110); POTASSIUM 4.4 mmol/L (3.6-5.0); SODIUM 140.1 mmol/L (137-145); TOTAL PROTEIN 6.9 g/dL (6.3-8.2)
[2018-10-23 14:45] LABS: FREE T3 1.02 pg/mL (2.77-5.27)
[2018-10-24 07:33] LABS: THYROGLOBULIN AB SO 250.6 IU/mL (0.0-0.9)
[2018-10-24 09:39] LABS: HEPATITIS A AB IGM Negative (Negative); HEPATITIS B CORE AB IGM Negative (Negative); HEPATITS B SURFACE ANTIGEN Negative (Negative)
[2018-10-24 11:10] LABS: HEPATITIS C VIRUS ANTIBODY <0.1 s/co ratio (0.0-0.9)
[2018-10-25 14:38] LABS: ANTINUCLEAR ANTIBODIES Positive (Negative); RNP AB <0.2 AI (0.0-0.9); SJOGREN'S ANTI-SS-B AB <0.2 AI (0.0-0.9); SJOGREN'S SS-A ANTIBODY >8.0 AI (0.0-0.9); SMITH AB ANA <0.2 AI (0.0-0.9)
[2018-10-26 12:47] LABS: DNA DOUBLE STRAND ANTIBODY ANA 10 IU/mL (0-9)
== END ==
LOC: OD 12:25
PROVIDERS: ATTEND Physician Assistant
DX: E83.52 Hypercalcemia (principal); R94.6 Abnormal results of thyroid function studies
CPT/HCPCS: 36415; 80053; 80074; 82330; 84443; 84481; 86038; 86376; 86800

== ENCOUNTER → 2018-11-04 | Outpatient (CLI) | payer MEDICARE, MEDICAID ==
--- NOTE | 2018-11-04 14:10 | RADIOLOGY REPORT (SQ) ---
EXAM DESCRIPTION: U/S THYROID/SFT TISS HD NECK COMPLETED DATE/TIME: 11/04/2018 1:58 pm REASON FOR STUDY: HYPOTHYROIDISM (E03.9) E03.9 HYPOTHYROIDISM, UNSPECIFIED COMPARISON: None. TECHNIQUE: Dynamic and static lemus-scale images acquired of the thyroid gland. Selected additional c olor/power Doppler images recorded. All images stored to PACS. LIMITATIONS: None. FINDINGS: RIGHT LOBE: The right lobe of the thyroid gland measures 3.8 x 1.4 x 1.3 cm, normal size. Heterogenous echotexture. No cystic or solid masses. LEFT LOBE: The left lobe of the thyroid gland measures 3.2 x 0.8 x 1.4 cm. Heterogenous echotexture .No cystic or solid masses. ISTHMUS: The isthmus measures 2.4 mm in AP diameter, normal size. Heterogenous echotexture. No cys tic or solid masses. OTHER: No other significant finding. IMPRESSION: 1. Heterogenous normal size thyroid gland. No discrete nodule identified. TECHNICAL DOCUMENTATION: JOB ID: [id number] [employer]- All Rights Reserved Reading location - IP/workstation name: [email or web address]
== END ==
LOC: RAD 13:04
PROVIDERS: ATTEND Physician Assistant
DX: E03.9 Hypothyroidism, unspecified (principal)
CPT/HCPCS: 76536

== ENCOUNTER → 2018-12-17 | Outpatient (CLI) | payer MEDICARE, MEDICAID ==
--- NOTE | 2018-12-17 13:23 | RADIOLOGY REPORT (SQ) ---
EXAM DESCRIPTION: CT CHEST WITHOUT COMPLETED DATE/TIME: 12/17/2018 12:29 pm REASON FOR STUDY: LOCALIZED ENLARGED LYMPH NODES (R59.0) R59.0 LOCALIZED ENLARGED LYMPH NODES COMPARISON: CT chest 02/04/2011, 02/24/2011, 05/14/2013, 12/25/2017, 02/26/2018, 05/01/2018 TECHNIQUE: CT scan performed of the chest without intravenous contrast. Images reviewed with lung, soft tissue and bone windows. Reconstructed coronal and sagittal MPR images reviewed. All images st ored on PACS. All CT scanners at this facility use dose modulation, iterative reconstruction, and/or weight based d osing when appropriate to reduce radiation dose to as low as reasonably achievable (ALARA). [facility]: Dose Right [facility]: CareDose [facility]: Dose Right [facility]: Teradose 4D [facility]: [employer] RADIATION DOSE: CT Rad equipment meets quality standard of care and radiation dose reduction techniq ues were employed. CTDIvol: 6.8 mGy. DLP: 261 mGy-cm. mGy. LIMITATIONS: No technical limitations. FINDINGS: LUNGS AND PLEURA: Stable biapical pleuroparenchymal scarring is present, with stable bronc hiectasis in the right middle lobe compared to studies dating back to 2010. No worrisome pulmonary nodules. No acute infiltrates. No pleural effusion. HILAR AND MEDIASTINAL STRUCTURES: 6 mm short axis prevascular lymph node axial image 23. 7 mm precar inal short axis lymph node axial image 24. 8 to 9 mm short axis right hilar lymph node image 26. Th ross are unchanged from 2011. HEART AND VASCULAR STRUCTURES: Calcified aortic valve. Minimal spotty coronary artery calcifications UPPER ABDOMEN: Hyperdense 2.5 cm cyst left upper pole kidney, recommend bilateral renal ultrasound fo r further characterization THYROID AND OTHER SOFT TISSUES: No masses. No adenopathy. BONES: No significant finding. HARDWARE: None in the chest. OTHER: No other significant findings. IMPRESSION: Stable chronic findings TECHNICAL DOCUMENTATION: JOB ID: [id number] Quality ID # [id number]: Final reports with documentation of one or more dose reduction techniques (e.g., Au tomated exposure control, adjustment of the mA and/or kV according to patient size, use of iterative reconstruction technique) 2010 [employer]- All Rights Reserved Reading location - IP/workstation name: [email or web address] ANALYSTNOV[facility] HE[facility]OW[facility] MEDICAL CENTERPRAMOD
== END ==
LOC: RAD 12:19
PROVIDERS: ATTEND Internal Medicine Pulmonary Disease
DX: R59.0 Localized enlarged lymph nodes (principal)
CPT/HCPCS: 71250

== ENCOUNTER → 2018-12-20 | Outpatient (CLI) | payer MEDICARE, MEDICAID ==
[2018-12-20 17:08] LABS: ABSOLUTE BASOPHILS # (AUTO) 0.1 10^3/uL (0.0-0.2); ABSOLUTE EOSINOPHILS # (AUTO) 0.3 10^3/uL (0.0-0.6); ABSOLUTE LYMPHOCYTES (AUTO) 1.6 10^3/uL (0.5-4.7); ABSOLUTE MONOCYTES (AUTO) 0.6 10^3/uL (0.1-1.4); ABSOLUTE NEUT (AUTO) 5.6 10^3/uL (1.7-8.2); EOSINOPHILS % (AUTO) 3.4 % (0-6); HEMATOCRIT 37.5 % (36.0-47.0); HEMOGLOBIN 12.5 g/dL (12.0-15.5); LYMPHOCYTES % (AUTO) 19.6 % (13-45); MEAN CORPUSCULAR HGB CONC 33.3 g/dL (32.0-36.0); MEAN CORPUSCULAR VOLUME 96 fl (80-97); MONOCYTES % (AUTO) 7.9 % (3-13); PLATELET COUNT 207 10^3/uL (150-450); RED CELL DISTRIBUTION WIDTH 16.7 % (11.5-14.0); SEGMENTED NEUTROPHILS % (AUTO) 68.1 % (42-78); TOTAL CELLS COUNTED % (AUTO) 100 %; WHITE BLOOD COUNT 8.2 10^3/uL (4.0-10.5)
--- NOTE | 2018-12-20 17:11 | RADIOLOGY REPORT (SQ) ---
EXAM DESCRIPTION: CHEST 2 VIEWS COMPLETED DATE/TIME: 12/20/2018 4:39 pm REASON FOR STUDY: R07.1 CHEST PAIN ON BREATHING COMPARISON: 03/13/2018 EXAM PARAMETERS: NUMBER OF VIEWS: two views TECHNIQUE: Digital Frontal and Lateral radiographic views of the chest acquired. RADIATION DOSE: NA LIMITATIONS: none FINDINGS: LUNGS AND PLEURA: Chronic interstitial changes. Mild hyperexpansion of the lungs. No acu te infiltrate, effusion, or mass. MEDIASTINUM AND HILAR STRUCTURES: No masses or contour abnormalities. HEART AND VASCULAR STRUCTURES: Heart normal size. No evidence for failure. BONES: No acute findings. HARDWARE: None in the chest. OTHER: No other significant finding. IMPRESSION: Chronic lung changes with no acute cardiopulmonary findings. TECHNICAL DOCUMENTATION: JOB ID: [id number] [employer]- All Rights Reserved Reading location - IP/workstation name: [email or web address]
== END ==
LOC: OD 16:08
PROVIDERS: ATTEND Physician Assistant
DX: R07.1 Chest pain on breathing (principal)
CPT/HCPCS: 36415; 71046; 85025

== ENCOUNTER → 2019-01-27 | Outpatient (CLI) | payer MEDICARE, MEDICAID ==
--- NOTE | 2019-01-27 12:45 | RADIOLOGY REPORT (SQ) ---
EXAM DESCRIPTION: LUMBAR SPINE COMPLETE COMPLETED DATE/TIME: 01/27/2019 11:30 am REASON FOR STUDY: LOW BACK PAIN M54.5 LOW BACK PAIN COMPARISON: None. NUMBER OF VIEWS: Five views including obliques. TECHNIQUE: AP, lateral, oblique, and sacral radiographic images acquired of the lumbar spine. LIMITATIONS: None. FINDINGS: MINERALIZATION: Normal. SEGMENTATION: Normal. No transitional anatomy. ALIGNMENT: Levoscoliosis. VERTEBRAE: Maintained height. No fracture or worrisome bone lesion. DISCS: Disc spaces are narrowed from L3-L5. Marginal osteophytes are present. POSTERIOR ELEMENTS: Pedicles and facets are intact. No pars defect or posterior arch defects. HARDWARE: None in the spine. PARASPINAL SOFT TISSUES: Normal. PELVIS: Intact as visualized. No fractures or worrisome bone lesions. SI joints intact. OTHER: No other significant finding. IMPRESSION: Scoliosis. Degenerative disc disease. Spondylosis. TECHNICAL DOCUMENTATION: JOB ID: [id number] [employer]- All Rights Reserved Reading location - IP/workstation name: [email or web address]
== END ==
LOC: OD 11:14
PROVIDERS: ATTEND Family Medicine
DX: M51.36 Other intervertebral disc degeneration, lumbar region (principal); M54.5 Low back pain; M47.896 Other spondylosis, lumbar region
CPT/HCPCS: 72110

== ENCOUNTER → 2019-04-23 | Outpatient (CLI) | payer MEDICARE, MEDICAID ==
[2019-04-23 12:11] LABS: ABSOLUTE EOSINOPHILS # (AUTO) 0.4 10^3/uL (0.0-0.6); ABSOLUTE LYMPHOCYTES (AUTO) 1.3 10^3/uL (0.5-4.7); ABSOLUTE MONOCYTES (AUTO) 0.5 10^3/uL (0.1-1.4); ABSOLUTE NEUT (AUTO) 3.4 10^3/uL (1.7-8.2); BASOPHILS % (AUTO) 0.6 % (0-2); EOSINOPHILS % (AUTO) 7.2 % (0-6); HEMATOCRIT 37.9 % (36.0-47.0); HEMOGLOBIN 12.5 g/dL (12.0-15.5); LYMPHOCYTES % (AUTO) 23.5 % (13-45); MEAN CORPUSCULAR HEMOGLOBIN 29.2 pg (27.0-33.4); MEAN CORPUSCULAR HGB CONC 33.1 g/dL (32.0-36.0); MEAN CORPUSCULAR VOLUME 88 fl (80-97); MONOCYTES % (AUTO) 8.3 % (3-13); PLATELET COUNT 211 10^3/uL (150-450); RED BLOOD COUNT 4.29 10^6/uL (3.72-5.28); RED CELL DISTRIBUTION WIDTH 14.4 % (11.5-14.0); SEGMENTED NEUTROPHILS % (AUTO) 60.4 % (42-78); TOTAL CELLS COUNTED % (AUTO) 100 %; WHITE BLOOD COUNT 5.7 10^3/uL (4.0-10.5)
[2019-04-23 12:32] LABS: ANION GAP 7 (5-19); BLOOD UREA NITROGEN 21 mg/dL (7-20); CALCIUM 10.4 mg/dL (8.4-10.2); CARBON DIOXIDE 26 mmol/L (22-30); CHLORIDE 109 mmol/L (98-107); GLUCOSE 91 mg/dL (75-110); IRON(TIBC) 53.7 ug/dL (37-170); POTASSIUM 4.9 mmol/L (3.6-5.0)
== END ==
LOC: OD 10:56
PROVIDERS: ATTEND Family Medicine
DX: D50.8 Other iron deficiency anemias (principal)
CPT/HCPCS: 36415; 80048; 82728; 83540; 83550; 85025

== ENCOUNTER 2019-06-01 20:33 | Emergency (ER) | payer MEDICARE, MEDICAID ==
--- NOTE | 2019-06-01 20:59 | ER Document Report ---
ED Medical Screen (RME) - General Stated Complaint: FALL/BACK PAIN,THIGH PAIN,GROIN PAIN Time Seen by Provider: 06/01/19 20:54 Primary Care Provider: RALPH PADILLA MD [Primary Care Provider] - Follow up as needed Mode of Arrival: Wheelchair Information source: Patient, Relative Notes: Patient states that she fell backwards in her garden 2 weeks ago landing on her back. Patient complains of low back pain that radiates around to her abdomen into the groin. Patient did see her doctor about this complaint and had x-rays performed. Patient denies any improvement of her pain symptoms. Patient states that her provider told her that she may have injured her spleen. I have greeted and performed a rapid initial assessment of this patient. A comprehensive ED assessment and evaluation of the patient, analysis of test results and completion of the medical decision making process will be conducted by additional ED providers. TRAVEL OUTSIDE OF THE [place] IN LAST 30 DAYS: No - Related Data Allergies/Adverse Reactions: ampicillin [Ampicillin] Allergy (Verified 02/24/18 17:00) codeine [Codeine] Allergy (Verified 02/24/18 17:00) Sulfa (Sulfonamide Antibiotics) Allergy (Verified 02/24/18 17:00) Past Medical History - Social History Family history: Reviewed & Not Pertinent - Past Medical History Cardiac Medical History: Reports: Hx Atrial Fibrillation, Hx DVT, Hx Heart Attack, Hx Hypertension, Hx Pulmonary Embolism Pulmonary Medical History: Reports: Hx Bronchitis, Hx COPD, Hx Pneumonia Denies: Hx Tuberculosis Endocrine Medical History: Reports: Hx Hypothyroidism. Denies: Hx Diabetes Mellitus Type 1 Renal/ Medical History: Denies: Hx Peritoneal Dialysis GI Medical History: Reports: Hx Gastroesophageal Reflux Disease Musculoskeltal Medical History: Reports Hx Arthritis Psychiatric Medical History: Denies: Hx Depression Past Surgical History: Reports: Hx Appendectomy, Hx Cholecystectomy - Immunizations Hx Diphtheria, Pertussis, Tetanus Vaccination: Yes - unknown Physical Exam - General Notes: Thoracolumbar spinal tenderness Doctor's Discharge - Discharge Referrals: RALPH PADILLA MD [Primary Care Provider] - Follow up as needed
[2019-06-01 21:01] VITALS: BP 154/99
[2019-06-01] MEDS ORDERED: ONDANSETRON HCL INJ/PF 4 MG/2 ML SDV IV ONE (21:15)
--- NOTE | 2019-06-01 21:18 | ER Document Report ---
ED General - General Chief Complaint: Back Pain Stated Complaint: FALL/BACK PAIN,THIGH PAIN,GROIN PAIN Time Seen by Provider: 06/01/19 20:54 Primary Care Provider: RALPH PADILLA MD [Primary Care Provider] - Follow up as needed Mode of Arrival: Wheelchair Notes: Patient is an 83-year-old female that comes emergency department for chief complaint of mid to lower back pain and left-sided abdominal pain. She states that pain has been getting a lot worse over the past couple of days, she states that she did have a fall 2 weeks ago where she landed on her back, she did have negative x-rays by her primary care and that time, she is scheduled for an MRI next week. She states that she could not comfortable using Tylenol and this prompted her coming in. She denies vomiting, fever, dizziness, dysuria. She denies numbness or incontinence. She is on Xarelto (hx afib and DVT). She lives at home with family, they are at bedside. TRAVEL OUTSIDE OF THE [place] IN LAST 30 DAYS: No - Related Data Allergies/Adverse Reactions: ampicillin [Ampicillin] Allergy (Verified 02/24/18 17:00) codeine [Codeine] Allergy (Verified 02/24/18 17:00) Sulfa (Sulfonamide Antibiotics) Allergy (Verified 02/24/18 17:00) Home Medications: pt has pill bottles w/her. Past Medical History - General Information source: Patient, Relative - Social History Smoking Status: Never Smoker Frequency of alcohol use: None Drug Abuse: None Lives with: Family Family History: Reviewed & Not Pertinent, Other Patient has suicidal ideation: No Patient has homicidal ideation: No - Past Medical History Cardiac Medical History: Reports: Hx Atrial Fibrillation, Hx DVT, Hx Heart Attack, Hx Hypertension, Hx Pulmonary Embolism Pulmonary Medical History: Reports: Hx Bronchitis, Hx COPD, Hx Pneumonia Denies: Hx Tuberculosis Endocrine Medical History: Reports: Hx Hypothyroidism. Denies: Hx Diabetes Mellitus Type 1 Renal/ Medical History: Denies: Hx Peritoneal Dialysis GI Medical History: Reports: Hx Gastroesophageal Reflux Disease Musculoskeletal Medical History: Reports Hx Arthritis Psychiatric Medical History: Denies: Hx Depression Past Surgical History: Reports: Hx Appendectomy, Hx Cholecystectomy - Immunizations Hx Diphtheria, Pertussis, Tetanus Vaccination: Yes - unknown Hx Pneumococcal Vaccination: 08/06/06 Review of Systems - Review of Systems Constitutional: No symptoms reported EENT: No symptoms reported Cardiovascular: No symptoms reported Respiratory: No symptoms reported Gastrointestinal: See HPI Genitourinary: No symptoms reported Female Genitourinary: No symptoms reported Musculoskeletal: See HPI Skin: No symptoms reported Hematologic/Lymphatic: No symptoms reported Neurological/Psychological: No symptoms reported Physical Exam - Vital signs Vitals: Temp Pulse Resp BP Pulse Ox 97.9 F 85 18 154/99 H 95 06/01/19 20:49 06/01/19 20:49 06/01/19 20:49 06/01/19 20:49 06/01/19 20:49 - Notes Notes: GENERAL: Alert, interacts well. Patient appears uncomfortable and is restless trying to get comfortable on the bed HEAD: Normocephalic, atraumatic. EYES: Pupils equal, round, and reactive to light. Extraocular movements intact. ENT: Oral mucosa moist, tongue midline. Oropharynx unremarkable. Airway patent. NECK: Full range of motion. Supple. Trachea midline. LUNGS: Clear to auscultation bilaterally, no wheezes, rales, or rhonchi. No respiratory distress. HEART: Regular rate and rhythm. No murmur ABDOMEN: There is tenderness mainly in the left upper and left mid abdomen, tenderness is not severe. No guarding or rigidity. No signs of trauma. Lower abdomen is benign. GENITOURINARY: Deferred EXTREMITIES: Moves all 4 extremities spontaneously. No edema, normal radial and dorsalis pedis pulses bilaterally. No cyanosis. BACK: There is tenderness along the upper lumbar area in the midline extending down to the lower lumbar area and paralumbar areas. Patient winces with palpation of these areas. No ecchymosis or signs of trauma noted. No saddle anesthesia, normal distal neurovascular exam. Moves all extremities in full range of motion. NEUROLOGICAL: Alert and oriented x3. Normal speech. Cranial nerves II through XII grossly intact. PSYCH: Normal affect, normal mood. SKIN: Warm, dry, normal turgor. No rashes or lesions noted. Course - Re-evaluation Re-evalutation: CBC nonspecific. Chemistry shows some borderline potassium, slightly elevated BUN, patient was given IV fluids. Patient with palpable pain mainly in the lumbar area, appearing mild and nonspecific abdomen. No signs of trauma. No neurological deficits. She is alert and oriented. No fever. CT performed because of patient's reported symptoms and age, this shows L2 compression fracture of indeterminate age, could be what happened 2 weeks ago. Suspect a degree of herniation because she appears to have muscle spasms on exam as well. Patient and family are requesting pain medication, patient already has an MRI scheduled for 3 days from now, the state appreciation and are requesting to leave. I did discuss a urinalysis and repeat labs but this was de clined, they state they would prefer to leave and follow-up. They do have excellent follow-up already established, I have low suspicion of UTI or ureterolithiasis, very low suspicion of acute abdomen or acute surgical abnormality. No evidence of spinal cord compression. Provided with pain medication, discussed precautions, discussed return precautions as well. Patient and family state appreciation and agreement. Smiling and well-appearing at time of discharge. - Vital Signs Vital signs: Temp Pulse Resp BP Pulse Ox 98 F 88 19 154/99 H 97 06/02/19 00:18 06/02/19 00:18 06/02/19 00:18 06/01/19 20:49 06/02/19 00:18 - Laboratory Result Diagrams: 06/01/19 22:06 06/01/19 22:06 Laboratory results interpreted by me: 06/01/19 06/01/19 22:06 22:06 RDW 14.9 H Eos % (Auto) 10.4 H Absolute Eos (auto) 0.8 H Potassium 5.5 H Chloride 112 H Carbon Dioxide 21 L BUN 36 H Est GFR ( Amer) 50 L Est GFR (MDRD) Non-Af 41 L Albumin 3.4 L Discharge - Discharge Clinical Impression: Lower back pain Qualifiers: Chronicity: acute Back pain laterality: bilateral Sciatica presence: without sciatica Qualified Code(s): M54.5 - Low back pain Abdominal pain Qualifiers: Abdominal location: generalized Qualified Code(s): R10.84 - Generalized abdominal pain Condition: Stable Disposition: HOME, SELF-CARE Additional Instructions: There is an L2 compression fracture in the lower back on the imaging. The imaging is normal otherwise. Her potassium is borderline high, she has been given fluids, her chemistry needs to be rechecked with primary care. Please follow-up with your MRI for additional evaluation management. Take the pain medications as needed, if you do also give the stool softener to avoid constipation. Return if she worsens including vomiting, fever, developing numbness, inability to urinate, accidentally moving the bowels, or any other concerning or worsening symptoms. Prescriptions: Docusate Sodium [Colace 100 mg Capsule] 100 mg PO ASDIR PRN #30 capsule PRN Reason: Oxycodone HCl/Acetaminophen [Percocet 5-325 mg Tablet] 1 - 2 tab PO TID PRN #12 tablet PRN Reason: Referrals: RALPH PADILLA MD [Primary Care Provider] - Follow up as needed
[2019-06-01] MEDS: MORPHINE SULFATE 10 MG/ML INJ IV ONE ×2 (21:38→21:41)
[2019-06-01 22:20] LABS: ABSOLUTE BASOPHILS # (AUTO) 0.1 10^3/uL (0.0-0.2); ABSOLUTE EOSINOPHILS # (AUTO) 0.8 10^3/uL (0.0-0.6); ABSOLUTE LYMPHOCYTES (AUTO) 2.3 10^3/uL (0.5-4.7); ABSOLUTE MONOCYTES (AUTO) 0.7 10^3/uL (0.1-1.4); ABSOLUTE NEUT (AUTO) 3.7 10^3/uL (1.7-8.2); EOSINOPHILS % (AUTO) 10.4 % (0-6); HEMOGLOBIN 12.1 g/dL (12.0-15.5); LYMPHOCYTES % (AUTO) 30.4 % (13-45); MEAN CORPUSCULAR HEMOGLOBIN 28.9 pg (27.0-33.4); MEAN CORPUSCULAR HGB CONC 32.7 g/dL (32.0-36.0); MEAN CORPUSCULAR VOLUME 88 fl (80-97); MONOCYTES % (AUTO) 9.4 % (3-13); PLATELET COUNT 185 10^3/uL (150-450); RED BLOOD COUNT 4.19 10^6/uL (3.72-5.28); RED CELL DISTRIBUTION WIDTH 14.9 % (11.5-14.0); SEGMENTED NEUTROPHILS % (AUTO) 48.8 % (42-78); TOTAL CELLS COUNTED % (AUTO) 100 %; WHITE BLOOD COUNT 7.6 10^3/uL (4.0-10.5)
[2019-06-01 22:40] LABS: ALBUMIN 3.4 g/dL (3.5-5.0); ALKALINE PHOSPHATASE 125 U/L (38-126); ANION GAP 8 (5-19); ASPARTATE AMINO TRANSFERASE 33 U/L (14-36); BILIRUBIN,DIRECT 0.1 mg/dL (0.0-0.4); BILIRUBIN,TOTAL 0.2 mg/dL (0.2-1.3); BLOOD UREA NITROGEN 36 mg/dL (7-20); CALCIUM 10.2 mg/dL (8.4-10.2); CARBON DIOXIDE 21 mmol/L (22-30); CHLORIDE 112 mmol/L (98-107); GLUCOSE 98 mg/dL (75-110); POTASSIUM 5.5 mmol/L (3.6-5.0); TOTAL PROTEIN 6.5 g/dL (6.3-8.2)
[2019-06-01] MEDS ORDERED: NORMAL SALINE 500 ML IV ONE (22:45)
--- NOTE | 2019-06-01 23:31 | RADIOLOGY REPORT (SQ) ---
CT ABDOMEN PELVIS WITH IV CONTRAST EXAM DATE: 06/01/2019 9:12 PM CDT HISTORY: Flank pain. Back pain. COMPARISON: 02/03/2016 TECHNIQUE: CT scan of the abdomen and pelvis was performed with IV contrast. This exam was performed according to our departmental dose-optimization program, which includes automated exposure control, adjustment of the mA and/or kV according to patient size and/or use of iterative reconstruction technique. FINDINGS: The lung bases are clear. No pleural or pericardial effusions. There has been a prior cholecystectomy. Liver, spleen, pancreas, adrenal glands, kidneys, and pelvic organs are unremarkable. Simple cysts are seen in both kidneys. No hydronephrosis or urinary stones. There has been a prior appendectomy. The small and large bowel are unremarkable. No intraperitoneal free fluid or free air is seen. There are mild degenerative changes of the spine. Age-indeterminate compression deformity of L2, favored to be chronic given the superimposed degenerative changes. No aortic dissection or aneurysm. No abnormal body wall hernia. IMPRESSION: 1. Age-indeterminate compression deformity of L2 which may be chronic given the superimposed degenerative changes. However, MRI for complete evaluation. 2. No acute intra-abdominal findings.
[2019-06-01] MEDS ORDERED: HYDROCODONE/ACETAMINOPHEN 5-325 MG (6 TAB/ER DISP) PO PRN (23:51)
== END 2019-06-02 00:10 | disposition home or self-care (01) ==
LOC: ER 20:33
DX: M54.5 Low back pain (principal); R10.84 Generalized abdominal pain; W19.XXXA Unspecified fall, initial encounter; I10 Essential (primary) hypertension; E03.9 Hypothyroidism, unspecified; I48.91 Unspecified atrial fibrillation; Z86.718 Personal history of other venous thrombosis and embolism; Z90.49 Acquired absence of other specified parts of digestive tract; Z88.0 Allergy status to penicillin; Z88.6 Allergy status to analgesic agent; Z88.2 Allergy status to sulfonamides; I25.2 Old myocardial infarction
CPT/HCPCS: 36415; 83690; 85025; 80053; 74177; J2270; J2405; J7040; A9270; 96361; 96374; 96375; 99284

== ENCOUNTER → 2019-06-06 | Outpatient (CLI) | payer MEDICARE, MEDICAID ==
--- NOTE | 2019-06-07 09:42 | RADIOLOGY REPORT (SQ) ---
EXAM DESCRIPTION: MRI LUMBAR SPINE WITHOUT COMPLETED DATE/TIME: 06/06/2019 5:18 pm REASON FOR STUDY: M54.5 LOW BACK PAIN M54.5 LOW BACK PAIN G89.29 OTHER CHRONIC PAIN COMPARISON: 2013. Radiographs 05/20/2019. TECHNIQUE: Sagittal and Axial imaging includes T1, T2, STIR and gradient echo sequences. Coronal T2/ HASTE imaging. LIMITATIONS: None. FINDINGS: VISUALIZED UPPER ABDOMEN: Limited assessment. Renal cysts. No suggestion of acute or vanesa picious abnormality. SEGMENTATION: No transitional anatomy. The lowest well-developed disc space is labeled L5-S1. ALIGNMENT: Convex left scoliosis. VERTEBRAE: Mild right sided depression of L2 upper endplate with close to 20% height loss but no retr opulsion. BONE MARROW: Marrow edema at the L2 upper endplate fracture site. No other edema. Chronic fatty end plate changes at the L3-4 level. DISC SIGNAL: Variable disc signal and height loss throughout. POSTERIOR ELEMENTS: Facet arthropathy. No pars defect. HARDWARE: None in the spine. CORD AND CONUS: Normal in size and signal intensity. Conus at the appropriate level. SOFT TISSUES: No aortic aneurysm seen. No bulky retroperitoneal adenopathy or mass. No paraspinal mas s or fluid. L1-L2: Broad disc bulge flattens the ventral thecal sac. Mild facet arthropathy. Overall relatively mild central narrowing. L2-L3: Mild disc and facet disease with slight right lateral recess stenosis and noncritical right fo raminal narrowing. L3-L4: Disc and facet disease with slight central narrowing, lateral recess encroachment without to m oderate right foraminal stenosis. L4-L5: Asymmetric left facet overgrowth. Disc osteophyte complex. Moderate central stenosis with le ft lateral recess narrowing particularly. Marked Left and relatively mild right foraminal stenosis. L5-S1: Mild disc and facet disease without central stenosis. Mild foraminal narrowing. LOWER THORACIC: Incompletely imaged. No stenosis seen. SACRUM: Visualized upper sacrum intact. OTHER: No other significant findings. IMPRESSION: 1. Mild recent appearing L2 compression deformity. 2. Multilevel spondylosis. Spinal stenosis looks most pronounced at the L4-5 level. TECHNICAL DOCUMENTATION: JOB ID: [id number]- All Rights Reserved Reading location - IP/workstation name: [email or web address]
== END ==
LOC: RAD 16:18
PROVIDERS: ATTEND Family Medicine
DX: M54.5 Low back pain (principal); G89.29 Other chronic pain; M47.896 Other spondylosis, lumbar region; M48.061 Spinal stenosis, lumbar region without neurogenic claudication
CPT/HCPCS: 72148

== ENCOUNTER → 2019-06-20 | Outpatient (CLI) | payer MEDICARE, MEDICAID ==
[2019-06-20 14:38] LABS: APPEARANCE,URINE SLIGHTLY-CLOUDY; BILIRUBIN,URINE NEGATIVE (NEGATIVE); COLOR,URINE YELLOW; GLUCOSE, URINE NEGATIVE (NEGATIVE); KETONES,URINE NEGATIVE (NEGATIVE); LEUKOCYTE ESTERASE,URINE LARGE (NEGATIVE); NITRITE,URINE NEGATIVE (NEGATIVE); PROTEIN,URINE 30 mg/dL (NEGATIVE); URINE SPECIFIC GRAVITY 1.011; UROBILINOGEN,URINE NEGATIVE mg/dL (<2.0)
[2019-06-20 14:39] LABS: ABSOLUTE EOSINOPHILS # (AUTO) 0.5 10^3/uL (0.0-0.6); ABSOLUTE LYMPHOCYTES (AUTO) 1.8 10^3/uL (0.5-4.7); ABSOLUTE MONOCYTES (AUTO) 0.5 10^3/uL (0.1-1.4); ABSOLUTE NEUT (AUTO) 3.3 10^3/uL (1.7-8.2); BASOPHILS % (AUTO) 0.8 % (0-2); EOSINOPHILS % (AUTO) 7.9 % (0-6); HEMATOCRIT 38.5 % (36.0-47.0); HEMOGLOBIN 12.7 g/dL (12.0-15.5); LYMPHOCYTES % (AUTO) 28.6 % (13-45); MEAN CORPUSCULAR HEMOGLOBIN 28.9 pg (27.0-33.4); MEAN CORPUSCULAR VOLUME 88 fl (80-97); MONOCYTES % (AUTO) 8.6 % (3-13); PLATELET COUNT 248 10^3/uL (150-450); RED CELL DISTRIBUTION WIDTH 14.1 % (11.5-14.0); SEGMENTED NEUTROPHILS % (AUTO) 54.1 % (42-78); TOTAL CELLS COUNTED % (AUTO) 100 %; WHITE BLOOD COUNT 6.2 10^3/uL (4.0-10.5)
[2019-06-20 14:46] LABS: INTERNATIONAL RATION (INR) 2.13; PARTIAL THROMBOPLASTIN TIME 37.2 SEC (23.5-35.8); PROTHROMBIN TIME 24.2 SEC (11.4-15.4)
== END ==
LOC: OD 12:05
PROVIDERS: ATTEND Pain Medicine Interventional Pain Medicine
DX: Z01.812 Encounter for preprocedural laboratory examination (principal); Z01.818 Encounter for other preprocedural examination; S22.009A Unspecified fracture of unspecified thoracic vertebra, initial encounter for closed fracture; X58.XXXA Exposure to other specified factors, initial encounter
CPT/HCPCS: 36415; 81001; 85025; 85610; 85730

== ENCOUNTER 2019-06-24 05:37 | Day surgery (SDC) | payer MEDICARE, MEDICAID ==
[~2019-06-24 05:37] MED LIST changes: +CEFAZOLIN INJ 1 GM VIAL ONE; +CEFAZOLIN SODIUM 1 GM in DEXTROSE 5%-WATER 50 ML IV PRN; +CLINDAMYCIN 600 MG/D5W RTU 600 MG/50 ML RTUPB IV ONE; +CLINDAMYCIN 600 MG/D5W RTU 600 MG/50 ML RTUPB IV PRN; -FERUMOXYTOL (NON-ESRD) 510 MG/NS 100 ML IV PRN; -NORMAL SALINE 250 ML IV PRN; +RINGERS SOLUTION,LACTATED 1,000 ML IV PRN
[2019-06-24 06:42] LABS: APPEARANCE,URINE CLEAR; BILIRUBIN,URINE NEGATIVE (NEGATIVE); COLOR,URINE YELLOW; GLUCOSE, URINE NEGATIVE (NEGATIVE); KETONES,URINE NEGATIVE (NEGATIVE); LEUKOCYTE ESTERASE,URINE NEGATIVE (NEGATIVE); NITRITE,URINE NEGATIVE (NEGATIVE); PROTEIN,URINE NEGATIVE (NEGATIVE); UROBILINOGEN,URINE NEGATIVE mg/dL (<2.0)
[2019-06-24] MEDS ORDERED: KETAMINE HCL INJ 500 MG/10 ML VIAL ONE (06:54)
[2019-06-24] MEDS ORDERED: MIDAZOLAM 2 MG/2 ML INJ ONE (06:55)
[2019-06-24] MEDS ORDERED: PROPOFOL INJ 200 MG/20 ML VIAL IV ONE (06:55)
[2019-06-24] MEDS ORDERED: HYDROMORPHONE HCL INJ/PF 2 MG/ML AMPULE ONE (06:55)
[2019-06-24 07:32] LABS: ABSOLUTE BASOPHILS # (AUTO) 0.1 10^3/uL (0.0-0.2); ABSOLUTE EOSINOPHILS # (AUTO) 0.5 10^3/uL (0.0-0.6); ABSOLUTE LYMPHOCYTES (AUTO) 1.6 10^3/uL (0.5-4.7); ABSOLUTE MONOCYTES (AUTO) 0.7 10^3/uL (0.1-1.4); ABSOLUTE NEUT (AUTO) 3.8 10^3/uL (1.7-8.2); BASOPHILS % (AUTO) 0.8 % (0-2); EOSINOPHILS % (AUTO) 7.8 % (0-6); HEMATOCRIT 36.8 % (36.0-47.0); HEMOGLOBIN 12.2 g/dL (12.0-15.5); MEAN CORPUSCULAR HEMOGLOBIN 28.9 pg (27.0-33.4); MEAN CORPUSCULAR HGB CONC 33.1 g/dL (32.0-36.0); MEAN CORPUSCULAR VOLUME 87 fl (80-97); MONOCYTES % (AUTO) 10.1 % (3-13); PLATELET COUNT 226 10^3/uL (150-450); RED BLOOD COUNT 4.22 10^6/uL (3.72-5.28); RED CELL DISTRIBUTION WIDTH 14.8 % (11.5-14.0); SEGMENTED NEUTROPHILS % (AUTO) 57.3 % (42-78); TOTAL CELLS COUNTED % (AUTO) 100 %; WHITE BLOOD COUNT 6.6 10^3/uL (4.0-10.5)
[2019-06-24 07:40] LABS: PARTIAL THROMBOPLASTIN TIME 27.7 SEC (23.5-35.8); PROTHROMBIN TIME 13.2 SEC (11.4-15.4)
[2019-06-24] MEDS ORDERED: ALBUTEROL SULFATE 0.083% NEB 2.5 MG/3 ML AMPUL NEB ONE (08:02)
[2019-06-24] MEDS ORDERED: FENTANYL CITRATE INJ/PF 100 MCG/2 ML AMPUL IV PRN ×3 (08:39)
[2019-06-24] MEDS ORDERED: MEPERIDINE HCL/PF INJ 25 MG/1 ML DISP.SYRIN IV PRN (08:39)
[2019-06-24] MEDS ORDERED: ONDANSETRON HCL INJ/PF 4 MG/2 ML SDV IV PRN ×2 (08:39→10:41)
[2019-06-24] MEDS ORDERED: DIPHENHYDRAMINE HCL 50 MG/ML VIAL IV PRN (08:39)
[2019-06-24] MEDS ORDERED: PROMETHAZINE HCL INJ 25 MG/1 ML VIAL IV PRN ×2 (08:39)
[2019-06-24] MEDS: LIDOCAINE 1% INJ-PF (10 MG/ML) 30 ML SDV ONE ×2 (08:55→09:02)
--- NOTE | 2019-06-24 09:40 | Operative Report ---
Operative Report DATE OF SURGERY: 06/24/19 PREOPERATIVE DIAGNOSIS: Vertebral compression fracture of the L2 vertebral body OPERATION: Cutaneous balloon kyphoplasty of the L2 vertebral body SURGEON: RORY MURRAY ANESTHESIA: Moderate Sedation TISSUE REMOVED OR ALTERED: none COMPLICATIONS: none ESTIMATED BLOOD LOSS: 5 mL INTRAOPERATIVE FINDINGS: Excellent spread of bone cement throughout the vertebral body without extravasation PROCEDURE: > > DESCRIPTION OF PROCEDURE: > The patient was taken to the preoperative suite, informed consent was obtained from the patient, and all appropriate preoperative documentation was completed. Intravenous access was obtained and the patient was moved to the operating room. A time out was performed with the patient, nurse and attending physician present in the operative suite. Prophylactic antibiotics were administered in the form of the Clindamycin 600 mg preoperatively and less than one hour before incision. The patient was positioned prone and all pressure points were checked while the patient was awake. Monitored anesthesia care was subsequently induced by the anesthesia care provider. > The L2 vertebral body was identified with fluoroscopic guidance. The skin overlying the target area was prepped with Chlorhexidine gludonate solution x 3 and sterilely draped in the usual fashion maintaining meticulous sterile technique. Local anesthesia was obtained with a total of ml of preservative free 1% Lidocaine. A stab incision was made 1 cm lateral of the lateral border of each pedicle at the level of the target vertebral body. A 10 gauge trocar was introduced safely through each pedicle just inside the target vertebral body. The stylet of the trocar was removed and a working cannula was left in place. A biopsy was obtained through each trocar. A drill was then inserted through both working cannulas, advanced under lateral fluoroscopic imaging, to a point just posterior to the anterior vertebral body wall. The drill was removed and balloons (one in each pedicle) were inserted through the working cannula stopping posterior to the anterior vertebral body wall. The balloons were inflated with radiopaque contrast dye in .5 mL increments. Lateral fluoroscopic images were obtained to confirm balloon inflation did not breach the superior or inferior endplates. A/P fluoroscopic images were obtained periodically to confirm that the lateral sanders were not breached. Inflation of the balloons continued until the desired fracture reduction was achieved. PMMA bone cement was prepared and filled in bone filler cannulas. The balloons were deflated and removed. The cement filled cannulas were inserted through the working cannula to the anterior portion of the vertebral body. The cement cannula plungers were used to push .2 mL increments of cement into the vertebral body. Lateral fluoroscopic images were obtained at .2 mL increments to verify that the cement did not extravasate. A/P fluoroscopic views were taken at incrementally to verify that the cement did not extravasate laterally. Safe cement fill continued until the anterior 2/3 and the middle of the vertebral body was filled. A total of 5.8 mL of cement was filled from the left pedicle and 1.8 mL was filled on the right pedicle. Then, the bone cement cannulas were removed. Lateral fluoroscopic imaging confirmed that no cement migrated posteriorly up the working cannula. The working cannulas were removed and pressure was applied to the incision sites until adequate hemostasis was assured. The incision sites were then copiously irrigated with bacitracin solution. Indermil was used to reapproximate the skin and each site was covered with a sterile adhesive bandage. > COUNTS: > Final sponge and needle counts were correct. > EQUIPMENT USED: > The following [employer] products were used: > > OPERATING ROOM DISPOSITION: > The patient was taken from the operating room to the recovery room in stable condition. > > FINAL DISPOSITION: > The patient was discharged from the PACU after appropriate discharge criteria were met. > > POST OPERATIVE PRESCRIPTION: > > > FOLLOW UP: > The patient is to follow up in clinic.
[2019-06-24] MEDS ORDERED: OXYCODONE-ACETAMINOPHEN 5-325 MG TABLET PO PRN (10:41)
[2019-06-24] MEDS ORDERED: OXYCODONE-ACETAMINOPHEN 5-325 MG TABLET ONE (11:09)
[2019-06-24] MEDS ORDERED: LIDOCAINE 2% INJ-PF (100 MG/5 ML) SYRINGE ONE (12:13)
--- NOTE | 2019-06-24 12:48 | RADIOLOGY REPORT (SQ) ---
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 FLUOROSCOPY TIME: 2.9 minutes Multiple images saved to PACS. TECHNIQUE: Intra-operative images acquired during surgical procedure to evaluate progress. NUMBER OF IMAGES: Multiple LIMITATIONS: None. FINDINGS: Limited fluoroscopic images demonstrate evidence of vertebral kyphoplasty. Please see ope rative report for detailed description. IMPRESSION: IMAGE(S) OBTAINED DURING PROCEDURE. COMMENT: Quality ID [id number]: Final reports for procedures using fluoroscopy that document radiation exp osure indices, or exposure time and number of fluorographic images (if radiation exposure indices are not available) Please consult full operative report of the attending physician for description of the procedure. TECHNICAL DOCUMENTATION: JOB ID: [id number] [employer]- All Rights Reserved Reading location - IP/workstation name: [email or web address]
--- NOTE | 2019-06-24 12:48 | RADIOLOGY REPORT (SQ) ---
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 FLUOROSCOPY TIME: 2.9 minutes Multiple images saved to PACS. TECHNIQUE: Intra-operative images acquired during surgical procedure to evaluate progress. NUMBER OF IMAGES: Multiple LIMITATIONS: None. FINDINGS: Limited fluoroscopic images demonstrate evidence of vertebral kyphoplasty. Please see ope rative report for detailed description. IMPRESSION: IMAGE(S) OBTAINED DURING PROCEDURE. COMMENT: Quality ID [id number]: Final reports for procedures using fluoroscopy that document radiation exp osure indices, or exposure time and number of fluorographic images (if radiation exposure indices are not available) Please consult full operative report of the attending physician for description of the procedure. TECHNICAL DOCUMENTATION: JOB ID: [id number] [employer]- All Rights Reserved Reading location - IP/workstation name: [email or web address]
[2019-06-24] MEDS ORDERED: ONDANSETRON HCL INJ/PF 4 MG/2 ML SDV ONE (15:02)
[2019-06-24 15:42] VITALS: BP 146/69
== END 2019-06-24 12:35 | disposition home or self-care (01) ==
LOC: OROUT 05:37
PROVIDERS: ATTEND Pain Medicine Interventional Pain Medicine
DX: S32.020S Wedge compression fracture of second lumbar vertebra, sequela (principal); W19.XXXS Unspecified fall, sequela; J44.9 Chronic obstructive pulmonary disease, unspecified; E07.9 Disorder of thyroid, unspecified; M51.36 Other intervertebral disc degeneration, lumbar region; R06.02 Shortness of breath; I49.9 Cardiac arrhythmia, unspecified; Z79.01 Long term (current) use of anticoagulants; Z79.899 Other long term (current) drug therapy
CPT/HCPCS: 36415; 85025; 85610; 85730; 81001; 72100; 22514; C1713; J3490 ×2; J2001; A9270 ×2; J2405; J2704; 1936; J0690; J1170; J2250

== ENCOUNTER → 2019-07-17 | Outpatient (CLI) | payer MEDICARE, MEDICAID ==
--- NOTE | 2019-07-17 13:33 | RADIOLOGY REPORT (SQ) ---
EXAM DESCRIPTION: CHEST PA/LATERAL COMPLETED DATE/TIME: 07/17/2019 1:18 pm REASON FOR STUDY: WHEEZING COMPARISON: 12/20/2018 EXAM PARAMETERS: NUMBER OF VIEWS: two views TECHNIQUE: Digital Frontal and Lateral radiographic views of the chest acquired. RADIATION DOSE: NA LIMITATIONS: none FINDINGS: LUNGS AND PLEURA: Emphysematous change with biapical pleuroparenchymal scarring. Increase d AP diameter. Unchanged right mid lung calcified granuloma. No new airspace disease. No pleural e ffusion or pneumothorax. MEDIASTINUM AND HILAR STRUCTURES: No masses or contour abnormalities. HEART AND VASCULAR STRUCTURES: Heart normal size. No evidence for failure. BONES: Exaggerated thoracic kyphosis with evidence of prior kyphoplasty. No acute findings. HARDWARE: Prior cholecystectomy. OTHER: No other significant finding. IMPRESSION: Emphysematous change without evidence of acute cardiopulmonary process. TECHNICAL DOCUMENTATION: JOB ID: [id number] [employer]- All Rights Reserved Reading location - IP/workstation name: [email or web address]
== END ==
LOC: RAD 13:02
PROVIDERS: ATTEND Physician Assistant
DX: R06.2 Wheezing (principal)
CPT/HCPCS: 71046

== ENCOUNTER → 2019-09-15 | Outpatient (CLI) | payer MEDICARE, MEDICAID ==
--- NOTE | 2019-09-15 08:40 | WOMENS IMAGING REPORT ---
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 LIMITATIONS: None. FINDINGS: HIP: The bone mineral density (BMD) measured in the left femoral neck at the hip correlates with a T-score of -1.9, which is osteopenic as defined by the World Health Organization. BMD Change vs Baseline: This is stable compared to 2016 and 2014. This represents a 12% decline in b one density since 2005 FOREARM: The bone mineral density (BMD) measured in the distal radius/ ulnar diaphysis forearm correlates with a T-score of -3.3 which is osteoporotic as defined by the World Health Organization. BMD Change vs Baseline: This represents a 20% decline in bone density since 2005. 10 year Fracture Risk Assessment: Major Osteoporotic Fracture: 15% Hip Fracture: 4.5% IMPRESSION: 1. HIP WHO CLASSIFICATION: Osteopenic 2. FOREARM WHO CLASSIFICATION: Osteoporotic OVERALL ASSESSMENT: WHO CLASSIFICATION: Osteoporotic COMMENT: The World Health Organization defines low BMD as follows: T-score: Normal: Greater than -1.0 Osteopenia: Between -1.0 and -2.5 Osteoporosis: Less than -2.5 without fractures Established osteoporosis: Less than -2.5 with fractures In general, you may wish to consider: Diagnosis Treatment Follow-up DEXA Normal BMD Prevention 2-3 years Osteopenia Prevention/Therapy 1-2 years Osteoporosis Therapy Yearly TECHNICAL DOCUMENTATION: JOB ID: [id number] [employer]- All Rights Reserved Reading location - IP/workstation name: [email or web address]
== END ==
LOC: WI 07:40
PROVIDERS: ATTEND Physician Assistant Medical
DX: M81.0 Age-related osteoporosis without current pathological fracture (principal)
CPT/HCPCS: 77080

== ENCOUNTER 2019-09-26 17:58 | Emergency (ER) | payer MEDICARE, MEDICAID ==
--- NOTE | 2019-09-26 18:11 | ER Document Report ---
ED Medical Screen (RME) - General Chief Complaint: Back Pain Stated Complaint: BACK/HIP PAIN Time Seen by Provider: 09/26/19 18:02 Primary Care Provider: DUKE NUNEZ PA-C [Primary Care Provider] - Follow up as needed Mode of Arrival: Wheelchair Information source: Patient Notes: Patient states she was at home and reached over while making coffee and felt a sudden pop in her back. Patient states she has been unable to walk due to the pain since then. Patient does have a history of previous spinal surgery last June. Patient took an oxycodone at home prior to her arrival here. I have greeted and performed a rapid initial assessment of this patient. A comprehensive ED assessment and evaluation of the patient, analysis of test results and completion of the medical decision making process will be conducted by additional ED providers. TRAVEL OUTSIDE OF THE [place] IN LAST 30 DAYS: No - Related Data Allergies/Adverse Reactions: ampicillin [Ampicillin] Allergy (Verified 02/24/18 17:00) codeine [Codeine] Allergy (Verified 02/24/18 17:00) Sulfa (Sulfonamide Antibiotics) Allergy (Verified 02/24/18 17:00) Home Medications: hydrocodone Past Medical History - Social History Chew tobacco use (# tins/day): No Frequency of alcohol use: None Drug Abuse: None Family history: Reviewed & Not Pertinent - Past Medical History Cardiac Medical History: Reports: Hx Atrial Fibrillation, Hx DVT, Hx Heart Attack, Hx Hypertension, Hx Pulmonary Embolism Denies: Hx Coronary Artery Disease Pulmonary Medical History: Reports: Hx Bronchitis, Hx COPD, Hx Pneumonia Denies: Hx Asthma, Hx Tuberculosis Neurological Medical History: Denies: Hx Cerebrovascular Accident Endocrine Medical History: Reports: Hx Hypothyroidism. Denies: Hx Diabetes Mellitus Type 1 Renal/ Medical History: Denies: Hx Peritoneal Dialysis GI Medical History: Reports: Hx Gastroesophageal Reflux Disease Musculoskeltal Medical History: Reports Hx Arthritis Psychiatric Medical History: Denies: Hx Depression Past Surgical History: Reports: Hx Appendectomy, Hx Cholecystectomy - Immunizations Hx Diphtheria, Pertussis, Tetanus Vaccination: Yes - unknown Physical Exam - Vital signs Vitals: Temp Pulse Resp BP Pulse Ox 98.3 F 76 18 193/88 H 95 09/26/19 18:05 09/26/19 18:05 09/26/19 18:05 09/26/19 18:05 09/26/19 18:05 - Back Back: Tender - Right lower lumbar, SI tenderness Course - Vital Signs Vital signs: Temp Pulse Resp BP Pulse Ox 98.3 F 76 18 193/88 H 95 09/26/19 18:05 09/26/19 18:05 09/26/19 18:05 09/26/19 18:05 09/26/19 18:05 Doctor's Discharge - Discharge Referrals: DUKE NUNEZ, PASaulC [Primary Care Provider] - Follow up as needed
--- NOTE | 2019-09-26 18:50 | RADIOLOGY REPORT (SQ) ---
EXAM DESCRIPTION: L SPINE WHOLE COMPLETED DATE/TIME: 09/26/2019 6:37 pm REASON FOR STUDY: back pain COMPARISON: 05/20/2019 NUMBER OF VIEWS: Five views including obliques. TECHNIQUE: AP, lateral, oblique, and sacral radiographic images acquired of the lumbar spine. LIMITATIONS: None. FINDINGS: MINERALIZATION: Osteopenia. ALIGNMENT: Stable. VERTEBRAE: No acute compression deformity. Prior vertebroplasty at the L2 level. DISCS: Multilevel disc space narrowing with osteophytes. POSTERIOR ELEMENTS: Pedicles and facets are intact. No pars defect or posterior arch defects. Facet arthropathy is present. HARDWARE: None in the spine. PARASPINAL SOFT TISSUES: Cholecystectomy and right lower quadrant surgical clips. PELVIS: Intact as visualized. No fractures or worrisome bone lesions. SI joints intact. OTHER: No other significant finding. IMPRESSION: No acute compression deformity. Prior vertebroplasty at the L2 level. TECHNICAL DOCUMENTATION: JOB ID: [id number] 2010 [employer]- All Rights Reserved Reading location - IP/workstation name: [email or web address]
--- NOTE | 2019-09-26 19:09 | ER Document Report ---
ED General - General Chief Complaint: Back Pain Stated Complaint: BACK/HIP PAIN Time Seen by Provider: 09/26/19 18:02 Primary Care Provider: DUKE NUNEZ PA-C [ALLIED HEALTH PROFESSIONAL] - Follow up as needed Mode of Arrival: Wheelchair Information source: Patient, Relative - Family in room with patient Notes: 84-year-old female arrives with chief complaint of reaching for something with her right hand and felt a pop in her right SI joint this afternoon. Patient now complains of 8 out of 10 pain pointing to her SI area. The pain is not radiated. She has a history of disc disease as well as bone thinning of her back bone. She sees [facility] for chronic back pain. TRAVEL OUTSIDE OF THE [place] IN LAST 30 DAYS: No - HPI Onset: Just prior to arrival Onset/Duration: Sudden Quality of pain: Achy Severity: Moderate Pain Level: 2 Associated symptoms: None Exacerbated by: Movement Relieved by: Remaining still Similar symptoms previously: No Recently seen / treated by doctor: No - Related Data Allergies/Adverse Reactions: ampicillin [Ampicillin] Allergy (Verified 02/24/18 17:00) codeine [Codeine] Allergy (Verified 02/24/18 17:00) Sulfa (Sulfonamide Antibiotics) Allergy (Verified 02/24/18 17:00) Home Medications: hydrocodone Past Medical History - General Information source: Patient - Social History Smoking Status: Never Smoker Chew tobacco use (# tins/day): No Frequency of alcohol use: None Drug Abuse: None Family History: Reviewed & Not Pertinent, Other Patient has suicidal ideation: No Patient has homicidal ideation: No - Past Medical History Cardiac Medical History: Reports: Hx Atrial Fibrillation, Hx DVT, Hx Heart Attack, Hx Hypertension, Hx Pulmonary Embolism Denies: Hx Coronary Artery Disease Pulmonary Medical History: Reports: Hx Bronchitis, Hx COPD, Hx Pneumonia Denies: Hx Asthma, Hx Tuberculosis Neurological Medical History: Denies: Hx Cerebrovascular Accident Endocrine Medical History: Reports: Hx Hypothyroidism. Denies: Hx Diabetes Mellitus Type 1 Renal/ Medical History: Denies: Hx Peritoneal Dialysis GI Medical History: Reports: Hx Gastroesophageal Reflux Disease Musculoskeletal Medical History: Reports Hx Arthritis Psychiatric Medical History: Denies: Hx Depression Past Surgical History: Reports: Hx Appendectomy, Hx Cholecystectomy - Immunizations Hx Diphtheria, Pertussis, Tetanus Vaccination: Yes - unknown Hx Pneumococcal Vaccination: 08/06/06 Review of Systems - Review of Systems Constitutional: No symptoms reported EENT: No symptoms reported Cardiovascular: No symptoms reported Respiratory: No symptoms reported Gastrointestinal: No symptoms reported Genitourinary: No symptoms reported Female Genitourinary: No symptoms reported Musculoskeletal: See HPI, Back pain Skin: No symptoms reported Hematologic/Lymphatic: No symptoms reported Neurological/Psychological: No symptoms reported Physical Exam - Vital signs Vitals: Temp Pulse Resp BP Pulse Ox 98.3 F 76 18 193/88 H 95 09/26/19 18:05 09/26/19 18:05 09/26/19 18:05 09/26/19 18:05 09/26/19 18:05 Interpretation: Normal, Hypertensive - General General appearance: Alert In distress: Mild - HEENT Head: Normocephalic Eyes: Normal Conjunctiva: Normal Cornea: Normal Extraocular movements intact: Yes Eyelashes: Normal Pupils: PERRL Nasal: Normal Mouth/Lips: Normal Pharynx: Normal Neck: Normal - Respiratory Respiratory status: No respiratory distress Chest status: Nontender Breath sounds: Normal Chest palpation: Normal - Cardiovascular Rhythm: Regular Heart sounds: Normal auscultation Murmur: No Friction rub: No Yuliana's crunch: No - Abdominal Inspection: Normal Distension: No distension Bowel sounds: Normal Tenderness: Nontender Organomegaly: No organomegaly - Back Back: Tender, Other - Right SI joint pain on palpation and range of motion of right lower extremity. - Extremities General upper extremity: Normal inspection General lower extremity: Normal inspection, Normal ROM - Neurological Neuro grossly intact: Yes Cognition: Normal Orientation: AAOx4 [place] Coma Scale Eye Opening: Spontaneous [place] Coma Scale Verbal: Oriented [place] Coma Scale Motor: Obeys Commands [place] Coma Scale Total: 15 Speech: Normal Cranial nerves: Normal Cerebellar coordination: Normal Motor strength normal: LUE, RUE, LLE, RLE - Psychological Associated symptoms: Normal affect - Skin Skin Temperature: Warm Skin Moisture: Dry Course - Vital Signs Vital signs: Temp Pulse Resp BP Pulse Ox 98.3 F 76 18 193/88 H 95 09/26/19 18:05 09/26/19 18:05 09/26/19 18:05 09/26/19 18:05 09/26/19 18:05 - Diagnostic Test Radiology reviewed: Reports reviewed - On x-ray with no acute deformity and only prior vertebral plasty L2 on radiology report Critical Care Note - Critical Care Note Total time excluding time spent on procedures (mins): 60 Comments: Patient received IM shot of Dilaudid Zofran and Decadron and Rx for Lidoderm patch and for Voltaren gel Discharge - Discharge Clinical Impression: Back pain of lumbosacral region with sciatica, Sacroiliac joint dysfunction of right side Condition: Good Disposition: HOME, SELF-CARE Additional Instructions: Follow-up with [facility] and avoid lifting bending or twisting or excessive walking or running. Return to ER for emergencies take medicine as directed and may apply Voltaren gel twice a day and Lidoderm at nighttime. Prescriptions: Diclofenac Sodium 100 gm TP BID PRN #100 gel..gram. PRN Reason: Lidocaine [Lidoderm 5% (700 mg) Transdermal Patch] 1 patch TP HSP PRN #30 adh..patch PRN Reason: Referrals: DUKE NUNEZ PA-C [ALLIED HEALTH PROFESSIONAL] - Follow up as needed
[2019-09-26] MEDS ORDERED: HYDROMORPHONE HCL INJ/PF 2 MG/ML AMPULE IM ONE (19:28)
[2019-09-26] MEDS ORDERED: DEXAMETHASONE SOD PHOS INJ 10 MG/1 ML VIAL IM ONE (19:29)
[2019-09-26] MEDS ORDERED: ONDANSETRON HCL INJ/PF 4 MG/2 ML SDV IM ONE (19:29)
[2019-09-26 20:21] VITALS: BP 170/90
== END 2019-09-26 20:23 | disposition home or self-care (01) ==
LOC: ER 17:58
DX: M54.40 Lumbago with sciatica, unspecified side (principal); G89.29 Other chronic pain; Z79.891 Long term (current) use of opiate analgesic; I10 Essential (primary) hypertension; J44.9 Chronic obstructive pulmonary disease, unspecified; Z88.0 Allergy status to penicillin; Z88.6 Allergy status to analgesic agent; Z88.5 Allergy status to narcotic agent; Z88.2 Allergy status to sulfonamides
CPT/HCPCS: 72110; J1170; J2405; J1100; 96372; 99285

== ENCOUNTER → 2019-12-17 | Outpatient (CLI) | payer MEDICARE, MEDICAID ==
[2019-12-17 14:00] LABS: ABSOLUTE EOSINOPHILS # (AUTO) 0.3 10^3/uL (0.0-0.6); ABSOLUTE LYMPHOCYTES (AUTO) 1.7 10^3/uL (0.5-4.7); ABSOLUTE MONOCYTES (AUTO) 0.7 10^3/uL (0.1-1.4); ABSOLUTE NEUT (AUTO) 4.1 10^3/uL (1.7-8.2); BASOPHILS % (AUTO) 0.7 % (0-2); EOSINOPHILS % (AUTO) 4.7 % (0-6); HEMATOCRIT 38.5 % (36.0-47.0); HEMOGLOBIN 13.4 g/dL (12.0-15.5); LYMPHOCYTES % (AUTO) 25.2 % (13-45); MEAN CORPUSCULAR HEMOGLOBIN 31.2 pg (27.0-33.4); MEAN CORPUSCULAR HGB CONC 34.7 g/dL (32.0-36.0); MEAN CORPUSCULAR VOLUME 90 fl (80-97); MONOCYTES % (AUTO) 9.8 % (3-13); PLATELET COUNT 210 10^3/uL (150-450); RED BLOOD COUNT 4.28 10^6/uL (3.72-5.28); SEGMENTED NEUTROPHILS % (AUTO) 59.6 % (42-78); TOTAL CELLS COUNTED % (AUTO) 100 %; WHITE BLOOD COUNT 6.8 10^3/uL (4.0-10.5)
[2019-12-17 14:04] LABS: APPEARANCE,URINE CLEAR; BILIRUBIN,URINE NEGATIVE (NEGATIVE); COLOR,URINE YELLOW; GLUCOSE, URINE NEGATIVE (NEGATIVE); KETONES,URINE NEGATIVE (NEGATIVE); LEUKOCYTE ESTERASE,URINE NEGATIVE (NEGATIVE); NITRITE,URINE NEGATIVE (NEGATIVE); PROTEIN,URINE 30 mg/dL (NEGATIVE); URINE SPECIFIC GRAVITY 1.012; UROBILINOGEN,URINE NEGATIVE mg/dL (<2.0)
[2019-12-17 14:20] LABS: ALBUMIN 3.6 g/dL (3.5-5.0); ALKALINE PHOSPHATASE 121 U/L (38-126); ANION GAP 5 (5-19); ASPARTATE AMINO TRANSFERASE 29 U/L (14-36); BILIRUBIN,TOTAL 0.3 mg/dL (0.2-1.3); BLOOD UREA NITROGEN 22 mg/dL (7-20); CALCIUM 9.8 mg/dL (8.4-10.2); CARBON DIOXIDE 26 mmol/L (22-30); CHLORIDE 108 mmol/L (98-107); GLUCOSE 91 mg/dL (75-110); POTASSIUM 5.1 mmol/L (3.6-5.0); TOTAL PROTEIN 6.7 g/dL (6.3-8.2)
== END ==
LOC: OD 12:35
PROVIDERS: ATTEND Physician Assistant
DX: E03.9 Hypothyroidism, unspecified (principal); E55.9 Vitamin D deficiency, unspecified; R53.1 Weakness
CPT/HCPCS: 36415; 80053; 81001; 82306; 84436; 84443; 85025; 87086

== ENCOUNTER 2019-12-27 14:34 | Emergency (ER) | payer MEDICARE, MEDICAID ==
--- NOTE | 2019-12-27 14:57 | ER Document Report ---
ED General - General Chief Complaint: Chest Pain Stated Complaint: CHEST PAIN Primary Care Provider: DUKE SAVAGE PA [Primary Care Provider] - Follow up as needed Information source: Patient Notes: Patient is an 84-year-old female presenting to the emergency department chief complaint of chest pain. Patient states that it started out yesterday or the day before as left-sided scapular pain and now entails the whole thoracic cavity. Patient states it is worse with a deep breath. TRAVEL OUTSIDE OF THE [place] IN LAST 30 DAYS: No - HPI Onset: This morning Onset/Duration: Gradual Quality of pain: Achy Severity: Mild Pain Level: 1 Associated symptoms: Chest pain. denies: Diarrhea, Nausea, Vomiting Exacerbated by: Denies Relieved by: Denies Similar symptoms previously: Yes Recently seen / treated by doctor: No - Related Data Allergies/Adverse Reactions: ampicillin [Ampicillin] Allergy (Verified 02/24/18 17:00) codeine [Codeine] Allergy (Verified 02/24/18 17:00) Sulfa (Sulfonamide Antibiotics) Allergy (Verified 02/24/18 17:00) Past Medical History - General Information source: Patient, [facility] Records - Social History Smoking Status: Unknown if Ever Smoked Chew tobacco use (# tins/day): No Frequency of alcohol use: None Drug Abuse: None Family History: Reviewed & Not Pertinent, Other Patient has suicidal ideation: No Patient has homicidal ideation: No - Past Medical History Cardiac Medical History: Reports: Hx Atrial Fibrillation, Hx DVT, Hx Heart Attack, Hx Hypertension, Hx Pulmonary Embolism Denies: Hx Coronary Artery Disease Pulmonary Medical History: Reports: Hx Bronchitis, Hx COPD, Hx Pneumonia Denies: Hx Asthma, Hx Tuberculosis Neurological Medical History: Denies: Hx Cerebrovascular Accident Endocrine Medical History: Reports: Hx Hypothyroidism. Denies: Hx Diabetes Mellitus Type 1 Renal/ Medical History: Denies: Hx Peritoneal Dialysis GI Medical History: Reports: Hx Gastroesophageal Reflux Disease Musculoskeletal Medical History: Reports Hx Arthritis Psychiatric Medical History: Denies: Hx Depression Past Surgical History: Reports: Hx Appendectomy, Hx Cholecystectomy - Immunizations Hx Diphtheria, Pertussis, Tetanus Vaccination: Yes - unknown Hx Pneumococcal Vaccination: 08/06/06 Review of Systems - Review of Systems Notes: REVIEW OF SYSTEMS: CONSTITUTIONAL : Denies fever, chills, or sweats. Denies recent illness. EENT: Denies eye, ear, throat, or mouth pain or symptoms. Denies nasal or sinus congestion. CARDIOVASCULAR: Per HPI RESPIRATORY: Per HPI GASTROINTESTINAL: Denies abdominal pain. Denies nausea, vomiting, or diarrhea. Denies constipation. GENITOURINARY: Denies difficulty urinating, painful urination, burning, frequency, or blood in urine. MUSCULOSKELETAL: Denies neck or back pain or joint pain or swelling. SKIN: Denies rash or skin lesions. HEMATOLOGIC : Denies easy bruising or bleeding. NEUROLOGICAL: Denies altered mental status or loss of consciousness. Denies headache. Denies weakness or paralysis or loss of use of either side. Denies problems with gait or speech. Denies sensory or motor loss. PSYCHIATRIC: Denies suicidal or homicidal ideations 10 Systems are negative unless otherwise specified above Physical Exam - Vital signs Vitals: Resp BP Pulse Ox 20 187/100 H 99 12/27/19 14:32 12/27/19 14:32 12/27/19 14:32 - Notes Notes: PHYSICAL EXAMINATION: GENERAL: Well-appearing, well-nourished and in no acute distress. HEAD: Atraumatic, normocephalic. EYES: Pupils equal round and reactive to light, extraocular movements intact, sclera anicteric, conjunctiva are normal. ENT: nares patent, oropharynx clear without exudates. Moist mucous membranes. NECK: Normal range of motion, supple without lymphadenopathy, no appreciable JVD LUNGS: Lungs clear to auscultation bilaterally and equal. No wheezes rales or rhonchi. HEART: Regular rate and rhythm without murmurs ABDOMEN: Soft, nontender, normal bowel sounds. No guarding, no rebound. No masses appreciated. EXTREMITIES: Active full range of motion, no pitting or edema. No cyanosis. 2+ pulses x4 NEUROLOGICAL: No focal neurological deficits. Moves all extremities spontaneously and on command. SKIN: Warm, Dry, and intact. Normal turgor, no rashes or lesions noted. Course - Re-evaluation Re-evalutation: 12/27/19 17:35 Patient has been maintained in the emergency department on a tobacco blender while present. Patient has been reevaluated several times while in the emergency department and no signs of decompensation have been noted. After evaluation of laboratory EKG and radiologic studies I see no signs of pneumonia, pneumothorax, acute myocardial infarction, unstable angina dissection or pulmonary embolism, there are no signs of rib fractures, no signs of acute coronary syndrome and at this time feel the patient is stable for discharge. I have discussed these results with the patient answered all questions and patient is agreeable with discharge at this time. Patient should follow-up with her primary care provider in the next several days for continued monitoring. Patient should immediately return to the emergency department for worsening symp toms to include severe chest pain/tightness or discomfort, worsening shortness of breath, fever greater than 101 or other concerning signs or symptoms. - Vital Signs Vital signs: Temp Pulse Resp BP Pulse Ox 98.9 F 20 187/100 H 99 12/27/19 14:54 12/27/19 14:32 12/27/19 14:32 12/27/19 14:59 - Laboratory Result Diagrams: 12/27/19 14:39 12/27/19 14:39 Laboratory results interpreted by me: 12/27/19 12/27/19 14:39 14:39 RDW 14.6 H Eos % (Auto) 7.0 H Est GFR (MDRD) Non-Af 59 L Calcium 10.3 H - Diagnostic Test Radiology reviewed: Reports reviewed - EKG Interpretation by Me EKG shows normal: Sinus rhythm Rate: Normal Rhythm: NSR [place]/QRS: RBBB When compared to previous EKG there are: Previous EKG unavailable Discharge - Discharge Clinical Impression: Chest pain of unknown etiology Condition: Stable Disposition: HOME, SELF-CARE Instructions: Chest Pain of Unclear Cause ([facility]) Referrals: DUKE SAVAGE PA [Primary Care Provider] - Follow up as needed
--- NOTE | 2019-12-27 14:59 | RADIOLOGY REPORT (SQ) ---
EXAM DESCRIPTION: CHEST SINGLE VIEW IMAGES COMPLETED DATE/TIME: 12/27/2019 2:49 pm REASON FOR STUDY: Chest Pain COMPARISON: 07/17/2019. NUMBER OF VIEWS: One view. TECHNIQUE: Single frontal radiographic view of the chest acquired. LIMITATIONS: None. FINDINGS: LUNGS AND PLEURA: No opacities, masses or pneumothorax. No pleural effusion. Attenuated bl ood vessels and flattened sung-diaphragms. MEDIASTINUM AND HILAR STRUCTURES: No masses. Contour normal. HEART AND VASCULAR STRUCTURES: Heart normal in size. Normal vasculature. BONES: No acute findings. HARDWARE: None in the chest. OTHER: No other significant finding. IMPRESSION: COPD. NO ACUTE RADIOGRAPHIC FINDING IN THE CHEST. TECHNICAL DOCUMENTATION: JOB ID: [id number] 2010 [employer]- All Rights Reserved Reading location - IP/workstation name: [email or web address]
[2019-12-27 15:09] LABS: ALBUMIN 3.8 g/dL (3.5-5.0); ALKALINE PHOSPHATASE 126 U/L (38-126); ANION GAP 6 (5-19); ASPARTATE AMINO TRANSFERASE 32 U/L (14-36); BILIRUBIN,TOTAL 0.3 mg/dL (0.2-1.3); BLOOD UREA NITROGEN 18 mg/dL (7-20); CALCIUM 10.3 mg/dL (8.4-10.2); CARBON DIOXIDE 26 mmol/L (22-30); CHLORIDE 106 mmol/L (98-107); CREATINE KINASE 53 U/L (30-135); GLUCOSE 94 mg/dL (75-110); POTASSIUM 4.7 mmol/L (3.6-5.0)
[2019-12-27 15:19] LABS: ABSOLUTE BASOPHILS # (AUTO) 0.1 10^3/uL (0.0-0.2); ABSOLUTE EOSINOPHILS # (AUTO) 0.5 10^3/uL (0.0-0.6); ABSOLUTE LYMPHOCYTES (AUTO) 1.6 10^3/uL (0.5-4.7); ABSOLUTE MONOCYTES (AUTO) 0.6 10^3/uL (0.1-1.4); ABSOLUTE NEUT (AUTO) 4.1 10^3/uL (1.7-8.2); BASOPHILS % (AUTO) 1.3 % (0-2); HEMATOCRIT 40.6 % (36.0-47.0); HEMOGLOBIN 13.8 g/dL (12.0-15.5); MEAN CORPUSCULAR HEMOGLOBIN 30.6 pg (27.0-33.4); MEAN CORPUSCULAR VOLUME 90 fl (80-97); MONOCYTES % (AUTO) 8.3 % (3-13); PLATELET COUNT 219 10^3/uL (150-450); RED BLOOD COUNT 4.51 10^6/uL (3.72-5.28); RED CELL DISTRIBUTION WIDTH 14.6 % (11.5-14.0); SEGMENTED NEUTROPHILS % (AUTO) 60.4 % (42-78); TOTAL CELLS COUNTED % (AUTO) 100 %; WHITE BLOOD COUNT 6.9 10^3/uL (4.0-10.5)
[2019-12-27 15:20] LABS: CREATINE KINASE MB 3.06 ng/mL (<4.55)
[2019-12-27 15:22] LABS: TROPONIN I < 0.012 ng/mL
--- NOTE | 2019-12-27 17:07 | RADIOLOGY REPORT (SQ) ---
EXAM DESCRIPTION: CTA CHEST IMAGES COMPLETED DATE/TIME: 12/27/2019 4:55 pm REASON FOR STUDY: cp sob COMPARISON: 12/17/2018. TECHNIQUE: CT scan of the chest performed using helical scanning technique with dynamic intravenous contrast injection. Images reviewed with lung, soft tissue and bone windows. Reconstructed coronal and sagittal MPR images reviewed. Additional 3 dimensional post-processing performed to develop Maximal Intensity Projection images (FL P). All images stored on PACS. All CT scanners at this facility use dose modulation, iterative reconstruction, and/or weight based d osing when appropriate to reduce radiation dose to as low as reasonably achievable (ALARA). [facility]: Dose Right [facility]: CareDose [facility]: Dose Right [facility]: Teradose 4D [facility]: [employer] CONTRAST TYPE AND DOSE: contrast/concentration: Isovue 350.00 mg/ml; Total Contrast Delivered: 51.0 ml; Total Saline Delivered: 76.0 ml Contrast bolus adequate for pulmonary arteries and aorta. RENAL FUNCTION: BUN 18 creatinine 0.91. RADIATION DOSE: CT Rad equipment meets quality standard of care and radiation dose reduction techniq ues were employed. CTDIvol: 9.9 - 14.3 mGy. DLP: 550 mGy-cm. . LIMITATIONS: None. FINDINGS: LUNGS AND PLEURA: Chronic scarring. Calcified granulomas. No masses, infiltrates, or pne umothorax. No pleural effusions or pleural calcifications. AORTA AND GREAT VESSELS: No aneurysm. No dissection. HEART: No pericardial effusion. No significant coronary artery calcifications. PULMONARY ARTERIES: No emboli visualized in the main pulmonary arteries or the segmental branches. HILAR AND MEDIASTINAL STRUCTURES: No identified masses or abnormal nodes. HARDWARE: None in the chest. UPPER ABDOMEN: No significant findings. Limited exam. THYROID AND OTHER SOFT TISSUES: No masses. No adenopathy. BONES: No acute or significant finding. 3D MIPS: Confirm above findings. OTHER: No other significant finding. IMPRESSION: NORMAL CTA OF THE CHEST. NO PULMONARY EMBOLI. COMMENT: Quality ID # [id number]: Final reports with documentation of one or more dose reduction techniques (e.g., Automated exposure control, adjustment of the mA and/or kV according to patient size, use of iterative reconstruction technique) TECHNICAL DOCUMENTATION: JOB ID: [id number] 2010 [employer]- All Rights Reserved Reading location - IP/workstation name: [email or web address]
--- NOTE | 2019-12-27 17:13 | EKG REPORT ---
SEVERITY:- ABNORMAL ECG - SINUS RHYTHM RIGHT BUNDLE BRANCH BLOCK : Confirmed by: Tita Francis MD 27-Dec-2019 17:13:18
[2019-12-27 18:09] VITALS: BP 145/68
== END 2019-12-27 17:55 | disposition home or self-care (01) ==
LOC: ER 14:34
DX: R07.9 Chest pain, unspecified (principal); I45.10 Unspecified right bundle-branch block; I10 Essential (primary) hypertension; I25.2 Old myocardial infarction; J44.9 Chronic obstructive pulmonary disease, unspecified; Z86.711 Personal history of pulmonary embolism; Z87.01 Personal history of pneumonia (recurrent); Z88.0 Allergy status to penicillin; Z88.6 Allergy status to analgesic agent; Z88.5 Allergy status to narcotic agent; Z88.2 Allergy status to sulfonamides
CPT/HCPCS: 36415; 71045; 71275; 80053; 82550; 82553; 84484; 85025; 93005; 93010; 99285

== ENCOUNTER → 2020-01-09 | Outpatient (CLI) | payer MEDICARE, MEDICAID ==
--- NOTE | 2020-01-09 11:17 | RADIOLOGY REPORT (SQ) ---
EXAM DESCRIPTION: CT ABD/PELVIS WITH IV ORAL IMAGES COMPLETED DATE/TIME: 01/09/2020 10:21 am REASON FOR STUDY: ABDOMINAL PAIN, EPIGATRIC R10.13 EPIGASTRIC PAIN COMPARISON: CT of the abdomen and pelvis with contrast from 06/01/2019. TECHNIQUE: CT scan of the abdomen and pelvis performed using helical scanning technique with dynamic intravenous contrast injection. No oral contrast. Images reviewed with lung, soft tissue, and bone windows. Reconstructed coronal and sagittal MPR images reviewed. Delayed images for evaluation of the urinary system also acquired. All images stored on PACS. All CT scanners at this facility use dose modulation, iterative reconstruction, and/or weight based d osing when appropriate to reduce radiation dose to as low as reasonably achievable (ALARA). [facility]: Dose Right [facility]: CareDose [facility]: Dose Right [facility]: Teradose 4D [facility]: [employer] CONTRAST TYPE AND DOSE: 66 mL Omnipaque 350- low osmolar. RENAL FUNCTION: Creatinine 0.9 milligrams/deciliter. RADIATION DOSE: CT Rad equipment meets quality standard of care and radiation dose reduction techniq ues were employed. CTDIvol: 5.4 - 7.2 mGy. DLP: 607 mGy-cm. LIMITATIONS: None. FINDINGS: LOWER CHEST: Hiatal hernia. The nodular opacities in the right middle lobe, lingula and b oth lower lobes represent for the most part mucous plugs within ectatic bronchi. LIVER: The relative hypoattenuation hepatic parenchyma compared to the splenic parenchyma on the port al venous phase is suggestive on the line hepatic steatosis. The portal veins are patent. There is no hepatic mass. SPLEEN: Stable subcentimeter hypodense splenic lesions. There is no splenomegaly. PANCREAS: No acute gross abnormality of the pancreas. GALLBLADDER: The gallbladder is surgically absent. There is mild unchanged dilatation of the intrahe patic bile ducts. ADRENAL GLANDS: No mass or asymmetry. RIGHT KIDNEY AND URETER: Stable hypodense cystic renal lesions. There is no solid mass, hydronephros is, nephrolithiasis, hydroureter or ureterolithiasis. LEFT KIDNEY AND URETER: Stable hypodense cystic renal lesions. There is no solid mass, hydronephrosi s, nephrolithiasis, hydroureter or ureterolithiasis. AORTA AND VESSELS: No aneurysm of the abdominal aorta. RETROPERITONEUM: No retroperitoneal adenopathy, hemorrhage or mass. BOWEL AND PERITONEAL CAVITY: Colonic diverticulosis without diverticulitis. There is no bowel obstru ction, bowel wall thickening or pericolonic/ perienteric inflammation. There is no mesenteric adenop athy, free intraperitoneal fluid or mesenteric/ omental inflammation. APPENDIX: Surgically absent PELVIS: No abnormality of the uterus or adnexa that is apparent on CT. The urinary bladder is partia lly distended. ABDOMINAL WALL: Fat containing left inguinal hernia. BONES: Chronic compression fracture of the L2 vertebral body status post kyphoplasty. There is no ac alysha fracture. OTHER: No other finding. IMPRESSION: 1. No acute intra-abdominal abnormality. 2. Hiatal hernia. 3. Colonic diverticulosis without diverticulitis. 4. Status post cholecystectomy with mild unchanged dilatation of the intrahepatic bile ducts. TECHNICAL DOCUMENTATION: JOB ID: [id number] Quality ID # [id number]: Final reports with documentation of one or more dose reduction techniques (e.g., Au tomated exposure control, adjustment of the mA and/or kV according to patient size, use of iterative reconstruction technique) 2010 [employer]- All Rights Reserved Reading location - IP/workstation name: [email or web address]
== END ==
LOC: RAD 09:12
PROVIDERS: ATTEND Internal Medicine Gastroenterology
DX: K57.30 Diverticulosis of large intestine without perforation or abscess without bleeding (principal); K44.9 Diaphragmatic hernia without obstruction or gangrene; R10.13 Epigastric pain
CPT/HCPCS: 74177

== ENCOUNTER 2020-01-14 12:41 | Emergency (ER) | payer MEDICARE, MEDICAID ==
--- NOTE | 2020-01-14 13:29 | ER Document Report ---
ED Medical Screen (RME) - General Chief Complaint: Fall Injury Stated Complaint: FALL/SIDE PAIN Time Seen by Provider: 01/14/20 13:25 Primary Care Provider: WILD MCDONNELL MD [Primary Care Provider] - Follow up as needed Mode of Arrival: Wheelchair Information source: Patient Notes: 84-year-old female presents to ED for complaint of pain to the left shoulder and ribs after she fell down the stairs. She was watering her plants when some reason she fell and fell down the stairs. She states she cannot move her left shoulder or take a deep breath due to the pain in her left ribs. She is on Xarelto. She is alert and oriented at this time. I have greeted and performed a rapid initial assessment of this patient. A comprehensive ED assessment and evaluation of the patient, analysis of test results and completion of medical decision making process will be conducted by an additional ED providers. TRAVEL OUTSIDE OF THE [place] IN LAST 30 DAYS: No - Related Data Allergies/Adverse Reactions: ampicillin [Ampicillin] Allergy (Verified 01/14/20 13:27) codeine [Codeine] Allergy (Verified 01/14/20 13:27) Sulfa (Sulfonamide Antibiotics) Allergy (Verified 01/14/20 13:27) Past Medical History - Social History Family history: Reviewed & Not Pertinent - Past Medical History Cardiac Medical History: Reports: Hx Atrial Fibrillation, Hx DVT, Hx Heart Attack, Hx Hypertension, Hx Pulmonary Embolism Denies: Hx Coronary Artery Disease Pulmonary Medical History: Reports: Hx Bronchitis, Hx COPD, Hx Pneumonia Denies: Hx Asthma, Hx Tuberculosis Neurological Medical History: Denies: Hx Cerebrovascular Accident Endocrine Medical History: Reports: Hx Hypothyroidism. Denies: Hx Diabetes Mellitus Type 1 Renal/ Medical History: Denies: Hx Peritoneal Dialysis GI Medical History: Reports: Hx Gastroesophageal Reflux Disease Musculoskeltal Medical History: Reports Hx Arthritis Psychiatric Medical History: Denies: Hx Depression Past Surgical History: Reports: Hx Appendectomy, Hx Cholecystectomy - Immunizations Hx Diphtheria, Pertussis, Tetanus Vaccination: Yes - unknown Physical Exam - Vital signs Vitals: Temp 98.6 F 01/14/20 12:42 Course - Vital Signs Vital signs: Temp Pulse Resp BP Pulse Ox 98.6 F 78 22 H 152/102 H 97 01/14/20 12:47 01/14/20 12:47 01/14/20 12:47 01/14/20 12:47 01/14/20 12:47 Doctor's Discharge - Discharge Referrals: WILD MCDONNELL MD [Primary Care Provider] - Follow up as needed
--- NOTE | 2020-01-14 14:18 | RADIOLOGY REPORT (SQ) ---
EXAM DESCRIPTION: SCAPULA LEFT IMAGES COMPLETED DATE/TIME: 01/14/2020 2:01 pm REASON FOR STUDY: Left shoulder and rib pain after falling COMPARISON: None. TECHNIQUE: AP and lateral views of the left scapula were obtained. LIMITATIONS: None. FINDINGS: MINERALIZATION: Osteopenia. BONES: No acute fracture. JOINTS: No dislocation of the AC and glenohumeral joints. SOFT TISSUES: No abnormality. IMPRESSION: No acute osseous abnormality of the left scapula. TECHNICAL DOCUMENTATION: JOB ID: [id number] 2010 [employer]- All Rights Reserved Reading location - IP/workstation name: [email or web address]
--- NOTE | 2020-01-14 14:29 | RADIOLOGY REPORT (SQ) ---
EXAM DESCRIPTION: RIBS LEFT W/PA CHEST IMAGES COMPLETED DATE/TIME: 01/14/2020 2:01 pm REASON FOR STUDY: Left shoulder and rib pain after falling COMPARISON: CT of the chest with contrast from 12/27/2019. TECHNIQUE: Frontal view of the chest and additional views of the left ribs acquired. NUMBER OF VIEWS: Three views. LIMITATIONS: None. FINDINGS: FRONTAL CXR: The cardiomediastinal silhouette and pulmonary vasculature are within normal limits. There is biapical scarring, a calcified granuloma in the mid right hemithorax, and bronchiec tatic opacities in the right middle lobe. RIBS: No displaced rib fractures. OTHER: No other finding. IMPRESSION: No displaced left-sided rib fractures. COMMENT: SITE OF TRAUMA/COMPLAINT MARKED/STAMP COMPLETED: NO. TECHNICAL DOCUMENTATION: JOB ID: [id number] 2010 [employer]- All Rights Reserved Reading location - IP/workstation name: [email or web address]
[2020-01-14] MEDS ORDERED: HYDROCODONE/ACETAMINOPHEN 5-325 MG TABLET PO ONE (16:13)
--- NOTE | 2020-01-14 16:41 | RADIOLOGY REPORT (SQ) ---
EXAM DESCRIPTION: CT CERVICAL SPINE WITHOUT IMAGES COMPLETED DATE/TIME: 01/14/2020 4:30 pm REASON FOR STUDY: eval for neck trauma after a fall COMPARISON: None. TECHNIQUE: Axial images acquired through the cervical spine without intravenous contrast. Images re viewed with lung, soft tissue and bone windows. Reconstructed coronal and sagittal MPR images review ed. Images stored on PACS. All CT scanners at this facility use dose modulation, iterative reconstruction, and/or weight based d osing when appropriate to reduce radiation dose to as low as reasonably achievable (ALARA). [facility]: Dose Right [facility]: CareDose [facility]: Dose Right [facility]: Teradose 4D [facility]: Smart Prosetta RADIATION DOSE: CT Rad equipment meets quality standard of care and radiation dose reduction techniq ues were employed. CTDIvol: 19.5 mGy. DLP: 384 mGy-cm. mGy. LIMITATIONS: None. FINDINGS: ALIGNMENT: Anatomic. MINERALIZATION: Normal. VERTEBRAL BODIES: No fractures or dislocation. DISCS: Disc spaces are narrowed from C3 to C7. Marginal osteophytes are present. FACETS, LATERAL MASSES, POSTERIOR ELEMENTS: No fractures. No dislocation. No acute findings. HARDWARE: None in the spine. VISUALIZED RIBS: No fractures. LUNG APICES AND SOFT TISSUES: No significant or acute findings. OTHER: No other significant finding. IMPRESSION: Degenerative disc disease and spondylosis. No acute finding. TECHNICAL DOCUMENTATION: JOB ID: [id number] Quality ID # [id number]: Final reports with documentation of one or more dose reduction techniques (e.g., Au tomated exposure control, adjustment of the mA and/or kV according to patient size, use of iterative reconstruction technique) 2010 [employer]- All Rights Reserved Reading location - IP/workstation name: [email or web address]
--- NOTE | 2020-01-14 17:09 | ER Document Report ---
ED General - General Chief Complaint: Fall Injury Stated Complaint: FALL/SIDE PAIN Time Seen by Provider: 01/14/20 13:25 Primary Care Provider: WILD MCDONNELL MD [Primary Care Provider] - Follow up as needed Mode of Arrival: Wheelchair Information source: Patient TRAVEL OUTSIDE OF THE [place] IN LAST 30 DAYS: No - HPI Onset: Yesterday Onset/Duration: Sudden Quality of pain: No pain Severity: Moderate Pain Level: 3 Associated symptoms: None Exacerbated by: Movement - of her left shoulder and neck, Other - palpation of her left chest wall Relieved by: Remaining still Similar symptoms previously: No Recently seen / treated by doctor: No Notes: 84 year old female with a history of AFib, HTN, PE, COPD, Hypothyroidism, GERD here in the ER for left sided chest wall pain, left shoulder pain, left scapula pain, and neck pain since yesterday after she fell off her porch down 3-4 steps. The patient denies LOC or head trauma. The patient is on an anticogulant. Patient has some bruising and swelling of her left chest wall. Movement of her left arm and taking deep breaths makes the pain worse. - Related Data Allergies/Adverse Reactions: ampicillin [Ampicillin] Allergy (Verified 01/14/20 13:27) codeine [Codeine] Allergy (Verified 01/14/20 13:27) Sulfa (Sulfonamide Antibiotics) Allergy (Verified 01/14/20 13:27) Past Medical History - General Information source: Patient - Social History Smoking Status: Never Smoker Frequency of alcohol use: None Drug Abuse: None Family History: Reviewed & Not Pertinent, Other Patient has suicidal ideation: No Patient has homicidal ideation: No - Past Medical History Cardiac Medical History: Reports: Hx Atrial Fibrillation, Hx DVT, Hx Heart Attack, Hx Hypertension, Hx Pulmonary Embolism Denies: Hx Coronary Artery Disease Pulmonary Medical History: Reports: Hx Bronchitis, Hx COPD, Hx Pneumonia Denies: Hx Asthma, Hx Tuberculosis Neurological Medical History: Denies: Hx Cerebrovascular Accident Endocrine Medical History: Reports: Hx Hypothyroidism. Denies: Hx Diabetes Mellitus Type 1 Renal/ Medical History: Denies: Hx Peritoneal Dialysis GI Medical History: Reports: Hx Gastroesophageal Reflux Disease Musculoskeletal Medical History: Reports Hx Arthritis Psychiatric Medical History: Denies: Hx Depression Past Surgical History: Reports: Hx Appendectomy, Hx Cholecystectomy - Immunizations Hx Diphtheria, Pertussis, Tetanus Vaccination: Yes - unknown Hx Pneumococcal Vaccination: 08/06/06 Review of Systems - Review of Systems Constitutional: No symptoms reported EENT: No symptoms reported Cardiovascular: No symptoms reported Respiratory: No symptoms reported Gastrointestinal: No symptoms reported Genitourinary: No symptoms reported Female Genitourinary: No symptoms reported Musculoskeletal: Joint pain - left shoulder pain, Neck pain - midline and left sided neck pain, Other - chest wall pain and swelling on left Skin: Other - bruising of chest wall Hematologic/Lymphatic: No symptoms reported Neurological/Psychological: No symptoms reported -: Yes All other systems reviewed and negative Physical Exam - Vital signs Vitals: Temp 98.6 F 01/14/20 12:42 - Notes Notes: GENERAL: Well-appearing, well-nourished and in no acute distress. HEAD: Atraumatic, normocephalic. EYES: Pupils equal round and reactive to light, extraocular movements intact, sclera anicteric, conjunctiva are normal. ENT: External ears normal, nares patent, oropharynx clear without exudates. Moist mucous membranes. NECK: Midline cervical spine tenderness with no step offs. Normal range of motion, supple without lymphadenopathy or JVD. LUNGS: Breath sounds clear to auscultation bilaterally and equal. No wheezes rales or rhonchi. CHEST: Tender over left chest wall and left lateral torso. HEART: Regular rate and rhythm without murmurs, rubs or gallops. ABDOMEN: Soft, nontender, normoactive bowel sounds. No guarding, no rebound. No masses appreciated. EXTREMITIES: Tender over left shoulder and left clavicle with no deformities. Tender over left scapula. Normal range of motion, no pitting or edema. No clubbing or cyanosis. NEUROLOGICAL: Cranial nerves II through XII grossly intact. Normal speech, normal gait. PSYCH: Normal mood, normal affect. SKIN: Bruising of left chest wall. Warm, Dry, normal turgor, no rashes or lesions noted. Course - Re-evaluation Re-evalutation: 01/14/20 17:24 The patient fell down yesterday and landed on her left side. She has pain in her left shoulder, left clavicle, left chest wall, and neck. The patient patient has no fractures or other serious injuries seen on plain films or CT of the affected areas. Patient requested pain medication so she was given a short course of Hydrocodone since over the counter medications are not helping. Patient seems to simply have suffered contusions and sprains/strains alone. - Vital Signs Vital signs: Temp Pulse Resp BP Pulse Ox 98.6 F 78 22 H 152/102 H 97 01/14/20 12:47 01/14/20 12:47 01/14/20 12:47 01/14/20 12:47 01/14/20 12:47 - Diagnostic Test Radiology reviewed: Image reviewed, Reports reviewed Discharge - Discharge Clinical Impression: Contusion, chest wall Qualifiers: Encounter type: initial encounter Laterality: left Qualified Code(s): S20.212A - Contusion of left front wall of thorax, initial encounter Shoulder contusion Qualifiers: Encounter type: initial encounter Laterality: left Qualified Code(s): S40.012A - Contusion of left shoulder, initial encounter Cervical strain Qualifiers: Encounter type: initial encounter Qualified Code(s): S16.1XXA - Strain of muscle, fascia and tendon at neck level, initial encounter Condition: Stable Disposition: HOME, SELF-CARE Instructions: Chest Wall Pain ([facility]), Neck Injury (Cervical Strain) ([facility]), Rib Contusion ([facility]), Shoulder Injury ([facility]) Additional Instructions: Use over the counter Tylenol and Motrin for pain along with ice packs and heating pad. Use Hydrocodone for pain that is not well controlled. You had Xrays of your chest/ribs, shoulder, and scapula on the left that showed no fractures. You had a CT scan of your neck which showed no fractures. Consider using a sling for comfort for your left shoulder/arm. Prescriptions: Hydrocodone/Acetaminophen [Valencia 5-325 mg Tablet] 1 tab PO Q8H PRN 3 Days #9 tablet PRN Reason: Referrals: WILD MCDONNELL MD [Primary Care Provider] - Follow up as needed
[2020-01-14 18:02] VITALS: BP 186/87
== END 2020-01-14 18:02 | disposition home or self-care (01) ==
LOC: ER 12:41
DX: S40.012A Contusion of left shoulder, initial encounter (principal); S16.1XXA Strain of muscle, fascia and tendon at neck level, initial encounter; S20.212A Contusion of left front wall of thorax, initial encounter; W10.8XXA Fall (on) (from) other stairs and steps, initial encounter; Y93.89 Activity, other specified; I10 Essential (primary) hypertension; J44.9 Chronic obstructive pulmonary disease, unspecified; I48.91 Unspecified atrial fibrillation; Z79.01 Long term (current) use of anticoagulants; Z86.711 Personal history of pulmonary embolism; Z86.718 Personal history of other venous thrombosis and embolism; Z88.0 Allergy status to penicillin; Z88.6 Allergy status to analgesic agent; Z88.5 Allergy status to narcotic agent; Z88.2 Allergy status to sulfonamides
CPT/HCPCS: 99283; 71101; 73010; 72125; A9270

== ENCOUNTER → 2020-03-03 | Outpatient (CLI) | payer MEDICARE, MEDICAID ==
[2020-03-03 12:30] LABS: ANION GAP 6 (5-19); BLOOD UREA NITROGEN 20 mg/dL (7-20); CALCIUM 9.2 mg/dL (8.4-10.2); CARBON DIOXIDE 23 mmol/L (22-30); CHLORIDE 110 mmol/L (98-107); GLUCOSE 94 mg/dL (75-110); POTASSIUM 5.6 mmol/L (3.6-5.0)
== END ==
LOC: OD 10:10
PROVIDERS: ATTEND Family Medicine
DX: E87.5 Hyperkalemia (principal)
CPT/HCPCS: 36415; 80048

== ENCOUNTER → 2020-04-09 | Outpatient (CLI) | payer MEDICARE, MEDICAID ==
--- NOTE | 2020-04-09 18:20 | RADIOLOGY REPORT (SQ) ---
EXAM DESCRIPTION: CHEST PA/LATERAL IMAGES COMPLETED DATE/TIME: 04/09/2020 1:00 pm REASON FOR STUDY: CHRONIC FATIGUE COMPARISON: 12/27/2019 TECHNIQUE: Frontal and lateral radiographic views of the chest acquired. NUMBER OF VIEWS: Two view. LIMITATIONS: None. FINDINGS: LUNGS AND PLEURA: Chronic apical pleural thickening. Areas of chronic interstitial opacit y and scarring. No definite developing opacities. At least 1 calcified nodule in the right lung con sistent with previous granulomatous disease. MEDIASTINUM AND HILAR STRUCTURES: Stable contours. HEART AND VASCULAR STRUCTURES: Heart normal size. No evidence for failure. BONES: Osteopenic and kyphotic without new fracture suggested. HARDWARE: None in the chest. OTHER: No other significant finding. IMPRESSION: Chronic changes. No acute cardiopulmonary disease detected. TECHNICAL DOCUMENTATION: JOB ID: [id number] 2010 [employer]- All Rights Reserved Reading location - IP/workstation name: [email or web address]
== END ==
LOC: OD 12:28
PROVIDERS: ATTEND Family Medicine
DX: R53.82 Chronic fatigue, unspecified (principal); R91.1 Solitary pulmonary nodule
CPT/HCPCS: 71046

== ENCOUNTER → 2020-04-14 | Outpatient (CLI) | payer MEDICARE, MEDICAID ==
[2020-04-14 12:47] LABS: ABSOLUTE EOSINOPHILS # (AUTO) 0.4 10^3/uL (0.0-0.6); ABSOLUTE LYMPHOCYTES (AUTO) 1.5 10^3/uL (0.5-4.7); ABSOLUTE MONOCYTES (AUTO) 0.5 10^3/uL (0.1-1.4); ABSOLUTE NEUT (AUTO) 4.5 10^3/uL (1.7-8.2); BASOPHILS % (AUTO) 0.7 % (0-2); EOSINOPHILS % (AUTO) 6.1 % (0-6); HEMATOCRIT 40.8 % (36.0-47.0); HEMOGLOBIN 13.7 g/dL (12.0-15.5); MEAN CORPUSCULAR HEMOGLOBIN 31.6 pg (27.0-33.4); MEAN CORPUSCULAR HGB CONC 33.7 g/dL (32.0-36.0); MEAN CORPUSCULAR VOLUME 94 fl (80-97); MONOCYTES % (AUTO) 7.4 % (3-13); PLATELET COUNT 209 10^3/uL (150-450); RED BLOOD COUNT 4.36 10^6/uL (3.72-5.28); RED CELL DISTRIBUTION WIDTH 16.7 % (11.5-14.0); SEGMENTED NEUTROPHILS % (AUTO) 64.8 % (42-78); TOTAL CELLS COUNTED % (AUTO) 100 %; WHITE BLOOD COUNT 6.9 10^3/uL (4.0-10.5)
[2020-04-14 13:07] LABS: ALBUMIN 3.8 g/dL (3.5-5.0); ALKALINE PHOSPHATASE 111 U/L (38-126); ASPARTATE AMINO TRANSFERASE 27 U/L (14-36); BILIRUBIN,DIRECT 0.2 mg/dL (0.0-0.4); BILIRUBIN,TOTAL 0.6 mg/dL (0.2-1.3); BLOOD UREA NITROGEN 19 mg/dL (7-20); CALCIUM 9.9 mg/dL (8.4-10.2); GLUCOSE 92 mg/dL (75-110); POTASSIUM 5.1 mmol/L (3.6-5.0); TOTAL PROTEIN 6.6 g/dL (6.3-8.2)
[2020-04-14 13:20] LABS: ANION GAP 8 (5-19); CARBON DIOXIDE 25 mmol/L (22-30); CHLORIDE 105 mmol/L (98-107)
[2020-04-14 13:54] LABS: FREE T4 (FREE THYROXINE) 0.9 ng/dL (0.78-2.19)
== END ==
LOC: OD 12:01
PROVIDERS: ATTEND Family Medicine
DX: I10 Essential (primary) hypertension (principal); E03.9 Hypothyroidism, unspecified
CPT/HCPCS: 36415; 80053; 84439; 84443; 85025